=== PATIENT | male | born 1965 | race Caucasian/White ===

== ENCOUNTER → 2019-11-07 08:58 | Outpatient (BNVA) | payer BC, SELFPAY | PROVIDERS: Family Provider Registered Nurse; PCP Registered Nurse; Visit Provider Registered Nurse | DX: E11.22 Type 2 diabetes mellitus with diabetic chronic kidney disease (principal); A52.16 Charcot's arthropathy (tabetic); N28.9 Disorder of kidney and ureter, unspecified; N18.3 Chronic kidney disease, stage 3 (moderate); M17.11 Unilateral primary osteoarthritis, right knee | CPT/HCPCS: 80053 ==

== ENCOUNTER 2020-03-02 17:19 | Inpatient (IN) | payer BC, SELFPAY ==
[2020-03-02 17:54] VITALS: BP 152/96; PULSE 72; RESP 18; TEMP 36.6; O2SAT 97; BMI 40.6
--- NOTE | 2020-03-02 20:11 | W.ED.ABDPA2 ---
HPI - Abdominal Pain General: Chief Complaint: Abdominal Pain Stated Complaint: abd pain Time Seen by Provider: 03/02/20 20:11 Source: patient Mode of arrival: ambulatory Limitations: no limitations History of Present Illness: HPI narrative: Patient comes in today for complaints of generalized abdominal pain going through to his back. Patient reports that he does have some congestive heart failure but overall that is controlled. 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 Patient states that he had a similar episode about 2 weeks ago that resolved with baking soda water. Patient does report some mild relief in pain after belching. Patient appears well. Patient appears in no severe pain at this time. Review of Systems General: Reports: 10 or more systems reviewed and unremarkable except in HPI and below GI: Reports: abdominal pain PFSH ED PFSH: Medical History (Updated 03/02/20 @ 22:43 by Gumaro Henderson DO) Anxiety Bilateral bunions Charcot's arthropathy CKD (chronic kidney disease) Coronary artery disease involving [place] heart without angina pectoris Last coronary angiogram 2017, possible small myocardial bridge mid LAD, luminal irregularities of LAD and circumflex, LVEF 35-40%. Diabetes mellitus Hammer toes of both feet History of atrial flutter Acute episode in 2017, required cardioversion Hypertension Non-pressure chronic ulcer of other part of right foot with unspecified severity Onychomycosis Type 2 diabetes mellitus with diabetic chronic kidney disease Surgical History Status post incision and drainage Left foot abscess 2016 Family History Brother CAD (coronary artery disease) Diabetes Hypertension Father Diabetes Hypertension Mother Hypertension Denies family history of Clotting disorder Dementia Hyperlipidemia Psychiatric illness Chronic kidney disease (CKD) Suicide Anesthesia complication Bleeding disorder Family history of premature coronary artery disease Lung disease Cancer Stroke Social History Smoking and tobacco status: never smoked Second hand smoke exposure: No Alcohol intake: former Physical Exam Const: COMMON NORMALS: no acute distress and patient oriented x3 GENERAL APPEARANCE: cooperative HENMT: COMMON NORMALS: normocephalic, TM's normal bilaterally and Normal external nose present HEAD & SCALP: normal to inspection and normocephalic NOSE: Normal external nose present TYMPANIC MEMBRANE: TM's normal bilaterally MOUTH: Normal oral and palatal mucosa present THROAT: posterior oropharynx normal Eye: GENERAL EYE: appearance normal, both eyes and all related structures Neck/C-Spine: COMMON NORMALS: full ROM Lymph: LYMPHATIC: no lymphadenopathy noted Chest: COMMONS NORMALS: normal inspection of the chest Resp: COMMON NORMALS: normal respiratory effort EFFORT & INSPECTION: Yes able to speak in complete sentences Cardio: COMMON NORMALS: regular rate and regular rhythm RATE: regular rate RHYTHM: regular rhythm GI: PALPATION: Yes Tenderness to palpation present (GI) (epigastric) : COMMON NORMALS: Yes no CVA tenderness BLADDER/KIDNEY EXAM: Yes no CVA tenderness Back/Pelvis: COMMON NORMALS: no CVA tenderness and thoracic and lumbar spine normal to inspection Extremity: COMMON NORMALS: normal to inspection Neuro: COMMON NORMALS: patient oriented x3 and moves all extremities Psych: COMMON NORMALS: mental status grossly normal and cooperative Skin: COMMON NORMALS: no rashes or lesions noted GENERAL SKIN EXAM: no rashes or lesions noted Course Vital Signs: Vital signs: Vital Signs Temperature 97.9 F 03/02/20 17:54 Pulse Rate 77 03/02/20 20:19 Respiratory Rate 18 03/02/20 22:18 Blood Pressure 148/89 03/02/20 20:19 Pulse Oximetry 96 03/02/20 22:18 MDM - Abdominal Pain MDM Narrative: Medical decision making narrative: Patient comes in for complaints of abdominal pain going through to his back. Patient reports a short episode about 2 weeks ago with similar discomfort. Patient reports that the pain returned this afternoon has persisted until this evening. Exam notes abdominal tenderness. Bowel sounds are present. Vital signs were normal. Differential diagnosis includes pancreatitis, cholecystitis, cholelithiasis, bowel obstruction, ACS. Laboratory values noted a lipase of 4900, mild elevation AST and ALT, and a bilirubin of 0.3. CT scan of the abdomen and pelvis noted a prominent gallbladder. Ultrasound of the abdomen limited noted gallstones and open ducts. Patient was medicated with morphine with good results. Patient needs admission for MRCP for further evaluation of the elevated pancreatic enzymes with repeat labs and possible surgical consult. Dr. Henderson was consulted and agreed with plan. Lab Data: Labs: Lab Results 03/02/20 03/02/20 03/02/20 Range/Units 18:10 20:14 20:14 WBC 8.9 (4.0-10.0) 10^3/ uL RBC 4.21 (4.1-5.3) 10^6/u L Hgb 12.1 (11.7-16.6) g/dL Hct 37.2 L (42.0-52.0) % MCV 88.4 (80-94) fL MCH 28.7 (28.0-34.0) pg MCHC 32.5 (30.0-36.0) g/dL RDW 12.0 L (12.1-15.1) % Plt Count 262 (130-400) 10^3/c mm MPV 11.9 H (7.4-10.4) fL Neut % (Auto) 74.2 % Lymph % (Auto) 16.7 % [place] % (Auto) 7.6 % Eos % (Auto) 1.0 % Baso % (Auto) 0.3 % Neut # (Auto) 6.6 (1.8-7.7) 10^3/u L Lymph # (Auto) 1.5 (0.8-4.8) 10^3/u L [place] # (Auto) 0.7 (0.2-0.9) 10^3/u L Eos # (Auto) 0.1 (0.0-0.8) 10^3/u L Baso # (Auto) 0.0 (0.0-0.1) 10^3/u L Nucleated RBC % (a uto) 0 % Nucleated RBCs # 0.0 /100WBC Sodium 141 (136-145) mmol/L Potassium 4.7 (3.5-5.1) mmol/L Chloride 102 (98-107) mmol/L Carbon Dioxide 22 (22-29) mmol/L Anion Gap 21.7 H (5-19) BUN 64 H (6-20) mg/dL Creatinine 2.1 H (0.7-1.2) mg/dL GFR Calculation 33.3 L (90-130) mL/min Glucose 149 H (65-115) mg/dL Calculated Osmolal ity 294 (285-295) mOsm/k g Calcium 10.4 (8.5-10.5) mg/dL Total Bilirubin 0.3 (0.15-1.2) mg/dL AST 78 H (0-40) U/L ALT 53 H (0-41) U/L Alkaline Phosphata se 116 (40-130) IU/L Troponin T Gen 5 n g/L (0-15) ng/mL Total Protein 7.1 (6.6-8.7) g/dL Albumin 4.4 (3.5-5.2) g/dL Globulin 2.7 (1.3-4.6) g/dL Lipase 4960 H (13-60) U/L Urine Color Yellow (Yellow) Urine Appearance Clear (CLEAR) Urine pH 5 (5-7) Ur Specific Gravit y 1.010 (1.005-1.030) Urine Protein 1+ H (Negative) Urine Glucose (UA) Norm (Normal) Urine Ketones Negative (Negative) Urine Blood 2+ H (Negative) Urine Nitrate Negative (Negative) Urine Bilirubin Neg (NEGATIVE) Urine Urobilinogen Norm (Negative) mg/dL Ur Leukocyte Claudia ase Negative (Negative) Urine RBC 5-10 H (0-2) /hpf Urine WBC Rare (0-5) /hpf Ur Squamous Epith Cells Rare (0-5) Urine Bacteria Trace (NONE) 03/02/20 Range/Units 20:14 WBC (4.0-10.0) 10^3/ uL RBC (4.1-5.3) 10^6/u L Hgb (11.7-16.6) g/dL Hct (42.0-52.0) % MCV (80-94) fL MCH (28.0-34.0) pg MCHC (30.0-36.0) g/dL RDW (12.1-15.1) % Plt Count (130-400) 10^3/c mm MPV (7.4-10.4) fL Neut % (Auto) % Lymph % (Auto) % [place] % (Auto) % Eos % (Auto) % Baso % (Auto) % Neut # (Auto) (1.8-7.7) 10^3/u L Lymph # (Auto) (0.8-4.8) 10^3/u L [place] # (Auto) (0.2-0.9) 10^3/u L Eos # (Auto) (0.0-0.8) 10^3/u L Baso # (Auto) (0.0-0.1) 10^3/u L Nucleated RBC % (a uto) % Nucleated RBCs # /100WBC Sodium (136-145) mmol/L Potassium (3.5-5.1) mmol/L Chloride (98-107) mmol/L Carbon Dioxide (22-29) mmol/L Anion Gap (5-19) BUN (6-20) mg/dL Creatinine (0.7-1.2) mg/dL GFR Calculation (90-130) mL/min Glucose (65-115) mg/dL Calculated Osmolal ity (285-295) mOsm/k g Calcium (8.5-10.5) mg/dL Total Bilirubin (0.15-1.2) mg/dL AST (0-40) U/L ALT (0-41) U/L Alkaline Phosphata se (40-130) IU/L Troponin T Gen 5 n g/L 67 H (0-15) ng/mL Total Protein (6.6-8.7) g/dL Albumin (3.5-5.2) g/dL Globulin (1.3-4.6) g/dL Lipase (13-60) U/L Urine Color (Yellow) Urine Appearance (CLEAR) Urine pH (5-7) Ur Specific Gravit y (1.005-1.030) Urine Protein (Negative) Urine Glucose (UA) (Normal) Urine Ketones (Negative) Urine Blood (Negative) Urine Nitrate (Negative) Urine Bilirubin (NEGATIVE) Urine Urobilinogen (Negative) mg/dL Ur Leukocyte Claudia ase (Negative) Urine RBC (0-2) /hpf Urine WBC (0-5) /hpf Ur Squamous Epith Cells (0-5) Urine Bacteria (NONE) EKG Data ^: EKG 1: Attestation: I personally reviewed and interpreted this EKG as follows: (2035, sinus rhythm, no ectopy, no ST elevation, regular rate 72 bpm) Discharge Plan Discharge Patient Disposition: Admitted As Inpatient Clinical Impression: Pancreatitis Qualifiers: Chronicity: acute Pancreatitis type: idiopathic Acute pancreatitis complication: unspecified Qualified Code(s): K85.00 - Idiopathic acute pancreatitis without necrosis or infection Condition: Stable Referrals: Sergio Godfrey FNP [Primary Care Provider] - Coding Level of Care Code ED Wildlife Policy Professional for g Fwd Exam Comprehensive
--- NOTE | 2020-03-02 20:17 | ECG_ITS ---
Measurements Intervals [place] Rate: 73 P: 49 MI: 173 QRS: -36 QRSD: 92 T: 48 QT: 381 QTc: 421 SINUS RHYTHM LEFT AXIS DEVIATION [QRS AXIS < -30] Compared to ECG 10/17/2016 09:05:04 Sinus tachycardia no longer present Electronically Signed On 03-03-2020 11:04:43 CDT by Riaz Trejo MD [id number]
[2020-03-02 20:19] VITALS: BP 148/89; PULSE 77; RESP 17; O2SAT 94
[2020-03-02 20:26] LABS: Basophils % 0.3 %; Eosinophils # 0.1 10^3/uL (0.0-0.8); Hematocrit 37.2 % (42.0-52.0); Hemoglobin 12.1 g/dL (11.7-16.6); Lymphocytes # 1.5 10^3/uL (0.8-4.8); Lymphocytes % 16.7 %; Mean Corpuscular HGB Conc 32.5 g/dL (30.0-36.0); Mean Corpuscular Hemoglobin 28.7 pg (28.0-34.0); Mean Corpuscular Volume 88.4 fL (80-94); Mean Platelet Volume 11.9 fL (7.4-10.4); Monocytes # 0.7 10^3/uL (0.2-0.9); Monocytes % 7.6 %; Neutrophils # 6.6 10^3/uL (1.8-7.7); Neutrophils % 74.2 %; Nucleated Red Blood Cells % 0 %; Platelet Count 262 10^3/cmm (130-400); Red Blood Count 4.21 10^6/uL (4.1-5.3); White Blood Count 8.9 10^3/uL (4.0-10.0)
[2020-03-02 20:41] LABS: Alanine Aminotransferase 53 U/L (0-41); Albumin Level 4.4 g/dL (3.5-5.2); Alkaline Phosphatase 116 IU/L (40-130); Anion Gap 21.7 (5-19); Aspartate Amino Transferase 78 U/L (0-40); Blood Urea Nitrogen 64 mg/dL (6-20); Calcium 10.4 mg/dL (8.5-10.5); Carbon Dioxide 22 mmol/L (22-29); Chloride 102 mmol/L (98-107); Globulin 2.7 g/dL (1.3-4.6); Glomerular Filtration Rate 33.3 mL/min (90-130); Glucose 149 mg/dL (65-115); Osmolality Calculated 294 mOsm/kg (285-295); Potassium 4.7 mmol/L (3.5-5.1); Sodium 141 mmol/L (136-145); Total Bilirubin 0.3 mg/dL (0.15-1.2); Total Protein 7.1 g/dL (6.6-8.7)
[2020-03-02 20:42] LABS: Troponin T (5th) Once 67 ng/mL (0-15)
--- NOTE | 2020-03-02 20:52 | CTR_ITS ---
PROCEDURE INFORMATION: Exam: CT Abdomen And Pelvis Without Contrast Exam date and time: 03/02/2020 9:05 PM Age: 54 years old Clinical indication: Abdominal pain; Localized; Patient HX: C/O upper abd and flank pain; Additional info: Gastric pain, renal dysfuction TECHNIQUE: Imaging protocol: Computed tomography of the abdomen and pelvis without contrast. Radiation optimization: All CT scans at this facility use at least one of these dose optimization techniques: automated exposure control; mA and/or kV adjustment per patient size (includes targeted exams where dose is matched to clinical indication); or iterative reconstruction. COMPARISON: No relevant prior studies available. RADIATION DOSE METRICS: Total DLP: 2085.48 mGy-cm FINDINGS: Liver: Normal. No mass. Gallbladder and bile ducts: Gallbladder appears prominent, ultrasound could further characterize this. Pancreas: Normal. No ductal dilation. Spleen: Normal. No splenomegaly. Adrenals: Normal. No mass. Kidneys and ureters: Normal. No hydronephrosis. Stomach and bowel: Constipation. Appendix: No evidence of appendicitis. Intraperitoneal space: Unremarkable. No free air. No significant fluid collection. Vasculature: Unremarkable. No abdominal aortic aneurysm. Lymph nodes: Unremarkable. No enlarged lymph nodes. Bladder: Unremarkable as visualized. Reproductive: Unremarkable as visualized. Bones/joints: Unremarkable. No acute fracture. Soft tissues: Unremarkable. CT/CT kidney stone [id number] IMPRESSION: 1. Negative for acute inflammatory process. 2. Gallbladder appears prominent, ultrasound could further characterize this. 3. Constipation. Radiation Dose CTDIVOL = (mGy): DLP = 2085.48 (mGy-cm)
[2020-03-02 20:58] LABS: Add Urine Microscopic? YES; Bilirubin Urine Neg (NEGATIVE); Blood Urine 2+ (Negative); Glucose Urine UA Norm (Normal); Ketones Urine Negative (Negative); Leukocyte Esterase Urine Negative (Negative); Nitrate Urine Negative (Negative); Protein Urine 1+ (Negative); Urine Appearance Clear (CLEAR); Urine Color Yellow (Yellow); Urobilinogen Urine Norm (Negative); pH Urine 5 (5-7)
[2020-03-02 21:00] LABS: Bacteria Urine TRACE; Squamous Epithelial Cell Urine RARE (0-5); WBC Urine RARE /hpf (0-5)
[2020-03-02 21:01] LABS: Add Urine Culture? No
[2020-03-02 21:20] LABS: Lipase 4960 U/L (13-60)
--- NOTE | 2020-03-02 21:28 | USR_ITS ---
PROCEDURE INFORMATION: Exam: US Abdomen Limited, Right Upper Quadrant Exam date and time: 03/02/2020 10:03 PM Age: 54 years old Clinical indication: Abdominal pain; Acute; Additional info: Right upper quad, elevated lipase TECHNIQUE: Imaging protocol: Real-time ultrasound of the abdomen with image documentation. Examination was focused on the right upper quadrant. COMPARISON: CT kidney stone [id number] 03/02/2020 9:02 PM FINDINGS: Liver: Hepatic steatosis. Gallbladder: Cholelithiasis without cholecystitis. Common bile duct: Normal. No stones. No dilation. Pancreas: Visualized pancreas is unremarkable. Right kidney: Normal. No mass. No hydronephrosis. US/US abdomen limited [id number] IMPRESSION: 1. Cholelithiasis without cholecystitis. 2. Hepatic steatosis.
[2020-03-02 22:18] VITALS: RESP 18; O2SAT 96
[2020-03-02] MEDS: ondansetron 2 mg/ML SDV 2 mL 4 MG IVP (22:18)
[2020-03-02] MEDS: morphine 4 mg/mL SDV 1 mL IVP (22:18)
[2020-03-02 23:08] LABS: Troponin 5 2HR 74.09 ng/mL (0-15)
[2020-03-02 23:13] VITALS: BP 123/77; PULSE 77; RESP 19; O2SAT 94
[2020-03-02 23:19] LABS: Troponin 5 2HR Delta 7.09 ABS# (0-10)
--- NOTE | 2020-03-02 23:28 | P.HP_ITS ---
Providers/Chief Complaint Admitting Physician: Xuan Sainz MD Primary Care Provider: ANH Olivares Chief Complaint: upper abd and back pain History of Present Illness Ortiz Keene is a 54 year old male with PMH CAD, DM, Aflutter s/p cardiversion 2017, on Xarelto, HTN, CKD, charcot's arthropathy presented to ER with complaints of abdominal lois that started suddenly in the epigatsric area which was radiating in a band like manner to his back. he had nausea but no vomi ting. No bowel disturbances. H/o similar episode 2 weeks ago which resolved within 4-5 hours after eating food. No h/o alcohol intake. h/0 recent intentional weight loss + 50 pounds with improved glyemic control. Diagnostics in Er show elevated AST/ALT, normal ALP, elevated lipase >4900. Troponins are elevated at 67 annd 74, however without significant delta. Review of Systems General: Reports: 10 or more systems reviewed and unremarkable except in HPI and below Const: Denies: fever(s), chills or body aches Eyes: Denies: change in vision, blurry vision or photophobia ENMT: Denies: throat pain, enlarged tonsils, odynophagia, hoarseness or nasal congestion Card: Denies: chest pain, palpitations, irregular heart rhythm, edema, swelling of feet/ankles, lightheadedness, pre-syncope, dyspnea on exertion or orthopnea Resp: Denies: dyspnea, productive cough, non-productive cough, wheezing, stridor, pain on inspiration, change in phlegm color, hemoptysis or chest congestion GI: Denies: abdominal pain, nausea, vomiting, hematemesis, coffee ground emesis, dysphagia, heartburn, diarrhea, constipation, GI cramping, change in stool character, hematochezia or melena : Denies: flank pain, dysuria, urinary frequency, urinary urgency, urinary hesitancy or hematuria Musc: Denies: neck pain, back pain, extremity pain, joint swelling, joint warmth or deformity Neuro: Denies: headache(s), numbness in extremities, weakness in extremities, sensory changes, difficulty walking, frequent falls, dizziness, vertigo, behavioral changes, Slurred speech present or seizure-like activity Psych: Denies: anxiety, depression, suicidal ideation or homicidal ideation Endo: Denies: polyuria, polydipsia, tired all the time, cold intolerance or hot flashes Sami/Lymph: Denies: easy bruising or easy bleeding Medications/Allergies Home Medications Medication Instructions Recorded Confirmed Last Taken Type acetaminophen 300 mg-codeine 30 mg 1 tab PO Q6H PRN 11/16/19 03/03/20 Unknown History tablet prednisone 20 mg tablet 20 mg PO DAILY #30 tab 12/08/19 02/20/20 Unknown Rx blood sugar diagnostic #50 each 01/04/20 02/20/20 Unknown Rx blood sugar diagnostic #100 each 01/08/20 02/20/20 Unknown Rx rivaroxaban 20 mg tablet 20 mg PO QDAY 90 Days #90 tab 01/08/20 02/20/20 Unknown Rx metoprolol tartrate 100 mg tablet 100 mg PO BID #60 tab 01/12/20 03/03/20 Un known Rx potassium chloride 10 mEq 10 meq PO QDAY #90 cap 01/12/20 03/03/20 Unknown Rx capsule,extended release furosemide 40 mg tablet 40 mg PO QAM #90 tab 01/15/20 03/03/20 Unknown Rx losartan 100 0.5 tab PO BID 90 Days #90 tab 02/05/20 03/03/20 Unknown Rx mg-hydrochlorothiazide 25 mg tablet cephalexin 500 mg capsule 500 mg PO BID 7 Days #14 cap 02/09/20 02/20/20 Unknown Rx erythromycin 5 mg/gram (0.5 %) eye 1 applic OPHTHALMIC (EYE) TID #1 gm 02/09/20 03/03/20 Unknown Rx ointment (3.5 gram tube) fluticasone propionate 50 2 spray INTRANASAL DAILY #9.9 ml 02/09/20 03/03/20 Unknown Rx mcg/actuation nasal spray,suspension gemfibrozil 600 mg tablet See Rx Instructions .ROUTE 02/16/20 03/03/20 Unknown Rx .COMPLEX #60 unknown measurement unit code: tablet meloxicam 15 mg tablet 15 mg PO DAILY #30 tab 02/19/20 03/03/20 Unknown Rx gabapentin 300 mg capsule 600 mg PO BID #60 cap 02/22/20 03/03/20 Unknown Rx buspirone 30 mg tablet See Rx Instructions .ROUTE 03/01/20 03/03/20 Unknown Rx .COMPLEX #180 tab metformin 500 mg tablet See Rx Instructions .ROUTE 03/01/20 03/03/20 Unknown Rx .COMPLEX #60 tab Allergies Allergy/AdvReac Type Severity Reaction Status Date / Time No Known Allergies Allergy Verified 02/20/20 08:44 PFSH Acute PFSH: Medical History Anxiety Bilateral bunions Charcot's arthropathy CKD (chronic kidney disease) Coronary artery disease involving [place] heart without angina pectoris Last coronary angiogram 2017, possible small myocardial bridge mid LAD, luminal irregularities of LAD and circumflex, LVEF 35-40%. Diabetes mellitus Hammer toes of both feet History of atrial flutter Acute episode in 2017, required cardioversion Hypertension Non-pressure chronic ulcer of other part of right foot with unspecified severity Onychomycosis Type 2 diabetes mellitus with diabetic chronic kidney disease Surgical History Status post incision and drainage Left foot abscess 2016 Family History Brother CAD (coronary artery disease) Diabetes Hypertension Father Diabetes Hypertension Mother Hypertension Denies family history of Clotting disorder Dementia Hyperlipidemia Psychiatric illness Chronic kidney disease (CKD) Suicide Anesthesia complication Bleeding disorder Family history of premature coronary artery disease Lung disease Cancer Stroke Social History Smoking and tobacco status: never smoked Second hand smoke exposure: No Alcohol intake: former Vitals/I&O/Wt Last Vital Signs Temp 97.9 F 03/02/20 17:54 Pulse 77 03/02/20 23:13 Resp 19 H 03/02/20 23:13 BP 123/77 03/02/20 23:13 Pulse Ox 94 03/02/20 23:13 Weight last 48 hrs Weight 136.078 kg Physical Exam Narrative: EXAM NARRATIVE: GEN: Awake, alert and oriented, no acute distress CVS: S1S2 N RS: CTA B/L Abd: Soft, non distended , bs+ , discomfort to palpation around epigatsric area ELECTROMECHANICAL TECHNOLOGIST: no focal neuro deficits Data : 03/03/20 02:22 03/03/20 02:22 CT Abd/Pel: Radiologist's impression: CT/CT kidney stone [id number] IMPRESSION: 1. Negative for acute inflammatory process. 2. Gallbladder appears prominent, ultrasound could further characterize this. 3. Constipation. U/s abdomen : US/US abdomen limited [id number] IMPRESSION: 1. Cholelithiasis without cholecystitis. 2. Hepatic steatosis. A&P Additional A&P Information Admit to med/surg for acute pancreatitis 1. Acute pancreatitis - patients complaint of typical epigatsric pain with radiation to back asociated with nausea together with elevated lipase appears clinically consistent with pancreatitis. However, of note no gross pancreatic inflammation is seen on Ct abdomen Liver enzymes show mild elevation but ALP and T.bili are normal, making cholangitis unlikely Alternate possibility of that of symptomatic cholelithiasis +/- passing of GB sludge, however ALP being normal makes this less likely IVF NS @ 125cc/hr Pain control with morphine prn Zofran for nausea Trend LFTs with morning labs Check TG level Calcium level within range No h.o alcohol consumption No offending medications noted on drug list 2. DM: insulin sliding scale 3. HTN: Continue metorpolol. Hold ARB-HCTZ combination given increasing cr over the past few months 4. CKD, unclear cause but may be diabetic nephropathy. Patient was previously on chronic meloxicam which has since been discontinued. Hold ARB for now 5. A fib : currently sinus rhythm, rate controlled. Continue Xarelto other medical issues as in HPI Full code DVT ppx: xarelto Attestations Medical Necessity Statement*: >2 midnight anticipated for management of acute pancreatitis, iv hydration , pain control Coding Level of Care Code Acute Lining Vamper for Elizabeth Díaz
--- NOTE | 2020-03-02 23:41 | XRR_ITS ---
PROCEDURE INFORMATION: Exam: XR Chest, 1 View Exam date and time: 03/03/2020 2:35 AM Age: 54 years old Clinical indication: Dyspnea; Additional info: Evalute for effusion TECHNIQUE: Imaging protocol: XR of the chest Views: 1 view. COMPARISON: CR Chest 1 [place] [id number] 03/08/2019 2:57 AM FINDINGS: Lungs: Unremarkable. No consolidation. Pleural space: Unremarkable. No pleural effusion. No pneumothorax. Heart/Mediastinum: Unremarkable. No cardiomegaly. Bones/joints: Unremarkable. XR/XR chest 1V portable [id number] IMPRESSION: No acute findings.
[2020-03-03] VITALS (10 sets, daily range): BP systolic 117–139; BP diastolic 73–85; PULSE 61–76; RESP 16–20; TEMP 36.6–37.2; O2SAT 94–97
[2020-03-03 00:16] LABS: Chol HDL Ratio 4.78 mg/dL (1.0-5.00); Cholesterol 191 mg/dL (0-200); HDL Cholesterol 40 mg/dL (60-100); LDL Cholesterol Calculated 123 mg/dL (50-129); LDL HDL Ratio 3.08 RATIO (0.00-3.22); Triglycerides 142 mg/dL (0-150)
[2020-03-03] MEDS: sodium chloride 0.9% 1,000 ML 125 ML IV ×3 (00:48→17:10)
[2020-03-03] MEDS: morphine 4 mg/mL SDV 1 mL IVP (00:49)
[2020-03-03 02:30] LABS: Basophils % 0.1 %; Eosinophils # 0.1 10^3/uL (0.0-0.8); Eosinophils % 1.4 %; Hematocrit 34.2 % (42.0-52.0); Hemoglobin 11.2 g/dL (11.7-16.6); Lymphocytes # 1.4 10^3/uL (0.8-4.8); Mean Corpuscular HGB Conc 32.7 g/dL (30.0-36.0); Mean Corpuscular Hemoglobin 29.5 pg (28.0-34.0); Mean Platelet Volume 11.5 fL (7.4-10.4); Monocytes # 0.7 10^3/uL (0.2-0.9); Monocytes % 9.3 %; Neutrophils # 5.4 10^3/uL (1.8-7.7); Neutrophils % 70.9 %; Nucleated Red Blood Cells % 0 %; Platelet Count 225 10^3/cmm (130-400); Red Cell Distribution Width 12.1 % (12.1-15.1); White Blood Count 7.7 10^3/uL (4.0-10.0)
[2020-03-03 02:46] LABS: Estmated Average Glucose 160; Hemoglobin A1C 7.2 % (4.0-6.0)
[2020-03-03 02:47] LABS: Alanine Aminotransferase 39 U/L (0-41); Alkaline Phosphatase 100 IU/L (40-130); Anion Gap 14.2 (5-19); Aspartate Amino Transferase 47 U/L (0-40); Blood Urea Nitrogen 56 mg/dL (6-20); Calcium 8.6 mg/dL (8.5-10.5); Carbon Dioxide 27 mmol/L (22-29); Chloride 103 mmol/L (98-107); Globulin 2.4 g/dL (1.3-4.6); Glomerular Filtration Rate 39.8 mL/min (90-130); Glucose 136 mg/dL (65-115); Osmolality Calculated 291 mOsm/kg (285-295); Potassium 4.2 mmol/L (3.5-5.1); Sodium 140 mmol/L (136-145); Total Bilirubin 0.3 mg/dL (0.15-1.2); Total Protein 6.4 g/dL (6.6-8.7)
[2020-03-03 02:48] LABS: Lactate (Lactic Acid level) 0.6 mmol/L (0.5-2.2); Troponin 5 6HR 77.33 ng/mL (0-15)
[2020-03-03 02:50] LABS: Troponin 5 6HR Delta 10.3 ng/L (0-12)
--- NOTE | 2020-03-03 02:53 | ECG_ITS ---
Measurements Intervals [place] Rate: 71 P: 32 IN: 133 QRS: -47 QRSD: 105 T: 48 QT: 395 QTc: 431 SINUS RHYTHM INCOMPLETE RIGHT BUNDLE BRANCH BLOCK [90+ ms QRS DURATION, TERMINAL R IN V1/V2, 40+ ms S IN I/aVL/V4/V5/V6] LEFT ANTERIOR FASCICULAR BLOCK [QRS AXIS <= -45, QR IN I, RS IN II] Compared to ECG 10/17/2016 09:05:04 Incomplete right bundle-branch block now present Left anterior fascicular block now present Sinus tachycardia no longer present Left-axis deviation no longer present Electronically Signed On 03-03-2020 11:08:44 CDT by Riaz Trejo MD [id number]
[2020-03-03] MEDS: morphine 4 mg/mL SDV 1 mL 2 MG IVP ×3 (06:21→21:07)
[2020-03-03] MEDS: FUROsemide 40 mg Tablet PO (06:22)
[2020-03-03 06:49] LABS: Glucose Point of Care 123 mg/dL (70-110)
[2020-03-03] MEDS: gemfibrozil 600 mg Tablet PO ×2 (08:37→17:10)
[2020-03-03] MEDS: rivaroxaban 10 mg Tablet 20 MG PO (08:37)
[2020-03-03] MEDS: metoprolol tartrate 50 mg Tablet 100 MG PO ×2 (08:37→17:10)
[2020-03-03] MEDS: gabapentin 300 mg Capsule 600 MG PO ×2 (08:40→17:10)
[2020-03-03 11:40] LABS: Glucose Point of Care 134 mg/dL (70-110)
--- NOTE | 2020-03-03 14:34 | P.PN_ITS ---
Subjective Subjective: Interval history: Chart reviewed, improved renal function. Resting quietly in bed, has had some improvement in abdominal discomfort and seems to be tolerating clear liquid diet. Location and quality of pain is unchanged. Discussed need to continue bowel rest, IV fluid hydration and pain control at this time which he is agreeable to. Has been voiding well. Medications: Reviewed: Yes Medication Review Details: Active Medications Generic Name Dose Route Start Last Admin Trade Name Freq PRN Reason Stop Dose Admin Al Hydrox/Mg [place] x/Simethicone 15 ml 03/02/20 23:41 Maalox PO Q6H PRN INDIGESTION Buspirone HCl 30 mg 03/03/20 10:00 03/03/20 08:42 Buspar PO 30 mg Q12H RANDALL Administration Dextrose 25 ml 03/02/20 23:40 D50w IVP ONCE PRN hypoglycemia prot ocol Protocol Dextrose 50 ml 03/02/20 23:40 D50w IVP PRN PRN hypoglycemia prot ocol Protocol Furosemide 40 mg 03/03/20 06:00 03/03/20 06:22 Lasix PO 40 mg QAM RANDALL Administration Gabapentin 600 mg 03/03/20 09:00 03/03/20 08:40 Neurontin PO 600 mg BID RANDALL Administration Gemfibrozil 600 mg 03/03/20 09:00 03/03/20 08:37 Lopid PO 600 mg BID RANDALL Administration Glucagon 1 mg 03/02/20 23:40 Glucagen IM ONCE PRN Adult Acute Hypog lycemia Prot. Protocol Dextrose 500 mls @ 100 mls /hr 03/02/20 23:40 D5w IV ONCE PRN Adult Acute Hypog lycemia Prot Protocol Sodium Chloride 1,000 mls @ 125 m ls/hr 03/02/20 23:45 03/03/20 08:36 Sodium Chloride 0.9% IV 125 mls/hr .Q8H RANDALL Administration Insulin Aspart 0 unit 03/03/20 08:00 03/03/20 11:44 Novolog SUBCUT Not Given WM&BEDTIME RANDALL Protocol Metoprolol Tartrat e 100 mg 03/03/20 09:00 03/03/20 08:37 Lopressor PO 100 mg BID RANDALL Administration Morphine Sulfate 2 mg 03/02/20 23:41 03/03/20 13:30 Morphine IVP 2 mg Q4H PRN Administration SEVERE PAIN Naloxone HCl 0.1 mg 03/02/20 23:41 Narcan IVP Q2M PRN OPIATERV Ondansetron HCl 4 mg 03/02/20 23:41 Zofran IVP Q8H PRN vomiting, or N/V if npo Rivaroxaban 20 mg 03/03/20 09:00 03/03/20 08:37 Xarelto PO 20 mg DAILY RANDALL Administration No Known Allergies Allergy (Verified 02/20/20 08:44) Vitals/I&O/Wt Last Vital Signs Temp 98.1 F 03/03/20 11:36 Pulse 63 03/03/20 11:36 Resp 18 03/03/20 13:30 BP 139/73 03/03/20 11:36 Pulse Ox 97 03/03/20 11:36 03/02/20 03/03/20 03/03/20 22:59 06:59 14:59 Intake Total 2175 / 2175 Output Total 410 / 410 600 / 600 Balance -410 / -410 1575 / 1575 Weight last 48 hrs Weight 136.078 kg Physical Exam Const: COMMON NORMALS: no acute distress, patient oriented x3 and alert GENERAL APPEARANCE: cooperative and comfortable NUTRITIONAL APPEARANCE: obese morbidly obese ORIENTATION/CONSCIOUSNESS: Yes awake HENMT: COMMON NORMALS: normocephalic, atraumatic, hearing grossly normal bilaterally and moist oral mucous membranes HEAD & SCALP: normocephalic and atraumatic Eye: COMMON NORMALS: Equal, round and reactive pupils present, EOMs intact bilaterally and conjunctivae normal CONJUNCTIVA: Yes conjunctivae normal PUPIL: Yes Equal, round and reactive pupils present Neck/C-Spine: COMMON NORMALS: full ROM GENERAL: Yes normal visual inspection and Yes trachea midline Chest: CHEST: Yes Symmetrical chest wall rise Resp: COMMON NORMALS: normal respiratory effort, No retractions, No use of accessory muscles and clear to auscultation bilaterally EFFORT & INSPECTION: Yes able to speak in complete sentences, Yes symmetric chest movement and No tachypneic AUSCULTATION: clear to auscultation bilaterally Cardio: COMMON NORMALS: regular rate, regular rhythm, S1 normal heart sound present, S2 normal heart sound present and No murmurs present (Cardio) RATE: regular rate RHYTHM: regular rhythm HEART SOUNDS: S1 normal heart sound present and S2 normal heart sound present GI: COMMON NORMALS: Normal to inspection, nondistended, normoactive bowel amy nds present and Soft to palpation INSPECTION: Yes central obesity PALPATION: Yes Soft to palpation, Yes Tenderness to palpation present (GI) (generalized with radiation to back) and No Rebound tenderness present Extremity: COMMON NORMALS: normal to inspection, full ROM, no clubbing, cyanosis or edema and no pedal edema Neuro: COMMON NORMALS: patient oriented x3, moves all extremities, no focal motor deficits and no sensory deficits noted SENSORIUM/ORIENTATION: Yes alert Psych: COMMON NORMALS: mental status grossly normal, Normal thought process present, cooperative, normal affect and speech normal SPEECH: Yes normal speech THOUGHT PROCESS: Normal thought process present Skin: COMMON NORMALS: no jaundice, no petechiae and no mottling NARRATIVE SKIN EXAM: -healing scab on anterior R leg Data : 03/03/20 02:22 03/03/20 02:22 Micro: Microbiology 03/03/20 02:22 Blood Culture - Preliminary Blood SPECIMEN COLLECTED 03/03/20 02:14 Blood Culture - Preliminary Blood SPECIMEN COLLECTED A&P Assessment and plan (1) Pancreatitis: -Presented with epigastric pain with radiation to the back, noted significant lipase elevation at 4960 -No noted inflammation or abnormality involving the pancreas on imaging -Unclear etiology as no history of EtOH abuse, diabetes appears to be controlled, no underlying liver disease, unlikely to be medication induced per review of med rec -Continue pain control, antiemetics as needed, IV fluid hydration, currently on clear liquid diet. Can advance diet as tolerated -Imaging reviewed showing constipation, cholelithiasis without cholecystitis and hepatic steatosis Status: Acute Qualifiers: Acute pancreatitis complication: unspecified Chronicity: acute Pancreatitis type: idiopathic Qualified Code(s): K85.00 - Idiopathic acute p ancreatitis without necrosis or infection (2) Type 2 diabetes mellitus with diabetic chronic kidney disease: -hx of NIDDM type II, on metformin -controlled based on A1c-7.2 -Accucheks, ISS, hypoglycemia precautions -consistent carb diet once PO appropriate Status: Chronic Qualifiers: Chronic kidney disease stage: stage 3 (moderate) Diabetes mellitus long term care social worker insulin use: without long term care social worker use Qualified Code(s): E11.22 - Type 2 diabetes mellitus with diabetic chronic kidney disease; N18.3 - Chronic kidney disease, stage 3 (moderate) (3) Hypertension: -Normotensive, continue to monitor vital signs -Continue oral antihypertensives Status: Chronic Qualifiers: Hypertension type: essential hypertension Qualified Code(s): I10 - Essential (primary) hypertension (4) History of atrial flutter: -Rate controlled, continue to monitor heart rate -Continue beta-maria isabel, anticoagulation with Xarelto Status: Chronic (5) Charcot's arthropathy: -Follows up with Dr. 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 -Baseline creatinine appears to be around 1-1.5 -Has superimposed MARTIN likely secondary to dehydration -On IVF hydration -Continue to monitor renal function, avoid nephrotoxins, renally dose meds Status: Chronic Qualifiers: Chronic kidney disease stage: stage 3 (moderate) Qualified Code(s): N18.3 - Chronic kidney disease, stage 3 (moderate) (7) Anxiety: Status: Chronic Additional A&P Information -Morbid obesity: BMI-41 kg/m2 -GI ppx with famotidine -DVT ppx not needed as on Xarelto -Dispo: home -Code status: FULL code Attestations Medical Necessity Statement*: Patient requires hospitalization for continued management of acute pancreatitis, requiring continued IV fluid hydration, pain control in addition to management of MARTIN on CKD stage 3 with need for continued monitoring of renal function. Time Spent in Patient Care: Greater than 35 minutes (>than 50% of time spent in counselling and/or direct pt care on unit) . 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 [facility] Fwd Exam Comprehensive Diagnoses Pancreatitis K85.00 Acute pancreatitis complication: unspecified Chronicity: acute Pancreatitis type: idiopathic Type 2 diabetes mellitus with diabetic chronic kidney disease E11.22; N18.3 Chronic kidney disease stage: stage 3 (moderate) Diabetes mellitus long term care social worker insulin use: without long term care social worker use Hypertension I10 Hypertension type: essential hypertension History of atrial flutter Z86.79 Charcot's arthropathy M14.60 CKD (chronic kidney disease) N18.3 Chronic kidney disease stage: stage 3 (moderate) Anxiety F41.9
[2020-03-03] MEDS: famotidine 20 mg/2 mL INJ IVP (15:18)
[2020-03-03 16:15] LABS: Glucose Point of Care 113 mg/dL (70-110)
[2020-03-03 20:08] LABS: Glucose Point of Care 147 mg/dL (70-110)
[2020-03-04] VITALS: BP 134/88; PULSE 67; RESP 20; TEMP 36.9; O2SAT 95
[2020-03-04] MEDS: sodium chloride 0.9% 1,000 ML 125 ML IV ×3 (00:37→15:21)
[2020-03-04 04:00] VITALS: BP 126/78; PULSE 65; RESP 16; TEMP 37.1; O2SAT 94
[2020-03-04] MEDS: ondansetron 2 mg/ML SDV 2 mL 4 MG IVP (05:24)
[2020-03-04] MEDS: FUROsemide 40 mg Tablet PO (05:24)
[2020-03-04] MEDS: famotidine 20 mg/2 mL INJ IVP (05:24)
[2020-03-04 06:21] LABS: Glucose Point of Care 184 mg/dL (70-110)
[2020-03-04 06:29] LABS: Basophils % 0.2 %; Eosinophils # 0.2 10^3/uL (0.0-0.8); Eosinophils % 1.6 %; Hematocrit 34.3 % (42.0-52.0); Hemoglobin 11.1 g/dL (11.7-16.6); Lymphocytes # 1.3 10^3/uL (0.8-4.8); Lymphocytes % 13.6 %; Mean Corpuscular HGB Conc 32.4 g/dL (30.0-36.0); Mean Corpuscular Volume 89.6 fL (80-94); Mean Platelet Volume 11.9 fL (7.4-10.4); Monocytes # 0.8 10^3/uL (0.2-0.9); Monocytes % 8.4 %; Nucleated Red Blood Cells % 0 %; Platelet Count 224 10^3/cmm (130-400); Red Blood Count 3.83 10^6/uL (4.1-5.3); Red Cell Distribution Width 11.9 % (12.1-15.1); White Blood Count 9.3 10^3/uL (4.0-10.0)
[2020-03-04 06:42] LABS: Anion Gap 14.4 (5-19); Blood Urea Nitrogen 35 mg/dL (6-20); Calcium 8.3 mg/dL (8.5-10.5); Carbon Dioxide 26 mmol/L (22-29); Chloride 102 mmol/L (98-107); Glomerular Filtration Rate 45.6 mL/min (90-130); Glucose 159 mg/dL (65-115); Lipase 164 U/L (13-60); Osmolality Calculated 287 mOsm/kg (285-295); Potassium 4.4 mmol/L (3.5-5.1); Sodium 138 mmol/L (136-145)
[2020-03-04 07:45] VITALS: BP 120/65; PULSE 69; RESP 18; TEMP 36.8; O2SAT 96
[2020-03-04] MEDS: gabapentin 300 mg Capsule 600 MG PO ×2 (08:20→17:56)
[2020-03-04] MEDS: metoprolol tartrate 50 mg Tablet 100 MG PO ×2 (08:21→17:54)
[2020-03-04] MEDS: rivaroxaban 10 mg Tablet 20 MG PO (08:21)
[2020-03-04] MEDS: gemfibrozil 600 mg Tablet PO ×2 (08:21→17:54)
[2020-03-04 11:05] LABS: Glucose Point of Care 124 mg/dL (70-110)
[2020-03-04 11:22] VITALS: BP 114/79; PULSE 59; RESP 18; TEMP 37; O2SAT 97
[2020-03-04 15:18] VITALS: BP 128/76; PULSE 64; RESP 18; TEMP 36.9; O2SAT 99
--- NOTE | 2020-03-04 15:43 | P.PN_ITS ---
Subjective Subjective: Interval history: Chart reviewed, renal function continues to improve. Has been ambulating in hallway intermittently throughout the day, feels much better today, advanced to consistent carb diet this AM which he is tolerating well. Minimal abdominal discomfort. Required 2 mg of IV morphine overnight, had 950 mL urine output overnight. Would like to see how he feels with more oral intake before considering d/c home. Medications: Reviewed: Yes Medication Review Details: Active Medications Generic Name Dose Route Start Last Admin Trade Name Freq PRN Reason Stop Dose Admin Hydrocodone Bitart /Acetaminophen 1 tab 03/04/20 15:35 [place] 5-325 Mg PO Q4H PRN MODERATE PAIN Al Hydrox/Mg [place] x/Simethicone 15 ml 03/02/20 23:41 Maalox PO Q6H PRN INDIGESTION Buspirone HCl 30 mg 03/03/20 10:00 03/04/20 10:56 Buspar PO 30 mg Q12H RANDALL Administration Dextrose 25 ml 03/02/20 23:40 D50w IVP ONCE PRN hypoglycemia prot ocol Protocol Dextrose 50 ml 03/02/20 23:40 D50w IVP PRN PRN hypoglycemia prot ocol Protocol Famotidine 20 mg 03/04/20 18:00 Pepcid Tab PO BID RANDALL Furosemide 40 mg 03/03/20 06:00 03/04/20 05:24 Lasix PO 40 mg QAM RANDALL Administration Gabapentin 600 mg 03/03/20 09:00 03/04/20 08:20 Neurontin PO 600 mg BID RANDALL Administration Gemfibrozil 600 mg 03/03/20 09:00 03/04/20 08:21 Lopid PO 600 mg BID RANDALL Administration Glucagon 1 mg 03/02/20 23:40 Glucagen IM ONCE PRN Adult Acute Hypog lycemia Prot. Protocol Dextrose 500 mls @ 100 mls /hr 03/02/20 23:40 D5w IV ONCE PRN Adult Acute Hypog lycemia Prot Protocol Sodium Chloride 1,000 mls @ 75 ml s/hr 03/02/20 23:45 03/04/20 15:21 Sodium Chloride 0.9% IV 125 mls/hr .[id number] RANDALL Administration Insulin Aspart 0 unit 03/03/20 08:00 03/04/20 11:20 Novolog SUBCUT Not Given WM&BEDTIME RANDALL Protocol Metoprolol Tartrat e 100 mg 03/03/20 09:00 03/04/20 08:21 Lopressor PO 100 mg BID RANDALL Administration Morphine Sulfate 2 mg 03/02/20 23:41 03/03/20 21:07 Morphine IVP 2 mg Q4H PRN Administration SEVERE PAIN Naloxone HCl 0.1 mg 03/02/20 23:41 Narcan IVP Q2M PRN OPIATERV Ondansetron HCl 4 mg 03/02/20 23:41 03/04/20 05:24 Zofran IVP 4 mg Q8H PRN Administration vomiting, or N/V if npo Rivaroxaban 20 mg 03/03/20 09:00 03/04/20 08:21 Xarelto PO 20 mg DAILY RANDALL Administration No Known Allergies Allergy (Verified 02/20/20 08:44) Vitals/I&O/Wt Last Vital Signs Temp 98.4 F 03/04/20 15:18 Pulse 64 03/04/20 15:18 Resp 18 03/04/20 15:18 BP 128/76 03/04/20 15:18 Pulse Ox 99 03/04/20 15:18 03/04/20 03/04/20 03/04/20 06:59 14:59 22:59 Intake Total 931.25 / 4826.25 1688.75 / 1688.75 872.917 / 2561.667 Output Total 500 / 2225 900 / 900 Balance 431.25 / 2601.25 788.75 / 788.75 872.917 / 1661.667 Weight last 48 hrs Weight 136.078 kg Physical Exam Const: COMMON NORMALS: no acute distress, patient oriented x3 and alert GENERAL APPEARANCE: cooperative and comfortable NUTRITIONAL APPEARANCE: obese morbidly obese ORIENTATION/CONSCIOUSNESS: Yes awake HENMT: COMMON NORMALS: normocephalic, atraumatic, hearing grossly normal bilaterally and moist oral mucous membranes HEAD & SCALP: normocephalic and atraumatic Eye: COMMON NORMALS: Equal, round and reactive pupils present, EOMs intact bilaterally and conjunctivae normal CONJUNCTIVA: Yes conjunctivae normal PUPIL: Yes Equal, round and reactive pupils present Neck/C-Spine: COMMON NORMALS: full ROM GENERAL: Yes normal visual inspection and Yes trachea midline Chest: CHEST: Yes Symmetrical chest wall rise Resp: COMMON NORMALS: normal respiratory effort, No retractions, No use of accessory muscles and clear to auscultation bilaterally EFFORT & INSPECTION: Yes able to speak in complete sentences, Yes symmetric chest movement and No tachypneic AUSCULTATION: clear to auscultation bilaterally Cardio: COMMON NORMALS: regular rate, regular rhythm, S1 normal heart sound present, S2 normal heart sound present and No murmurs present (Cardio) RATE: regular rate RHYTHM: regular rhythm HEART SOUNDS: S1 normal heart sound present and S2 normal heart sound present GI: COMMON NORMALS: Normal to inspection, nondistended, normoactive bowel sounds present, Soft to palpation and non-tender INSPECTION: Yes central obesity PALPATION: Yes Soft to palpation and No Rebound tenderness present Extremity: COMMON NORMALS: normal to inspection, full ROM, no clubbing, cyanosis or edema and no pedal edema Neuro: COMMON NORMALS: patient oriented x3, moves all extremities, no focal motor deficits, no sensory deficits noted and gait normal SENSORIUM/ORIENTATION: Yes alert Psych: COMMON NORMALS: mental status grossly normal, Normal thought process present, cooperative, normal affect and speech normal SPEECH: Yes normal speech THOUGHT PROCESS: Normal thought process present Skin: COMMON NORMALS: no jaundice, no petechiae and no mottling NARRATIVE SKIN EXAM: -healing scab on anterior R leg Data : 03/04/20 05:45 03/04/20 05:45 Micro: Microbiology 03/03/20 02:22 Blood Culture - Preliminary Blood NEGATIVE TO DATE 03/03/20 02:14 Blood Culture - Preliminary Blood NEGATIVE TO DATE A&P Assessment and plan (1) Pancreatitis: -Presented with epigastric pain with radiation to the back, noted significant lipase elevation at 4960; lipase significantly decreased today (164) -No noted inflammation or abnormality involving the pancreas on imaging -Unclear etiology as no history of EtOH abuse, diabetes appears to be controlled, no underlying liver disease, unlikely to be medication induced per review of med rec -Continue pain control, antiemetics as needed, IV fluid hydration, advanced to consistent carb diet. -Imaging reviewed showing constipation, cholelithiasis without cholecystitis and hepatic steatosis Status: Acute Qualifiers: Acute pancreatitis complication: unspecified Chronicity: acute Pancreatitis type: idiopathic Qualified Code(s): K85.00 - Idiopathic acute pancreatitis without necrosis or infection (2) Type 2 diabetes mellitus with diabetic chronic kidney disease: -hx of NIDDM type II, on metformin -controlled based on A1c-7.2 -Accucheks, ISS, hypoglycemia precautions -consistent carb diet once PO appropriate Status: Chronic Qualifiers: Chronic kidney disease stage: stage 3 (moderate) Diabetes mellitus joint terminal attack controller insulin use: without jail use Qualified Code(s): E11.22 - Type 2 diabetes mellitus with diabetic chronic kidney disease; N18.3 - Chronic kidney disease, stage 3 (moderate) (3) Hypertension: -Normotensive, continue to monitor vital signs -Continue oral antihypertensives Status: Chronic Qualifiers: Hypertension type: essential hypertension Qualified Code(s): I10 - Essential (primary) hypertension (4) History of atrial flutter: -Rate controlled, continue to monitor heart rate -Continue beta-maria isabel, anticoagulation with Xarelto Status: Chronic (5) Charcot's arthropathy: -Follows up with Dr. 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 Courtney l function continues to improve Status: Chronic Qualifiers: Chronic kidney disease stage: stage 3 (moderate) Qualified Code(s): N18.3 - Chronic kidney disease, stage 3 (moderate) (7) Anxiety: Status: Chronic Additional A&P Information -Morbid obesity: BMI-41 kg/m2 -GI ppx with famotidine -DVT ppx not needed as on Xarelto -Dispo: home -Code status: FULL code Attestations Medical Necessity Statement*: Patient requires hospitalization for continued treatment of acute pancreatitis, diet advanced today. Time Spent in Patient Care: 16 - 35 minutes (>than 50% of time spent in counselling and/or direct pt care on unit) . 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 [facility] Fwd Exam Comprehensive Diagnoses Pancreatitis K85.00 Acute pancreatitis complication: unspecified Chronicity: acute Pancreatitis type: idiopathic Type 2 diabetes mellitus with diabetic chronic kidney disease E11.22; N18.3 Chronic kidney disease stage: stage 3 (moderate) Diabetes mellitus joint terminal attack controller insulin use: without joint terminal attack controller use Hypertension I10 Hypertension type: essential hypertension History of atrial flutter Z86.79 Charcot's arthropathy M14.60 CKD (chronic kidney disease) N18.3 Chronic kidney disease stage: stage 3 (moderate) Anxiety F41.9
[2020-03-04 17:15] LABS: Glucose Point of Care 115 mg/dL (70-110)
[2020-03-04] MEDS: famotidine 20 mg Tablet PO (17:54)
[2020-03-04 19:23] VITALS: BP 137/84; PULSE 61; RESP 19; TEMP 36.6; O2SAT 98
[2020-03-04 20:31] LABS: Glucose Point of Care 203 mg/dL (70-110)
[2020-03-05] VITALS: BP 122/81; PULSE 58; RESP 18; TEMP 36.6; O2SAT 94
[2020-03-05] MEDS: sodium chloride 0.9% 1,000 ML 75 ML IV (03:11)
[2020-03-05 03:57] VITALS: BP 109/63; PULSE 64; RESP 18; TEMP 36.6; O2SAT 95
[2020-03-05] MEDS: FUROsemide 40 mg Tablet PO (05:28)
[2020-03-05 05:31] LABS: Chloride 106 mmol/L (98-107); Glucose 128 mg/dL (65-115); Potassium 4.5 mmol/L (3.5-5.1); Sodium 142 mmol/L (136-145)
[2020-03-05 05:47] LABS: Anion Gap 15.5 (5-19); Blood Urea Nitrogen 29 mg/dL (6-20); Calcium 8.9 mg/dL (8.5-10.5); Carbon Dioxide 25 mmol/L (22-29); Glomerular Filtration Rate 49.1 mL/min (90-130); Osmolality Calculated 293 mOsm/kg (285-295)
[2020-03-05 06:27] LABS: Glucose Point of Care 179 mg/dL (70-110)
[2020-03-05] MEDS: famotidine 20 mg Tablet PO (07:27)
[2020-03-05] MEDS: rivaroxaban 10 mg Tablet 20 MG PO (07:27)
[2020-03-05] MEDS: gemfibrozil 600 mg Tablet PO (07:27)
[2020-03-05] MEDS: gabapentin 300 mg Capsule 600 MG PO (07:27)
[2020-03-05] MEDS: metoprolol tartrate 50 mg Tablet 100 MG PO (07:28)
[2020-03-05] MEDS: HYDROcodone-acetaminophen 5-325 mg Tablet 1 TAB PO (07:28)
[2020-03-05 07:35] VITALS: BP 139/78; PULSE 68; RESP 18; TEMP 36.7; O2SAT 93
--- NOTE | 2020-03-05 08:58 | P.DS_ITS ---
Discharge Providers Date of Admission: 03/02/20 22:44 Date of Discharge: March 05, 2020 Attending Provider at Admission: Xuan Sainz MD Attending Provider at Discharge: Briana Galicia MD Primary Care Provider: ANH Olivares Diagnoses at Discharge Discharge Diagnosis (1) Pancreatitis: Status: Resolved Problem details: -Presented with epigastric pain with radiation to the back, noted significant lipase elevation at 4960; lipase significantly decreased today (164) -No noted inflammation or abnormality involving the pancreas on imaging -Unclear etiology as no history of EtOH abuse, diabetes appears to be controlled, no underlying liver disease, unlikely to be medication induced per review of med rec -Continue pain control, antiemetics as needed, IV fluid hydration, advanced to consistent carb diet. -Imaging reviewed showing constipation, cholelithiasis without cholecystitis and hepatic steatosis Qualifiers: Acute pancreatitis complication: unspecified Chronicity: acute Pancreatitis type: idiopathic Qualified Code(s): K85.00 - Idiopathic acute pancreatitis without necrosis or infection (2) Type 2 diabetes mellitus with diabetic chronic kidney disease: Status: Chronic Problem details: -hx of NIDDM type II, on metformin -controlled based on A1c-7.2 -Accucheks, ISS, hypoglycemia precautions -consistent carb diet once PO appropriate Qualifiers: Diabetes mellitus manager terminal insulin use: without long-term use Chronic kidney disease stage: stage 3 (moderate) Qualified Code(s): E11.22 - Type 2 diabetes mellitus with diabetic chronic kidney disease; N18.3 - Chronic kidney disease, stage 3 (moderate) (3) Hypertension: Status: Chronic Problem details: -Normotensive, continue to monitor vital signs -Continue oral antihypertensives Qualifiers: Hypertension type: essential hypertension Qualified Code(s): I10 - Essential (primary) hypertension (4) History of atrial flutter: Status: Chronic Problem details: -Acute episode in 2017, required cardioversion -Rate controlled, continue to monitor heart rate -Continue beta-maria isabel, anticoagulation with Xarelto (5) Charcot's arthropathy: Status: Chronic Problem details: -Follows up with Dr. Srivastava -Arthropathy involves left lower extremity (6) CKD (chronic kidney disease): Status: Chronic Problem details: -Has known CKD stage III secondary to diabetic nephropathy -Baseline creatinine appears to be around 1-1.5 -Has superimposed MARTIN likely secondary to dehydration -On IVF hydration -Continue to monitor renal function, avoid nephrotoxins, renally dose meds. Renal function continues to improve Qualifiers: Chronic kidney disease stage: stage 3 (moderate) Qualified Code(s): N18.3 - Chronic kidney disease, stage 3 (moderate) (7) Anxiety: Status: Chronic Other Information Additional DC diagnoses/information: -Morbid obesity: BMI-41 kg/m2 Reason for Visit Reason for Visit: Reason For Visit: upper abd and back pain Hospital Course Hospital Course: Patient was admitted to the medical surgical floor, started on IV fluid hydration, analgesics and antiemetics as needed for treatment of a cute pancreatitis. There was no noted inflammation or abnormality involving the pancreatic area on imaging the lipase was quite high on admission. He responded well to medical management, has been able to tolerate oral intake without difficulty, has had good urinary output consistently, been hemodynamically stable and afebrile throughout his hospital stay. He was noted to have acute kidney injury superimposed on CKD. Renal function has improved with hydration and is currently at his baseline. Etiology of acute pancreatitis is currently unclear. He will need to continue to follow-up with his primary care provider. He is advised to seek medical attention immediately should his symptoms recur. He is encouraged to continue appropriate hydration. He should continue to monitor his blood glucose at home. Discharge Summary: -Patient to follow-up with primary care provider within 1 week Physical Exam Const: COMMON NORMALS: no acute distress, patient oriented x3 and alert GENERAL APPEARANCE: cooperative and comfortable NUTRITIONAL APPEARANCE: obese morbidly obese ORIENTATION/CONSCIOUSNESS: Yes awake HENMT: COMMON NORMALS: normocephalic, atraumatic, hearing grossly normal bilaterally and moist oral mucous membranes HEAD & SCALP: normocephalic and atraumatic Eye: COMMON NORMALS: Equal, round and reactive pupils present, EOMs intact bilaterally and conjunctivae normal CONJUNCTIVA: Yes conjunctivae normal PUPIL: Yes Equal, round and reactive pupils present Neck/C-Spine: COMMON NORMALS: full ROM GENERAL: Yes normal visual inspection and Yes trachea midline Chest: CHEST: Yes Symmetrical chest wall rise Resp: COMMON NORMALS: normal respiratory effort, No retractions, No use of accessory muscles and clear to auscultation bilaterally EFFORT & INSPECTION: Yes able to speak in complete sentences, Yes symmetric chest movement and No tachypneic AUSCULTATION: clear to auscultation bilaterally Cardio: COMMON NORMALS: regular rate, regular rhythm, S1 normal heart sound present, S2 normal heart sound present and No murmurs present (Cardio) RATE: regular rate RHYTHM: regular rhythm HEART SOUNDS: S1 normal heart sound present and S2 normal heart sound present GI: COMMON NORMALS: Normal to inspection, nondistended, normoactive bowel sounds present, Soft to palpation and non-tender INSPECTION: Yes central obesity PALPATION: Yes Soft to palpation and No Rebound tenderness present Extremity: COMMON NORMALS: normal to inspection, full ROM, no clubbing, cyanosis or edema and no pedal edema Neuro: COMMON NORMALS: patient oriented x3, moves all extremities, no focal motor deficits, no sensory deficits noted and gait normal SENSORIUM/ORIENTATION: Yes alert Psych: COMMON NORMALS: mental status grossly normal, Normal thought process present, cooperative, normal affect and speech normal SPEECH: Yes normal speech THOUGHT PROCESS: Normal thought process present Skin: COMMON NORMALS: no jaundice, no petechiae and no mottling NARRATIVE SKIN EXAM: -healing scab on anterior R leg Discharge Data Data Completed and Pending: Completed Studies During Hospitalization Category Date Time Status CT kidney stone 7 4176 Urgent Cat Scan 03/02/20 20:52 Completed XR chest 1V alis ble [id number] Routine Exams 03/02/20 23:41 Completed US abdomen limite d 45909 Urgent Ultrasound 03/02/20 21:28 Completed Pending at discharge Category Date Time Status Blood Culture AM LABS Lab 03/03/20 02:22 Results Labs from last 24 hours 03/05/20 03/05/20 03/04/20 06:15 04:40 20:22 Sodium 142 Potassium 4.5 Chloride 106 Carbon Dioxide 25 Anion Gap 15.5 BUN 29 H Creatinine 1.5 H GFR Calculation 49.1 L Glucose 128 H POC Glucose 179 203 Calculated Osmolal ity 293 Calcium 8.9 03/04/20 03/04/20 17:01 11:03 Sodium Potassium Chloride Carbon Dioxide Anion Gap BUN Creatinine GFR Calculation Glucose POC Glucose 115 124 Calculated Osmolal ity Calcium Vitals: Last Vital Signs Temp 98.0 F 03/05/20 07:35 Pulse 68 03/05/20 07:35 Resp 18 03/05/20 07:35 BP 139/78 03/05/20 07:35 Pulse Ox 93 03/05/20 07:35 Discharge Plan Discharge Patient Disposition: Home, Self-Care Condition: Stable Prescriptions: Continued fluticasone propionate 50 mcg/actuation spray,suspension 2 spray INTRANASAL DAILY Qty: 9.9 RF: 3 acetaminophen-codeine [Tylenol-Codeine #3] 300-30 mg tablet 1 tab PO Q6H PRN (Reason: Mild Pain (Scale Score 1-4)) RF: 0 Xarelto 20 mg tablet 20 mg PO QDAY 90 Days Qty: 90 RF: 3 (DME) OneTouch Ultra Blue Test Strip Strip See Rx Instructions .ROUTE .MEDSUPPLY Qty: 100 RF: 0 potassium chloride 10 mEq capsule, extended release 10 meq PO QDAY Qty: 90 RF: 3 metoprolol tartrate 100 mg tablet 100 mg PO BID Qty: 60 RF: 1 furosemide [Lasix] 40 mg tablet 40 mg PO QAM Qty: 90 RF: 0 gemfibrozil 600 mg tablet See Rx Instructions .ROUTE .COMPLEX Qty: 60 RF: 0 gabapentin 300 mg capsule 600 mg PO BID Qty: 60 RF: 1 buspirone 30 mg tablet See Rx Instructions .ROUTE .COMPLEX Qty: 180 RF: 0 Changed metformin 500 mg tablet 500 mg PO BID 30 Days Qty: 60 RF: 0 Discontinued cephalexin 500 mg capsule 500 mg PO BID 7 Days Qty: 14 RF: 0 erythromycin 5 mg/gram (0.5 %) ointment 1 applic ophthalmic (eye) TID Qty: 1 RF: 0 losartan-hydrochlorothiazide 100-25 mg tablet 0.5 tab PO BID 90 Days Qty: 90 RF: 3 meloxicam 15 mg tablet 15 mg PO DAILY Qty: 30 RF: 0 Discharge Orders: Discharge Order (Routine); Ordered 03/05/20 Ordered By: Briana Galicia Referrals: Sergio Godfrey FNP [Primary Care Provider] - 4-7 days (Post hospital discharge follow up. Treated for acute pancreatitis and MARTIN. ) Discharge Diet: Diabetic Discharge Activity: Resume usual activity Discharge Attestations Time Spent in Discharge Care*: greater than 30 min Specific Discharge Activities: Specific discharge activities: educating patient, discussing with case investigator/social workers/dc planners, documenting/other paperwork and evaluating patient/reviewing data Status at Discharge: Cognitive status at discharge: cognitively intact , Behavioral status at discharge: cooperative and independent in ADL's , Functional status at discharge: independent ambulation Overall status at discharge: patient is back to baseline Quality Metrics Clinical Quality Measures During this hospital stay, did patient experience: None Coding Level of Care Code Acute Process Environmental Technician for Elizabeth Fwjorge Diagnoses Pancreatitis K85.00 Acute pancreatitis complication: unspecified Chronicity: acute Pancreatitis type: idiopathic Type 2 diabetes mellitus with diabetic chronic kidney disease E11.22; N18.3 Diabetes mellitus manager terminal insulin use: without manager terminal use Chronic kidney disease stage: stage 3 (moderate) Hypertension I10 Hypertension type: essential hypertension History of atrial flutter Z86.79 Charcot's arthropathy M14.60 CKD (chronic kidney disease) N18.3 Chronic kidney disease stage: stage 3 (moderate) Anxiety F41.9
[2020-03-05 09:04] VITALS: BP 139/78; PULSE 68; RESP 18; TEMP 36.7; O2SAT 93
[2020-03-05 11:17] LABS: Glucose Point of Care 132 mg/dL (70-110)
== END 2020-03-05 11:12 | disposition home or self-care (01) | DRG 439 ==
LOC: ER 22:43 → MEDSURG 23:02
PROVIDERS: Nurse Practitioner Family; Admitting Provider Student in an Organized Health Care Education/Training Program; PCP Registered Nurse; Visit Provider Family Medicine
DX: K85.00 Idiopathic acute pancreatitis without necrosis or infection (principal); N17.9 Acute kidney failure, unspecified; Z68.41 Body mass index [BMI] 40.0-44.9, adult; I25.10 Atherosclerotic heart disease of native coronary artery without angina pectoris; E11.22 Type 2 diabetes mellitus with diabetic chronic kidney disease; I12.9 Hypertensive chronic kidney disease with stage 1 through stage 4 chronic kidney disease, or unspecified chronic kidney disease; N18.3 Chronic kidney disease, stage 3 (moderate); Z79.01 Long term (current) use of anticoagulants; E11.610 Type 2 diabetes mellitus with diabetic neuropathic arthropathy; F41.9 Anxiety disorder, unspecified; M21.612 Bunion of left foot; M21.611 Bunion of right foot; M20.42 Other hammer toe(s) (acquired), left foot; M20.41 Other hammer toe(s) (acquired), right foot; B35.1 Tinea unguium; K76.0 Fatty (change of) liver, not elsewhere classified; E11.21 Type 2 diabetes mellitus with diabetic nephropathy; I48.91 Unspecified atrial fibrillation; E86.0 Dehydration; E66.01 Morbid (severe) obesity due to excess calories; K59.00 Constipation, unspecified; K81.9 Cholecystitis, unspecified; Z79.84 Long term (current) use of oral hypoglycemic drugs
CPT/HCPCS: 12345; 36415; 36416; 71045; 74176; 76705; 80048; 80053; 80061; 81001; 82962; 83036; 83605; 83690; 84484; 85025; 87040; 93005; 93010; 96372; 96375; 99283; J1815; J2270; J2405; J3490; J7030

== ENCOUNTER → 2020-04-29 10:53 | Outpatient (BNVA) | payer BC, SELFPAY | PROVIDERS: PCP Registered Nurse; Visit Provider Registered Nurse | DX: R50.9 Fever, unspecified (principal); J01.40 Acute pansinusitis, unspecified | CPT/HCPCS: 87635 ==

== ENCOUNTER → 2020-10-07 08:44 | Outpatient (BNVA) | payer BC, SELFPAY | PROVIDERS: PCP Registered Nurse; Visit Provider Registered Nurse | DX: E11.42 Type 2 diabetes mellitus with diabetic polyneuropathy (principal) | CPT/HCPCS: 80053; 83036 ==

== ENCOUNTER 2020-12-16 07:01 | Outpatient (CLI) | payer OTHER, SELFPAY ==
--- NOTE | 2020-12-16 07:24 | ECG_ITS ---
[facility] Test Date: 2020-12-16 Pat Name: Ortiz Keene Department: Room: Gender: Male Emissions Technician: Teresa Ascencio : 1965 Requested By: Flash Wilson Order Number: [id number] Reading MD: FLASH WILSON Interpretive Statements NAME OF STUDY: LEXISCAN SESTAMIBI STRESS TEST INDICATION: Chest Pain NOTE: Please note that this is the electrocardiogram portion of the Lexiscan/Sestamibi stress test. The perfusion scan will be documented separately. DATA: Baseline heart rate was 66 beats per minute. Baseline blood pressure was 185/107 Millimeters of mercury. Target heart rate was 167. Maximum heart rate achieved was 90. which was 53% of the predicted target heart rate. Maximum blood pressure was 202/113 millimeters of mercury. The reason for ending the test was completion of the protocol. The patient did not experience any symptoms. ELECTROCARDIOGRAM: BASELINE: Sinus rhythm. Normal axis. Otherwise, no ST-T changes suggestive of ischemia noted. No arrhythmia noted. EXERCISE: After Lexiscan injection, no ST-T changes suggestive of ischemic noted. No arrhythmia noted. CONCLUSION: Please note due to baseline abnormality of the EKG specificity and sensitivity of the EKG portion of LexiScan MIBI stress test will be low 1. EKG not suggestive of ischemia 2. Lexiscan injection unremarkable. 3. Perfusion scan will be documented separately. Electronically Signed On 12-19-2020 19:41:[address] LIGHT SERVICER by FLASH WILSON [id number]
--- NOTE | 2020-12-16 07:24 | NMCV_ITS ---
NM keo perf SPECT r/s* [id number] [place]wood, Ortiz Age: 55 Gender: M : 1965 Exam Date: 12/16/2020 08:38 Ordering Phys: Flash Olivares MD ([email or web address]) Technologist: SLY Mcgee Exam Location: [facility] Indications: CARDIOMYOPATHY STRESS TEST Please see separate stress test report in [facility] for full findings IMAGE PROTOCOL Rest/Stress 1 Lexiscan Day Radiopharmaceutical Dose (mCi) Administration Site Administered by Rest: Tc-99m 10.9 IV SLY Foster Sestamibi Stress:Tc-99m 33.0 IV SLY Foster Sestamibi Rest: 16-Dec-2020 60 Discovery 630 Stress: 16-Dec-2020 30 Discovery 630 0.4mg Lexiscan. Images obtained in supine and prone position. SPECT RESULTS Technical Quality: Excellent Raw Data Analysis: Normal Image Corrections: No attenuation or motion correction applied Summed Stress Score: 2 Summed Rest Score: 2 Summed Difference Score: 1 PERFUSION FINDINGS Medium-sized area of patchy decreased tracer uptake noted in the basal to mid inferior inferolateral wall on both rest and stress images' suggestive of artifact FUNCTIONAL RESULTS (calculated via Gated SPECT) Stress Image LV EF (%): 58 Stress EDV (mL):145 TID: 1.01 Stress ESV (mL):61 Rest Image LV EF (%): 58 FUNCTIONAL FINDINGS: There is normal left ventricular systolic function. IMPRESSIONS This study is negative for ischemia. EKG segment will be documented separately. Flash Olivares MD (Electronically Signed) Final Date: 17 December 2020 22:07 S
[2020-12-16 07:25] VITALS: BMI 42.7
[2020-12-16 09:11] VITALS: BP 160/96; PULSE 85
[2020-12-16] MEDS: regadenoson 0.4 Mg/5 ml Syringe IVP (09:11)
--- NOTE | 2020-12-16 11:00 | USCV_ITS ---
Ortiz Keene Age: 55 Gender: M : 1965 Exam Date: 12/16/2020 07:41 Ordering Phys: Flash Olivares MD ([email or web address]) Technologist: Milla Wakefield Exam Location: [facility] [place] Indication: CAD BP: 138 / 90 HR: 60 Rhythm: Sinus Technical Quality: Fair MEASUREMENTS (Male / Female) Normal Values 2D ECHO LV Diastolic Diameter PLAX 4.4 cm 4.2 - 5.9 / 3.9 - 5.3 cm LV Systolic Diameter PLAX 3.1 cm IVS Diastolic Thickness 2.1 cm 0.6 - 1.0 / 0.6 - 0.9 cm IVS Systolic Thickness 2.2 cm LVPW Diastolic Thickness 1.6 cm 0.6 - 1.0 / 0.6 - 0.9 cm LVPW Systolic Thickness 2.0 cm RV Chamber Size 3.6 cm LVOT Diameter 2.0 cm LV Ejection Fraction 2D Teich 55.3 % LV Ejection Fraction MOD 2C 45.2 % LV Ejection Fraction 2C AL 47.3 % LA Diameter 4.6 cm LA Width 4.4 cm LA Height 5.4 cm RA Width 4.0 cm RA Height 5.6 cm Aorta at Sinotubular Diameter 2.9 cm M-MODE LV Diastolic Diameter MM 5.0 cm 4.2 - 5.9 / 3.9 - 5.3 cm LV Systolic Diameter MM 3.5 cm LV Ejection Fraction MM Teich 58.2 % IVS Diastolic Thickness MM 1.8 cm 0.6 - 1.0 / 0.6 - 0.9 cm IVS Systolic Thickness MM 1.8 cm LVPW Diastolic Thickness MM 1.4 cm 0.6 - 1.0 / 0.6 - 0.9 cm LVPW Systolic Thickness MM 1.6 cm Aortic Annulus Diameter 3.5 cm LA Ao Ratio MM 1.3 MV E Point Septal Separation 0.4 cm DOPPLER AV Peak Velocity 128.0 cm/s LVOT Peak Velocity 123.0 cm/s AV Area Cont Eq vti 2.7 cm squared AV Area Cont Eq pk 3.1 cm squared MV Area PHT 4.8 cm squared Mitral E to A Ratio 1.6 MV E' Velocity 50.5 cm/s Mitral E to MV E' Ratio 14.8 Mitral E to LV E' Lateral Ratio 15.3 Mitral E to LV E' Septal Ratio 14.6 TR Peak Velocity 306.7 cm/s TR Peak Gradient 37.6 mmHg Right Atrial Pressure 3.0 mmHg Pulmonary Artery Systolic Pressu 40.6 mmHg PV Peak Velocity 72.0 cm/s RV Acceleration Time 0.1 s RV Ejection Time 0.3 s RV AcT/ET 0.2 FINDINGS Left Ventricle Normal left ventricular cavity size. Normal left ventricular systolic function. No regional wall motion abnormalities. Left ventricular ejection fraction is estimated at 58 %. Normal diastolic function. Right Ventricle The right ventricle is normal in size and function. Mild pulmonary hypertension, RVSP 40.6 mmHg. Right Atrium The right atrium is normal in size. Left Atrium The left atrium is normal in size. Mitral Valve Structurally normal mitral valve without significant stenosis or prolapse. There is no mitral regurgitation. Aortic Valve Structurally normal aortic valve without significant sclerosis or stenosis. There is no aortic regurgitation. Tricuspid Valve Structurally normal tricuspid valve without significant stenosis or regurgitation. Pulmonic Valve Structurally normal pulmonic valve without significant stenosis. There is no pulmonic regurgitation. Pericardium Normal pericardium without effusion. Aorta Normal ascending aorta dimension. CONCLUSIONS 1-Normal left ventricular cavity size. Normal left ventricular systolic function. No regional wall motion abnormalities. Left ventricular ejection fraction is estimated at 58 %. Normal diastolic function. 2-There is no pericardial effusion. 3-No significant valve abnormalities. 4-The right ventricle is normal in size and function. Mild pulmonary hypertension, RVSP 40.6 mmHg. 5-Right atrial pressure is around 5 mm of mercury. 6-When compared to the prior echocardiogram dated 16 October 2016 left ventricular ejection fraction has improved from moderately depressed 40% to normal 58% now. Flash Olivares MD (Electronically Signed) Final Date: 18 December 2020 18:03 S
== END 2020-12-16 07:02 | disposition home or self-care (01) ==
LOC: RAD 07:03
PROVIDERS: PCP Registered Nurse; Visit Provider Internal Medicine Cardiovascular Disease
DX: I25.10 Atherosclerotic heart disease of native coronary artery without angina pectoris (principal); R07.9 Chest pain, unspecified; I27.20 Pulmonary hypertension, unspecified
CPT/HCPCS: 78452; 93017; 93306; A9500; J2785

== ENCOUNTER → 2021-04-15 14:22 | Outpatient (BNVA) | payer OTHER, SELFPAY | PROVIDERS: PCP Registered Nurse; Visit Provider Registered Nurse | DX: E11.42 Type 2 diabetes mellitus with diabetic polyneuropathy (principal); I10 Essential (primary) hypertension; B07.8 Other viral warts | CPT/HCPCS: 83036 ==

== ENCOUNTER → 2021-09-10 11:08 | Outpatient (BNVA) | payer OTHER, SELFPAY | PROVIDERS: PCP Registered Nurse; Visit Provider Registered Nurse | DX: Z11.52 Encounter for screening for COVID-19 (principal) | CPT/HCPCS: 87635 ==

== ENCOUNTER → 2021-11-25 11:18 | Outpatient (BNVA) | payer OTHER, SELFPAY | PROVIDERS: PCP Registered Nurse; Visit Provider Registered Nurse | DX: E11.42 Type 2 diabetes mellitus with diabetic polyneuropathy (principal); I10 Essential (primary) hypertension; E78.5 Hyperlipidemia, unspecified | CPT/HCPCS: 80053; 80061; 83036; 85025 ==

== ENCOUNTER → 2022-10-06 09:53 | Outpatient (BNVA) | payer OTHER, SELFPAY | PROVIDERS: PCP Registered Nurse; Visit Provider Registered Nurse | DX: E11.9 Type 2 diabetes mellitus without complications (principal) | CPT/HCPCS: 80053; 80061; 83036; 85025 ==

== ENCOUNTER 2023-01-24 13:47 | Emergency (ER) | payer OTHER, SELFPAY ==
[2023-01-24 13:50] VITALS: BP 136/78; PULSE 88; RESP 19; TEMP 36.3; O2SAT 100; BMI 39.0
--- NOTE | 2023-01-24 14:09 | ED_ITS ---
HPI - Nausea/Vomiting/Diarrhea General: Chief complaint: Nausea/Vomiting/Diarrhea Stated complaint: N/V, abd pain Time Seen by Provider: 01/24/23 14:08 History of Present Illness: Patient presents to the ER with complaints of nausea vomiting diarrhea x2 days. Patient said it actually started on Wednesday for couple days but then went away and come back on Wednesday. Patient did say he had a fever on Wednesday but has not had fever since then. Patient says belly does not actually hurt but is kind of generically burn diffusely. Patient does not have any history chronically of any of these issues nor has he been around any known sick contacts. MD elicited complaint: nausea, vomiting and diarrhea Onset (ago): day(s) (Approximately 4 days ago but then got better and started back 2 days ago) Description of vomiting: watery Description of diarrhea: watery Associated nausea: Yes Associated abdominal pain: Yes Location of pain: Diffuse Pain consistency: constant Severity: mild Quality: other (Burning) Exacerbating factors: eating Relieving factors: none Associated symtoms: Reports nausea; Denies anxiety, change in vision, chest pain, dysuria, headache(s) or palpitations Treatment prior to arrival: immodium Review of Systems General: Reports: 10 or more systems reviewed and unremarkable except in HPI and below Const: Reports: fever(s); Denies: chills Eyes: Denies: change in vision or photophobia ENMT: Denies: throat pain or odynophagia Card: Denies: chest pain, palpitations or irregular heart rhythm Resp: Denies: dyspnea, productive cough or non-productive cough GI: Reports: abdominal pain, nausea, vomiting and diarrhea : Denies: flank pain, difficulty urinating or dysuria Musc: Denies: neck pain or back pain Skin/Breast: Denies: rash or pruritus Neuro: Denies: headache(s), numbness in extremities or weakness in extremities Psych: Denies: anxiety or depression Endo: Denies: polyuria, polydipsia or tired all the time Sami/Lymph: Denies: easy bruising or easy bleeding PFS ED PFSH: Medical History Anxiety Bilateral bunions Cardiomyopathy Charcot's arthropathy Managed by Dr. Srivastava -Arthropathy involves left lower extremity CHF (congestive heart failure) CKD (chronic kidney disease) Coronary artery disease involving upper [place] heart without angina pectoris Last coronary angiogram 2017, possible small myocardial bridge mid LAD, luminal irregularities of LAD and circumflex, LVEF 35-40%. Diabetes mellitus Hammer toes of both feet History of atrial flutter -Acute episode in 2017, required cardioversion -Rate controlled, continue to monitor heart rate -Continue beta-maria isabel, anticoagulation with Xarelto Hypertension -Normotensive, continue to monitor vital signs -Continue oral antihypertensives Non-pressure chronic ulcer of other part of right foot with unspecified severity Onychomycosis Type 2 diabetes mellitus with diabetic chronic kidney disease -hx of NIDDM type II, on metformin -controlled based on A1c-7.2 -Accucheks, ISS, hypoglycemia precautions -consistent carb diet once PO appropriate Surgical History Status post incision and drainage Left foot abscess 2016 Family History Brother CAD (coronary artery disease) Diabetes Hypertension Father Diabetes Hypertension Mother Hypertension Denies family history of Clotting disorder Dementia Hyperlipidemia Psychiatric illness Chronic kidney disease (CKD) Suicide Anesthesia complication Bleeding disorder Family history of premature coronary artery disease Lung disease Cancer Stroke Social History Smoking and tobacco status: former smoker Second hand smoke exposure: No Alcohol intake: former Physical Exam Const: COMMON NORMALS: no acute distress, average body habitus, patient oriented x3, no limitations, healthy appearing, alert and well nourished HENMT: COMMON NORMALS: normocephalic, atraumatic, hearing grossly normal bilaterally, external ears normal, Normal external nose present and moist oral mucous membranes HEAD & SCALP: normocephalic and atraumatic NOSE: Normal external nose present EXTERNAL EAR: Yes external ears normal Eye: COMMON NORMALS: Equal, round and reactive pupils present, EOMs intact bilaterally, conjunctivae normal and no scleral icterus CONJUNCTIVA: Yes conjunctivae normal PUPIL: Yes Equal, round and reactive pupils present Neck/C-Spine: COMMON NORMALS: full ROM, no lymphadenopathy, supple, no meningeal signs, no JVD and Thyroid normal THYROID: Thyroid normal Lymph: LYMPHATIC: no lymphadenopathy noted Chest: COMMONS NORMALS: normal inspection of the chest and normal palpation of entire chest wall Resp: COMMON NORMALS: normal respiratory effort, No retractions, No use of accessory muscles and clear to auscultation bilaterally AUSCULTATION: clear to auscultation bilaterally Cardio: COMMON NORMALS: no JVD GI: COMMON NORMALS: Normal to inspection, nondistended, normoactive bowel sounds present, Soft to palpation, non-tender, No hepatosplenomegaly present and no masses PALPATION: Yes Soft to palpation and Yes No hepatosplenomegaly present : COMMON NORMALS: Yes no CVA tenderness BLADDER/KIDNEY EXAM: Yes no CVA tenderness Back/Pelvis: COMMON NORMALS: no CVA tenderness Neuro: COMMON NORMALS: patient oriented x3 SENSORIUM/ORIENTATION: Yes alert MENINGEAL SIGNS: Yes no meningeal signs Course Vital Signs: Vital signs: Vital Signs Temperature 97.4 F L 01/24/23 13:50 Pulse Rate 81 01/24/23 14:42 Respiratory Rate 18 01/24/23 14:42 Blood Pressure 132/79 01/24/23 14:42 Pulse Oximetry 97 01/24/23 14:42 Oxygen Delivery Me thod Room Air 01/24/23 14:42 MDM - Nausea/Vomiting/Diarrhea Medical Decision Making Patient presents to the ER with complaints of nausea vomiting diarrhea. Patient was examined history was taken. Lab work was obtained which was essentially benign other than increase in the patient's chronic elevated creatinine to 2.4. Patient was given Zofran and fluid in his IV patient said he is felt much better. Labs were discussed with the patient as well. Patient will be given a prescription for Zofran to go home on and instructions on gastroenteritis and told to push fluids. Patient should follow-up with his family doctor within 1 week if needed. Differential Diagnosis Likely gastroenteritis and dehydration; Unlikely traveler's diarrhea, food poisoning, clostridium difficile infection or drug-induced nausea and vomiting Lab Data 01/24/23 14:20 01/24/23 14:20 Laboratory Results WBC 7.8 10^3/uL (4.0-10.0) 01/24/23 14:20 RBC 4.72 10^6/uL (4.1-5.3) 01/24/23 14:20 Hgb 14.0 g/dL (11.7-16.6) 01/24/23 14:20 Hct 42.1 % (42.0-52.0) 01/24/23 14:20 MCV 89.2 fl (80-94) 01/24/23 14:20 MCH 29.7 pg (28.0-34.0) 01/24/23 14:20 MCHC 33.3 g/dL (30.0-36.0) 01/24/23 14:20 RDW 12.6 % (12.1-15.1) 01/24/23 14:20 Plt Count 277 10^3/cmm (130-400) 01/24/23 14:20 MPV 10.8 fL (7.4-10.4) H 01/24/23 14:20 Neut % (Auto) 66.2 % 01/24/23 14:20 Lymph % (Auto) 20.7 % 01/24/23 14:20 [place] % (Auto) 8.9 % 01/24/23 14:20 Eos % (Auto) 3.6 % 01/24/23 14:20 Baso % (Auto) 0.1 % 01/24/23 14:20 Neut # (Auto) 5.18 10^3/uL (1.8-7.7) 01/24/23 14:20 Lymph # (Auto) 1.6 10^3/uL (0.8-4.8) 01/24/23 14:20 [place] # (Auto) 0.7 10^3/uL (0.2-0.9) 01/24/23 14:20 Eos # (Auto) 0.3 10^3/uL (0.0-0.8) 01/24/23 14:20 Baso # (Auto) 0.0 10^3/uL (0.0-0.1) 01/24/23 14:20 Nucleated RBC % (auto) 0 % 01/24/23 14:20 Nucleated RBCs # 0.0 /100WBC 01/24/23 14:20 Sodium 136 mmol/L (136-145) 01/24/23 14:20 Potassium 4.2 mmol/L (3.5-5.1) 01/24/23 14:20 Chloride 101 mmol/L (98-107) 01/24/23 14:20 Carbon Dioxide 22 mmol/L (22-29) 01/24/23 14:20 Anion Gap 17.2 (5-19) 01/24/23 14:20 BUN 48 mg/dL (6-20) H 01/24/23 14:20 Creatinine 2.4 mg/dL (0.7-1.2) H 01/24/23 14:20 GFR Calculation 28.2 mL/min (90-130) L 01/24/23 14:20 Glucose 114 mg/dL (65-115) 01/24/23 14:20 Calculated Osmolality 295 mOsm/kg (285-295) 01/24/23 14:20 Calcium 9.3 mg/dL (8.5-10.5) 01/24/23 14:20 Magnesium 2.4 mg/dL (1.7-2.3) H 01/24/23 14:20 Total Bilirubin 0.4 mg/dL (0.15-1.2) 01/24/23 14:20 AST 22 U/L (0-40) 01/24/23 14:20 ALT 16 U/L (0-41) 01/24/23 14:20 Alkaline Phosphatase 81 U/L (40-130) 01/24/23 14:20 Total Protein 8.1 g/dL (6.6-8.7) 01/24/23 14:20 Albumin 4.4 g/dL (3.5-5.2) 01/24/23 14:20 Globulin 3.7 g/dL (1.3-4.6) 01/24/23 14:20 Amylase 70 U/L (28-100) 01/24/23 14:20 Lipase 67 U/L (13-60) H 01/24/23 14:20 Urine Color Yellow (Yellow) 01/24/23 14:40 Urine Appearance Clear (CLEAR) 01/24/23 14:40 Urine pH 5 (5-7) 01/24/23 14:40 Ur Specific [place] 1.020 (1.005-1.030) 01/24/23 14:40 Urine Protein 1+ (Negative) H 01/24/23 14:40 Urine Glucose (UA) Norm (Normal) 01/24/23 14:40 Urine Ketones Negative (Negative) 01/24/23 14:40 Urine Blood Neg (Negative) 01/24/23 14:40 Urine Nitrate Negative (Negative) 01/24/23 14:40 Urine Bilirubin Neg (Negative) 01/24/23 14:40 Urine Urobilinogen Norm mg/dL (Negative) 01/24/23 14:40 Ur Leukocyte Esterase Negative (Negative) 01/24/23 14:40 Urine RBC None /hpf (0-2) 01/24/23 14:40 Urine WBC Rare /hpf (0-5) 01/24/23 14:40 Ur Squamous Epith Cells None /hpf (0-5) 01/24/23 14:40 Amorphous Sediment Not Reportable 01/24/23 14:40 Urine Bacteria 1+ /hpf (NONE) H 01/24/23 14:40 Hyaline Casts 0-4 /lpf H 01/24/23 14:40 Discharge Plan Discharge Patient Disposition: Home Clinical Impression: Gastroenteritis, Dehydration Condition: Stable Prescriptions: New ondansetron HCl 4 mg tablet 4 mg PO Q8H PRN (Reason: nausea and vomiting) Qty: 14 0RF No Action (DME) diabetic supplies, miscellan. Misc See Rx Instructions .ROUTE .MEDSUPPLY Qty: 1 0RF Rx Instructions: Pair of Diabetic Shoes acetaminophen-codeine 300-30 mg tablet 1 tab PO TID PRN (DME) [place] boot See Rx Instructions .Route .MEDSUPPLY Qty: 1 0RF Rx Instructions: As directed by [employer] (DME) Diabetic Shoes See Rx Instructions .Route .MEDSUPPLY Qty: 1 0RF Rx Instructions: As directed mupirocin 2 % ointment 1 applic topical BID 14 Days Qty: 22 2RF albuterol sulfate [ProAir HFA] 90 mcg/actuation HFA aerosol inhaler 2 puff inhalation 6XD PRN (Reason: shortness of breath or wheezing) Qty: 8.5 0RF fluocinolone [[place]-Smoothe/FS Body Oil] 0.01 % oil 1 applic topical .biweekly 30 Days Qty: 118.28 1RF Rx Instructions: apply to scalp, set overnight then shower, 2 x weekly PRN losartan 100 mg tablet 100 mg PO DAILY Qty: 90 4RF potassium chloride 10 mEq capsule, extended release 10 meq PO QDAY Qty: 90 4RF metoprolol tartrate 100 mg tablet 100 mg PO BID Qty: 180 4RF furosemide 40 mg tablet See Rx Instructions .ROUTE .COMPLEX Qty: 90 0RF Dose Instruction: TAKE 1 TABLET BY MOUTH DAILY Rx Instructions: TAKE 1 TABLET BY MOUTH DAILY Xarelto 20 mg tablet 20 mg PO QDAY Qty: 90 4RF metformin 500 mg tablet See Rx Instructions .ROUTE .COMPLEX Qty: 180 0RF Dose Instruction: TAKE 1 TABLET BY MOUTH TWICE DAILY Rx Instructions: TAKE 1 TABLET BY MOUTH TWICE DAILY buspirone 30 mg tablet See Rx Instructions .ROUTE .COMPLEX Qty: 180 0RF Dose Instruction: TAKE 1 TABLET BY MOUTH EVERY 12 HOURS Rx Instructions: TAKE 1 TABLET BY MOUTH EVERY 12 HOURS gemfibrozil 600 mg tablet See Rx Instructions .ROUTE .COMPLEX Qty: 180 0RF Dose Instruction: TAKE 1 TABLET BY MOUTH TWICE DAILY Rx Instructions: TAKE 1 TABLET BY MOUTH TWICE DAILY (DME) OneTouch Ultra Test Strip See Rx Instructions .ROUTE .COMPLEX Qty: 100 0RF Dose Instruction: USE 1 STRIP TO TEST BLOOD SUGAR TWICE DAILY DIRECTED Rx Instructions: USE 1 STRIP TO TEST BLOOD SUGAR TWICE DAILY DIRECTED fluticasone propionate 50 mcg/actuation spray,suspension See Rx Instructions .ROUTE .COMPLEX Qty: 16 0RF Dose Instruction: SHAKE LIQUID AND USE 1 SPRAY IN EACH NOSTRIL DAILY NEEDED FOR ALLERGIC RHINITIS Rx Instructions: SHAKE LIQUID AND USE 1 SPRAY IN EACH NOSTRIL DAILY NEEDED FOR ALLERGIC RHINITIS gabapentin 300 mg capsule See Rx Instructions .ROUTE .COMPLEX Qty: 120 0RF Dose Instruction: TAKE 2 CAPSULES BY MOUTH TWICE DAILY Rx Instructions: TAKE 2 CAPSULES BY MOUTH TWICE DAILY Mounjaro 5 mg/0.5 mL pen injector See Rx Instructions .ROUTE .COMPLEX Qty: 4 0RF Dose Instruction: INJECT 5 MG (0.5 ML) SUBCUTANEOUSLY ONCE WEEKLY Rx Instructions: INJECT 5 MG (0.5 ML) SUBCUTANEOUSLY ONCE WEEKLY Discharge Orders: Discharge ED (Routine); Ordered 01/24/23 Ordered By: Valentín Mcneal Referrals: Serigo Godfrey, CODING QUALITY COORDINATOR [Primary Care Provider] - 1 week Patient Instructions: Gastroenteritis (ED) Coding Level of Care Code ED [employer] for Elizabeth Díaz
[2023-01-24 14:30] LABS: Basophils % 0.1 %; Eosinophils # 0.3 10^3/uL (0.0-0.8); Eosinophils % 3.6 %; Hematocrit 42.1 % (42.0-52.0); Lymphocytes # 1.6 10^3/uL (0.8-4.8); Lymphocytes % 20.7 %; Mean Corpuscular HGB Conc 33.3 g/dL (30.0-36.0); Mean Corpuscular Hemoglobin 29.7 pg (28.0-34.0); Mean Corpuscular Volume 89.2 fl (80-94); Mean Platelet Volume 10.8 fL (7.4-10.4); Monocytes # 0.7 10^3/uL (0.2-0.9); Monocytes % 8.9 %; Neutrophils # 5.18 10^3/uL (1.8-7.7); Neutrophils % 66.2 %; Nucleated Red Blood Cells % 0 %; Platelet Count 277 10^3/cmm (130-400); Red Blood Count 4.72 10^6/uL (4.1-5.3); Red Cell Distribution Width 12.6 % (12.1-15.1); White Blood Count 7.8 10^3/uL (4.0-10.0)
[2023-01-24] MEDS: sodium chloride 0.9% 1,000 ML 999 ML IV (14:41)
[2023-01-24] MEDS: ondansetron 2 mg/ML SDV 2 mL 4 MG IVP (14:41)
[2023-01-24 14:42] VITALS: BP 132/79; PULSE 81; RESP 18; O2SAT 97
[2023-01-24 14:54] LABS: Alanine Aminotransferase 16 U/L (0-41); Albumin Level 4.4 g/dL (3.5-5.2); Alkaline Phosphatase 81 U/L (40-130); Amylase 70 U/L (28-100); Anion Gap 17.2 (5-19); Aspartate Amino Transferase 22 U/L (0-40); Blood Urea Nitrogen 48 mg/dL (6-20); Calcium 9.3 mg/dL (8.5-10.5); Carbon Dioxide 22 mmol/L (22-29); Chloride 101 mmol/L (98-107); Globulin 3.7 g/dL (1.3-4.6); Glomerular Filtration Rate 28.2 mL/min (90-130); Glucose 114 mg/dL (65-115); Lipase 67 U/L (13-60); Magnesium 2.4 mg/dL (1.7-2.3); Osmolality Calculated 295 mOsm/kg (285-295); Potassium 4.2 mmol/L (3.5-5.1); Sodium 136 mmol/L (136-145); Total Bilirubin 0.4 mg/dL (0.15-1.2); Total Protein 8.1 g/dL (6.6-8.7)
[2023-01-24 15:10] LABS: Bilirubin Urine Neg (Negative); Blood Urine Neg (Negative); Glucose Urine UA Norm (Normal); Ketones Urine Negative (Negative); Nitrate Urine Negative (Negative); Protein Urine 1+ (Negative); Urine Appearance Clear (CLEAR); Urine Color Yellow (Yellow); pH Urine 5 (5-7)
[2023-01-24 15:11] LABS: Add Urine Culture? No; Add Urine Microscopic? YES; Bacteria Urine 1+ /hpf; Hyaline Casts Urine 0-4 /lpf; Leukocyte Esterase Urine Negative (Negative); Urobilinogen Urine Norm (Negative); WBC Urine RARE /hpf (0-5)
== END 2023-01-24 16:43 | disposition home or self-care (01) ==
PROVIDERS: Emergency Provider Emergency Medicine; PCP Registered Nurse
DX: K52.9 Noninfective gastroenteritis and colitis, unspecified (principal); E86.0 Dehydration; Z79.84 Long term (current) use of oral hypoglycemic drugs; Z87.891 Personal history of nicotine dependence; I13.0 Hypertensive heart and chronic kidney disease with heart failure and stage 1 through stage 4 chronic kidney disease, or unspecified chronic kidney disease; E11.22 Type 2 diabetes mellitus with diabetic chronic kidney disease; N18.9 Chronic kidney disease, unspecified; I50.9 Heart failure, unspecified; I25.10 Atherosclerotic heart disease of native coronary artery without angina pectoris
CPT/HCPCS: 80053; 81001; 82150; 83690; 83735; 85025; 96361; 96374; 99284; J2405; J7030

== ENCOUNTER → 2023-01-29 10:45 | Outpatient (BNVA) | payer OTHER, SELFPAY | PROVIDERS: PCP Registered Nurse; Visit Provider Registered Nurse | DX: E11.9 Type 2 diabetes mellitus without complications (principal) | CPT/HCPCS: 80053; 83036 ==

== ENCOUNTER 2023-02-01 21:10 | Emergency (ER) | payer OTHER, SELFPAY ==
[2023-02-01 21:21] VITALS: BP 143/83; PULSE 79; RESP 17; O2SAT 97
[2023-02-01 21:39] LABS: Basophils % 0.3 %; Eosinophils # 0.8 10^3/uL (0.0-0.8); Hematocrit 41.8 % (42.0-52.0); Hemoglobin 13.8 g/dL (11.7-16.6); Lymphocytes # 1.7 10^3/uL (0.8-4.8); Lymphocytes % 21.4 %; Mean Corpuscular Hemoglobin 29.6 pg (28.0-34.0); Mean Corpuscular Volume 89.5 fl (80-94); Mean Platelet Volume 10.5 fL (7.4-10.4); Monocytes # 0.9 10^3/uL (0.2-0.9); Monocytes % 11.4 %; Neutrophils # 4.35 10^3/uL (1.8-7.7); Neutrophils % 56.5 %; Nucleated Red Blood Cells % 0 %; Platelet Count 288 10^3/cmm (130-400); Red Blood Count 4.67 10^6/uL (4.1-5.3); Red Cell Distribution Width 12.8 % (12.1-15.1); White Blood Count 7.7 10^3/uL (4.0-10.0)
[2023-02-01 21:56] LABS: Alanine Aminotransferase 15 U/L (0-41); Albumin Level 4.6 g/dL (3.5-5.2); Alkaline Phosphatase 93 U/L (40-130); Anion Gap 15.4 (5-19); Aspartate Amino Transferase 18 U/L (0-40); Blood Urea Nitrogen 46 mg/dL (6-20); Calcium 8.7 mg/dL (8.5-10.5); Carbon Dioxide 27 mmol/L (22-29); Chloride 95 mmol/L (98-107); Globulin 3.3 g/dL (1.3-4.6); Glomerular Filtration Rate 25.8 mL/min (90-130); Glucose 111 mg/dL (65-115); Lipase 136 U/L (13-60); Osmolality Calculated 289 mOsm/kg (285-295); Potassium 4.4 mmol/L (3.5-5.1); Sodium 133 mmol/L (136-145); Total Bilirubin 0.5 mg/dL (0.15-1.2); Total Protein 7.9 g/dL (6.6-8.7)
[2023-02-01 22:00] VITALS: BP 112/73; PULSE 80; RESP 18; O2SAT 96
--- NOTE | 2023-02-01 22:03 | CTR_ITS ---
PROCEDURE INFORMATION: Exam: CT Abdomen And Pelvis Without Contrast Exam date and time: 02/01/2023 10:29 PM Age: 57 years old Clinical indication: Abdominal pain; Patient HX: Epigastric pain with diarrhea. ; Additional info: Abd pain TECHNIQUE: Imaging protocol: Computed tomography of the abdomen and pelvis without contrast. Radiation optimization: All CT scans at this facility use at least one of these dose optimization techniques: automated exposure control; mA and/or kV adjustment per patient size (includes targeted exams where dose is matched to clinical indication); or iterative reconstruction. REPORTING DATA: Count of CT and Cardiac NM exams in prior 12 months: This patient has received 0 known CTs and 0 known cardiac nuclear medicine studies in the 12 months prior to the current study. COMPARISON: CT kidney stone [id number] 03/02/2020 9:02 PM RADIATION DOSE METRICS: Total DLP (mGy-cm): 1240.18 FINDINGS: Liver: Normal. No mass. Gallbladder and bile ducts: Normal. No calcified stones. No ductal dilation. Pancreas: Normal. No ductal dilation. Spleen: Normal. No splenomegaly. Adrenal glands: Normal. No mass. Kidneys and ureters: No renal calcification or hydronephrosis. Stomach and bowel: The stomach is moderately distended with an air-fluid level. No small bowel or colon dilation. Appendix: The appendix is visualized and appears normal. Intraperitoneal space: Unremarkable. No free air. No significant fluid collection. Vasculature: Unremarkable. No abdominal aortic aneurysm. Lymph nodes: Unremarkable. No enlarged lymph nodes. Urinary bladder: Unremarkable as visualized. Reproductive: Unremarkable as visualized. Bones/joints: Degenerative change is identified in the spine. There is no evidence for acute fracture or malalignment. Soft tissues: There are bilateral fat containing inguinal hernias. CT/CT abdomen pelvis wo con [id number] IMPRESSION: There are no acute concerning abnormalities.
--- NOTE | 2023-02-01 22:05 | ED_ITS ---
HPI - Abdominal Pain General: Chief Complaint: Abdominal Pain Stated Complaint: abd pain Time Seen by Provider: 02/01/23 21:51 Source: patient Mode of arrival: ambulatory Limitations: no limitations History of Present Illness: 57-year-old male states over the last 2 weeks been having abdominal pain. S tatjennifer pain is been a burning type pain mainly in his epigastric region. States the pain is currently a 5 out of 10 he was told by his PCP to come appear to get a CT scan. He was seen here last week states had no improvement. He denies any fever he has had some diarrhea. Associated Symptoms: Reports diarrhea; Denies chills, dysuria, fever(s), nausea and vomiting Review of Systems Const: Denies: fever(s), chills, body aches or change in appetite Eyes: Denies: eye discomfort ENMT: Denies: throat pain or dental pain Card: Denies: chest pain Resp: Denies: dyspnea GI: Reports: abdominal pain and diarrhea; Denies: nausea or vomiting : Denies: dysuria Musc: Denies: neck pain or back pain Skin/Breast: Denies: rash Neuro: Denies: headache(s) PFSH ED PFSH: Medical History Anxiety Bilateral bunions Cardiomyopathy Charcot's arthropathy Managed by Dr. Srivastava -Arthropathy involves left lower extremity CHF (congestive heart failure) CKD (chronic kidney disease) Coronary artery disease involving [place] heart without angina pectoris Last coronary angiogram 2017, possible small myocardial bridge mid LAD, luminal irregularities of LAD and circumflex, LVEF 35-40%. Diabetes mellitus Hammer toes of both feet History of atrial flutter -Acute episode in 2017, required cardioversion -Rate controlled, continue to monitor heart rate -Continue beta-maria isabel, anticoagulation with Xarelto Hypertension Non-pressure chronic ulcer of other part of right foot with unspecified severity Onychomycosis Type 2 diabetes mellitus with diabetic chronic kidney disease -hx of NIDDM type II, on metformin -controlled based on A1c-7.2 -Accucheks, ISS, hypoglycemia precautions -consistent carb diet once PO appropriate Surgical History Status post incision and drainage Left foot abscess 2017 Family History Brother CAD (coronary artery disease) Diabetes Hypertension Father Diabetes Hypertension Mother Hypertension Denies family history of Clotting disorder Dementia Hyperlipidemia Psychiatric illness Chronic kidney disease (CKD) Suicide Anesthesia complication Bleeding disorder Family history of premature coronary artery disease Lung disease Cancer Stroke Social History Smoking and tobacco status: former smoker Second hand smoke exposure: No Alcohol intake: former Substance/Drug Use: never Physical Exam Const: COMMON NORMALS: no acute distress, patient oriented x3 and healthy appearing HENMT: COMMON NORMALS: normocephalic and atraumatic HEAD & SCALP: normo cephalic and atraumatic Eye: COMMON NORMALS: conjunctivae normal CONJUNCTIVA: Yes conjunctivae normal Neck/C-Spine: COMMON NORMALS: full ROM and supple Chest: COMMONS NORMALS: normal inspection of the chest and normal palpation of entire chest wall Resp: COMMON NORMALS: normal respiratory effort, No retractions, No use of accessory muscles and clear to auscultation bilaterally AUSCULTATION: clear to auscultation bilaterally Cardio: COMMON NORMALS: regular rate, regular rhythm and No murmurs present (Cardio) RATE: regular rate RHYTHM: regular rhythm GI: COMMON NORMALS: Normal to inspection, nondistended, normoactive bowel sounds present, Soft to palpation, non-tender and no masses PALPATION: Yes Soft to palpation Extremity: COMMON NORMALS: normal to inspection and full ROM Neuro: COMMON NORMALS: patient oriented x3, moves all extremities and no focal motor deficits Psych: COMMON NORMALS: mental status grossly normal, Normal thought process present and cooperative THOUGHT PROCESS: Normal thought process present Skin: COMMON NORMALS: no rashes or lesions noted and no wounds GENERAL SKIN EXAM: no rashes or lesions noted Course Vital Signs: Vital signs: Vital Signs Pulse Rate 79 02/01/23 21:21 Respiratory Rate 17 02/01/23 21:21 Blood Pressure 143/83 02/01/23 21:21 Pulse Oximetry 97 02/01/23 21:21 Oxygen Delivery Me thod Room Air 02/01/23 21:21 MDM - Abdominal Pain Medical Decision Making Patient presents here with abdominal pain is likely gastritis versus reflux a CT here is normal blood works normal we will place him on Protonix his abdominal exam at discharge is benign he is follow-up with PCP and return if worsening he understands agrees to plan. Lab Data 02/01/23 21:02/01/23 21: Labs/Radiology: Radiology Impressions Abdomen/Pelvis CT 02/01/23 22:03 IMPRESSION: There are no acute concerning abnormalities. Laboratory Results WBC 7.7 10^3/uL (4.0-10.0) 02/01/23: RBC 4.67 10^6/uL (4.1-5.3) 02/01/23: Hgb 13.8 g/dL (11.7-16.6) 02/01/23: Hct 41.8 % (42.0-52.0) L 02/01/23: MCV 89.5 fl (80-94) 02/01/23: MCH 29.6 pg (28.0-34.0) 02/01/23: MCHC 33.0 g/dL (30.0-36.0) 02/01/23: RDW 12.8 % (12.1-15.1) 02/01/23: Plt Count 288 10^3/cmm (130-400) 02/01/23: MPV 10.5 fL (7.4-10.4) H 02/01/23: Neut % (Auto) 56.5 % 02/01/23: Lymph % (Auto) 21.4 % 02/01/23: [place] % (Auto) 11.4 % 02/01/23: Eos % (Auto) 10.0 % 02/01/23: Baso % (Auto) 0.3 % 02/01/23: Neut # (Auto) 4.35 10^3/uL (1.8-7.7) 02/01/23: Lymph # (Auto) 1.7 10^3/uL (0.8-4.8) 02/01/23: [place] # (Auto) 0.9 10^3/uL (0.2-0.9) 02/01/23: Eos # (Auto) 0.8 10^3/uL (0.0-0.8) 04/24/23 21:27 Baso # (Auto) 0.0 10^3/uL (0.0-0.1) 02/01/23 21: Nucleated RBC % (auto) 0 % 02/01/23 21: Nucleated RBCs # 0.0 /100WBC 02/01/23 21: Sodium 133 mmol/L (136-145) L 02/01/23 21: Potassium 4.4 mmol/L (3.5-5.1) 02/01/23: Chloride 95 mmol/L (98-107) L 02/01/23 21: Carbon Dioxide 27 mmol/L (22-29) 02/01/23: Anion Gap 15.4 (5-19) 02/01/23: BUN 46 mg/dL (6-20) H 02/01/23 21: Creatinine 2.6 mg/dL (0.7-1.2) H 02/01/23: GFR Calculation 25.8 mL/min (90-130) L 02/01/23: Glucose 111 mg/dL (65-115) 02/01/23: Calculated Osmolality 289 mOsm/kg (285-295) 02/01/23: Calcium 8.7 mg/dL (8.5-10.5) 02/01/23: Total Bilirubin 0.5 mg/dL (0.15-1.2) 02/01/23: AST 18 U/L (0-40) 02/01/23: ALT 15 U/L (0-41) 02/01/23: Alkaline Phosphatase 93 U/L (40-130) 02/01/23 21: Total Protein 7.9 g/dL (6.6-8.7) 02/01/23: Albumin 4.6 g/dL (3.5-5.2) 02/01/23: Globulin 3.3 g/dL (1.3-4.6) 02/01/23 21: Lipase 136 U/L (13-60) H 02/01/23 21: Urine Color Yellow (Yellow) 02/01/23 22: Urine Appearance Clear (CLEAR) 02/01/23 22: Urine pH 5 (5-7) 02/01/23 22:26 Ur Specific [place] 1.025 (1.005-1.030) 02/01/23 22:26 Urine Protein 1+ (Negative) H 02/01/23 22:26 Urine Glucose (UA) Norm (Normal) 02/01/23 22:26 Urine Ketones Negative (Negative) 02/01/23 22:26 Urine Blood 2+ (Negative) H 02/01/23 22:26 Urine Nitrate Negative (Negative) 02/01/23 22:26 Urine Bilirubin Neg (Negative) 02/01/23 22:26 Urine Urobilinogen Norm mg/dL (Negative) 02/01/23 22:26 Ur Leukocyte Esterase Negative (Negative) 02/01/23 22:26 Urine RBC 0-4 /hpf (0-2) H 02/01/23 22:26 Urine WBC None /hpf (0-5) 02/01/23 22:26 Ur Squamous Epith Cells None /hpf (0-5) 02/01/23 22:26 Calcium Oxalate Crystal Rare /hpf 02/01/23 22:26 Amorphous Sediment Trace /hpf 02/01/23 22:26 Urine Bacteria Trace /hpf (NONE) 02/01/23 22:26 Hyaline Casts 0-4 /lpf H 02/01/23 22:26 Discharge Plan Discharge Patient Disposition: Home Clinical Impression: Abdominal pain Condition: Stable Prescriptions: New Protonix 40 mg tablet,delayed release (DR/EC) 40 mg PO DAILY Qty: 60 0RF ondansetron 4 mg tablet,disintegrating 4 mg PO Q6H PRN (Reason: nausea and vomiting) Qty: 14 0RF No Action (DME) diabetic supplies, miscellan. Misc See Rx Instructions .ROUTE .MEDSUPPLY Qty: 1 0RF Rx Instructions: Pair of Diabetic Shoes acetaminophen-codeine 300-30 mg tablet 1 tab PO TID PRN (DME) [place] boot See Rx Instructions .Route .MEDSUPPLY Qty: 1 0RF Rx Instructions: As directed by [employer] (DME) Diabetic Shoes See Rx Instructions .Route .MEDSUPPLY Qty: 1 0RF Rx Instructions: As directed mupirocin 2 % ointment 1 applic topical BID 14 Days Qty: 22 2RF albuterol sulfate [ProAir HFA] 90 mcg/actuation HFA aerosol inhaler 2 puff inhalation 6XD PRN (Reason: shortness of breath or wheezing) Qty: 8.5 0RF fluocinolone [[place]oothe/FS Body Oil] 0.01 % oil 1 applic topical .biweekly 30 Days Qty: 118.28 1RF Rx Instructions: apply to scalp, set overnight then shower, 2 x weekly PRN losartan 100 mg tablet 100 mg PO DAILY Qty: 90 4RF potassium chloride 10 mEq capsule, extended release 10 meq PO QDAY Qty: 90 4RF metoprolol tartrate 100 mg tablet 100 mg PO BID Qty: 180 4RF furosemide 40 mg tablet See Rx Instructions .ROUTE .COMPLEX Qty: 90 0RF Dose Instruction: TAKE 1 TABLET BY MOUTH DAILY Rx Instructions: TAKE 1 TABLET BY MOUTH DAILY Xarelto 20 mg tablet 20 mg PO QDAY Qty: 90 4RF buspirone 30 mg tablet See Rx Instructions .ROUTE .COMPLEX Qty: 180 0RF Dose Instruction: TAKE 1 TABLET BY MOUTH EVERY 12 HOURS Rx Instructions: TAKE 1 TABLET BY MOUTH EVERY 12 HOURS gemfibrozil 600 mg tablet See Rx Instructions .ROUTE .COMPLEX Qty: 180 0RF Dose Instruction: TAKE 1 TABLET BY MOUTH TWICE DAILY Rx Instructions: TAKE 1 TABLET BY MOUTH TWICE DAILY (DME) OneTouch Ultra Test Strip See Rx Instructions .ROUTE .COMPLEX Qty: 100 0RF Dose Instruction: USE 1 STRIP TO TEST BLOOD SUGAR TWICE DAILY DIRECTED Rx Instructions: USE 1 STRIP TO TEST BLOOD SUGAR TWICE DAILY DIRECTED fluticasone propionate 50 mcg/actuation spray,suspension See Rx Instructions .ROUTE .COMPLEX Qty: 16 0RF Dose Instruction: SHAKE LIQUID AND USE 1 SPRAY IN EACH NOSTRIL DAILY NEEDED FOR ALLERGIC RHINITIS Rx Instructions: SHAKE LIQUID AND USE 1 SPRAY IN EACH NOSTRIL DAILY NEEDED FOR ALLERGIC RHINITIS gabapentin 300 mg capsule See Rx Instructions .ROUTE .COMPLEX Qty: 120 0RF Dose Instruction: TAKE 2 CAPSULES BY MOUTH TWICE DAILY Rx Instructions: TAKE 2 CAPSULES BY MOUTH TWICE DAILY Mounjaro 5 mg/0.5 mL pen injector See Rx Instructions .ROUTE .COMPLEX Qty: 4 0RF Dose Instruction: INJECT 5 MG (0.5 ML) SUBCUTANEOUSLY ONCE WEEKLY Rx Instructions: INJECT 5 MG (0.5 ML) SUBCUTANEOUSLY ONCE WEEKLY ondansetron HCl 4 mg tablet 4 mg PO Q8H PRN (Reason: nausea and vomiting) Qty: 14 0RF Discharge Orders: Discharge ED (Routine); Ordered 02/01/23 Ordered By: Lolis Ochoa Referrals: Sergio Godfrey FNP [Primary Care Provider] - 1-3 days Discharge Diet: Advance as tolerated Discharge Activity: Resume usual activity Patient Instructions: Abdominal Pain (ED) Coding Level of Care Code ED Triage Nurse for Elizabeth Díaz
[2023-02-01] MEDS: lidocaine 2% viscous 15 ML, aluminum-mag hydrox-simethicon 30 ML, sucralfate oral liq 1 GM PO (22:20)
[2023-02-01] MEDS: ondansetron 2 mg/ML SDV 2 mL 4 MG IVP (22:21)
[2023-02-01] MEDS: diphenoxylate/atropine Tablet 1 TAB PO ×2 (22:22→23:51)
[2023-02-01 22:45] LABS: Add Urine Microscopic? YES; Bilirubin Urine Neg (Negative); Blood Urine 2+ (Negative); Glucose Urine UA Norm (Normal); Ketones Urine Negative (Negative); Leukocyte Esterase Urine Negative (Negative); Nitrate Urine Negative (Negative); Protein Urine 1+ (Negative); Specific Gravity, Urine 1.025 (1.005-1.030); Urine Appearance Clear (CLEAR); Urine Color Yellow (Yellow); Urobilinogen Urine Norm (Negative); pH Urine 5 (5-7)
[2023-02-01 22:46] VITALS: BP 117/78; PULSE 84
[2023-02-01 22:46] LABS: Add Urine Culture? No; Amorphous Sediment Urine TRACE /hpf; Bacteria Urine TRACE /hpf; Calcium Oxalate Crystals Urine RARE /hpf; Hyaline Casts Urine 0-4 /lpf; RBC Urine 0-4 /hpf (0-2)
[2023-02-01 23:00] VITALS: BP 102/78; PULSE 85; O2SAT 93
[2023-02-01 23:15] VITALS: BP 106/70; PULSE 86; RESP 20; O2SAT 92
== END 2023-02-02 00:24 | disposition home or self-care (01) ==
PROVIDERS: Emergency Provider Emergency Medicine; PCP Registered Nurse
DX: R10.13 Epigastric pain (principal); Z87.891 Personal history of nicotine dependence; E11.22 Type 2 diabetes mellitus with diabetic chronic kidney disease; I13.0 Hypertensive heart and chronic kidney disease with heart failure and stage 1 through stage 4 chronic kidney disease, or unspecified chronic kidney disease; N18.9 Chronic kidney disease, unspecified; I50.9 Heart failure, unspecified; I25.10 Atherosclerotic heart disease of native coronary artery without angina pectoris
CPT/HCPCS: 36415; 74176; 80053; 81001; 83690; 85025; 96374; 99285; J2405

== ENCOUNTER → 2023-04-08 10:38 | Outpatient (BNVA) | payer OTHER, SELFPAY | PROVIDERS: PCP Registered Nurse; Visit Provider Internal Medicine | DX: N18.30 Chronic kidney disease, stage 3 unspecified (principal) | CPT/HCPCS: 80069; 82570; 84156 ==

== ENCOUNTER 2023-04-20 10:47 | Outpatient (CLI) | payer OTHER, SELFPAY | END 2023-04-20 10:48 | disposition home or self-care (01) | LOC: SPT 10:49 | PROVIDERS: PCP Registered Nurse; Visit Provider Podiatrist Foot & Ankle Surgery | DX: Z46.89 Encounter for fitting and adjustment of other specified devices (principal); M21.611 Bunion of right foot; M21.612 Bunion of left foot | CPT/HCPCS: 97760; L3100 ==

== ENCOUNTER 2023-08-15 15:36 | Emergency (ER) | payer OTHER, SELFPAY ==
[2023-08-15 15:52] VITALS: BP 170/86; PULSE 71; RESP 16; TEMP 36.8; O2SAT 99
[2023-08-15 17:06] LABS: Basophils % 0.1 %; Eosinophils # 0.1 10^3/uL (0.0-0.8); Hematocrit 47.1 % (37-53); Lymphocytes # 0.5 10^3/uL (0.8-4.8); Lymphocytes % 6.9 %; Mean Corpuscular HGB Conc 32.7 g/dL (30-55); Mean Corpuscular Volume 88.7 fl (82-101); Mean Platelet Volume 10.8 fL (7.4-10.4); Monocytes # 0.5 10^3/uL (0.2-0.9); Monocytes % 7.5 %; Neutrophils % 83.2 %; Nucleated Red Blood Cells % 0 %; Platelet Count 211 10^3/cmm (157-399); Red Blood Count 5.31 10^6/uL (3.85-5.65); Red Cell Distribution Width 13.2 % (12.1-15.1); White Blood Count 7.09 10^3/uL (3.29-11.43)
[2023-08-15] MEDS: sodium chloride 0.9% 1,000 ML 999 ML IV (17:09)
[2023-08-15] MEDS: ondansetron 2 mg/ML SDV 2 mL 4 MG IVP (17:10)
--- NOTE | 2023-08-15 17:10 | ED_ITS ---
HPI - Nausea/Vomiting/Diarrhea General: Chief complaint: Nausea/Vomiting/Diarrhea Stated complaint: Diarrhea Time Seen by Provider: 08/15/23 16:32 History of Present Illness: Patient presents to the ER with complaints of diarrhea since around 10:00 last night and vomiting x1 this morning. Patient states he had multiple episodes of diarrhea all throughout the day and is unable to tolerate any solid food but cannot keep liquid down. Patient states he has no history of stomach or GI problems and has been around no one that has been had similar symptoms., No recent changes in medicine Review of Systems General: Reports: 10 or more systems reviewed and unremarkable except in HPI and below PFSH ED PFSH: Medical History Anxiety Bilateral bunions Cardiomyopathy Charcot's arthropathy Managed by Dr. Srivastava -Arthropathy involves left lower extremity CHF (congestive heart failure) CKD (chronic kidney disease) Coronary artery disease involving [place] heart without angina pectoris Last coronary angiogram 2017, possible small myocardial bridge mid LAD, luminal irregularities of LAD and circumflex, LVEF 35-40%. Diabetes mellitus Hammer toes of both feet History of atrial flutter -Acute episode in 2017, required cardioversion -Rate controlled, continue to monitor heart rate -Continue beta-maria isabel, anticoagulation with Xarelto Hypertension Non-pressure chronic ulcer of other part of right foot with unspecified severity Onychomycosis Type 2 diabetes mellitus with diabetic chronic kidney disease -hx of NIDDM type II, on metformin -controlled based on A1c-7.2 -Accucheks, ISS, hypoglycemia precautions -consistent carb diet once PO appropriate Surgical History Status post incision and drainage Left foot abscess 2017 Family History Brother CAD (coronary artery disease) Diabetes Hypertension Father Diabetes Hypertension Mother Hypertension Denies family history of Clotting disorder Dementia Hyperlipidemia Psychiatric illness Chronic kidney disease (CKD) Suicide Anesthesia complication Bleeding disorder Family history of premature coronary artery disease Lung disease Cancer Stroke Social History Smoking and tobacco/nicotine status: former use of tobacco/nicotine Second hand smoke exposure: No Alcohol intake: former Substance/Drug Use: never Physical Exam Const: COMMON NORMALS: no acute distress, average body habitus, patient oriented x3, no limitations, healthy appearing, alert and well nourished HENMT: COMMON NORMALS: normocephalic, atraumatic, hearing grossly normal bilaterally, external ears normal, Normal external nose present, moist oral mucous membranes and oropharynx normal HEAD & SCALP: normocephalic and at raumatic NOSE: Normal external nose present EXTERNAL EAR: Yes external ears normal Neck/C-Spine: COMMON NORMALS: full ROM, no lymphadenopathy, supple, no meningeal signs, no JVD and Thyroid normal THYROID: Thyroid normal Chest: COMMONS NORMALS: normal inspection of the chest and normal palpation of entire chest wall Resp: COMMON NORMALS: normal respiratory effort, No retractions, No use of accessory muscles and clear to auscultation bilaterally AUSCULTATION: clear to auscultation bilaterally Cardio: COMMON NORMALS: no JVD, regular rate, regular rhythm, S1 normal heart sound present, S2 normal heart sound present, No gallops present (Cardio), No clicks present (Cardio), No murmurs present (Cardio) and No rub (Cardio) RATE: regular rate RHYTHM: regular rhythm HEART SOUNDS: S1 normal heart sound present and S2 normal heart sound present GI: COMMON NORMALS: Normal to inspection, nondistended, normoactive bowel sounds present, Soft to palpation, non-tender, No hepatosplenomegaly present and no masses PALPATION: Yes Soft to palpation and Yes No hepatosplenomegaly present Neuro: COMMON NORMALS: patient oriented x3 SENSORIUM/ORIENTATION: Yes alert MENINGEAL SIGNS: Yes no meningeal signs Course Vital Signs: Vital signs: Vital Signs Temperature 98.3 F 08/15/23 15:52 Pulse Rate 71 08/15/23 15:52 Respiratory Rate 16 08/15/23 15:52 Blood Pressure 152/92 08/15/23 18:00 Pulse Oximetry 98 08/15/23 18:00 Oxygen Delivery Me thod Room Air 08/15/23 18:00 MDM - Nausea/Vomiting/Diarrhea Medical Decision Making Presents to the ER with complaints of nausea vomiting and diarrhea. Patient's lab work showed patient was little dehydrated with a BUN/creatinine at 36 and 1.7 however patient does have some chronic renal insufficiency. Patient was given 1 L bolus normal saline and while doing that patient produce good urine. Patient will be given Lomotil and a GI cocktail for his stomach burning. Patient be discharged home to follow-up with his PCP on an as-needed basis. Differential Diagnosis Likely gastroenteritis; Unlikely traveler's diarrhea, food poisoning, clostridium difficile infection, drug-induced nausea and vomiting or dehydration Medical Records I reviewed the patient's medical records. Lab Data I reviewed the patient's lab results. 08/15/23 16:53 08/15/23 16:53 Laboratory Results WBC 7.09 10^3/uL (3.29-11.43) 08/15/23 16:53 RBC 5.31 10^6/uL (3.85-5.65) 08/15/23 16:53 Hgb 15.40 g/dL (11.27-16.99) 08/15/23 16:53 Hct 47.1 % (37-53) 08/15/23 16:53 MCV 88.7 fl (82-101) 08/15/23 16:53 MCH 29.0 pg (27-33) 08/15/23 16:53 MCHC 32.7 g/dL (30-55) 08/15/23 16:53 RDW 13.2 % (12.1-15.1) 08/15/23 16:53 Plt Count 211 10^3/cmm (157-399) 08/15/23 16:53 MPV 10.8 fL (7.4-10.4) H 08/15/23 16:53 Neut % (Auto) 83.2 % 08/15/23 16:53 Lymph % (Auto) 6.9 % 08/15/23 16:53 [place] % (Auto) 7.5 % 08/15/23 16:53 Eos % (Auto) 2.0 % 08/15/23 16:53 Baso % (Auto) 0.1 % 08/15/23 16:53 Neut # (Auto) 5.90 10^3/uL (1.8-7.7) 08/15/23 16:53 Lymph # (Auto) 0.5 10^3/uL (0.8-4.8) L 08/15/23 16:53 [place] # (Auto) 0.5 10^3/uL (0.2-0.9) 08/15/23 16:53 Eos # (Auto) 0.1 10^3/uL (0.0-0.8) 08/15/23 16:53 Baso # (Auto) 0.0 10^3/uL (0.0-0.1) 08/15/23 16:53 Nucleated RBC % (auto) 0 % 08/15/23 16:53 Nucleated RBCs # 0.0 /100WBC 08/15/23 16:53 Sodium 137 mmol/L (136-145) 08/15/23 16:53 Potassium 4.5 mmol/L (3.5-5.1) 08/15/23 16:53 Chloride 104 mmol/L (98-107) 08/15/23 16:53 Carbon Dioxide 23 mmol/L (22-29) 08/15/23 16:53 Anion Gap 14.5 (5-19) 08/15/23 16:53 BUN 36 mg/dL (6-20) H 08/15/23 16:53 Creatinine 1.7 mg/dL (0.7-1.2) H 08/15/23 16:53 GFR Calculation 41.9 mL/min (90-130) L 08/15/23 16:53 Glucose 118 mg/dL (65-115) H 08/15/23 16:53 Calculated Osmolality 293 mOsm/kg (285-295) 08/15/23 16:53 Calcium 9.0 mg/dL (8.5-10.5) 08/15/23 16:53 Magnesium 2.2 mg/dL (1.7-2.3) 08/15/23 16:53 Total Bilirubin 0.7 mg/dL (0.15-1.2) 08/15/23 16:53 AST 22 U/L (0-40) 08/15/23 16:53 ALT 19 U/L (0-41) 08/15/23 16:53 Alkaline Phosphatase 73 U/L (40-130) 08/15/23 16:53 Total Protein 7.0 g/dL (6.6-8.7) 08/15/23 16:53 Albumin 4.3 g/dL (3.5-5.2) 08/15/23 16:53 Globulin 2.7 g/dL (1.3-4.6) 08/15/23 16:53 Lipase 52 U/L (13-60) 08/15/23 16:53 No radiology studies performed this visit Discharge Plan Discharge Patient Disposition: Home Clinical Impression: Gastroenteritis Chronic kidney insufficiency Qualifiers: Chronic kidney disease stage: unspecified stage Qualified Code(s): N18.9 - Chronic kidney disease, unspecified Condition: Stable Prescriptions: No Action ([facility]) diabetic supplies, miscellan. [facility] See Rx Instructions .ROUTE .MEDSUPPLY Qty: 1 0RF Rx Instructions: Pair of Diabetic Shoes acetaminophen-codeine 300-30 mg tablet 1 tab PO TID PRN ([facility]) [place] boot See Rx Instructions .Route .MEDSUPPLY Qty: 1 0RF Rx Instructions: As directed by [employer] ([facility]) Diabetic Shoes See Rx Instructions .Route .MEDSUPPLY Qty: 1 0RF Rx Instructions: As directed ([facility]) [place] Toe Splint See Rx Instructions .Route .MEDSUPPLY Qty: 1 0RF Rx Instructions: As directed doxycycline hyclate 100 mg capsule 100 mg PO BID 7 Days Qty: 14 0RF Jardiance 25 mg tablet 25 mg PO DAILY losartan 100 mg tablet 100 mg PO DAILY Qty: 90 4RF potassium chloride 10 mEq capsule, extended release 10 meq PO QDAY Qty: 90 4RF metoprolol tartrate 100 mg tablet 100 mg PO BID Qty: 180 4RF Xarelto 20 mg tablet 20 mg PO QDAY Qty: 90 4RF gemfibrozil 600 mg tablet See Rx Instructions .ROUTE .COMPLEX Qty: 180 0RF Dose Instruction: TAKE 1 TABLET BY MOUTH TWICE DAILY Rx Instructions: TAKE 1 TABLET BY MOUTH TWICE DAILY buspirone 30 mg tablet See Rx Instructions .ROUTE .COMPLEX Qty: 180 0RF Dose Instruction: TAKE 1 TABLET BY MOUTH EVERY 12 HOURS Rx Instructions: TAKE 1 TABLET BY MOUTH EVERY 12 HOURS ([facility]) blood-glucose meter [OneTouch Verio Reflect Meter] [facility] See Rx Instructions .Route Qty: 1 0RF Rx Instructions: As directed ([facility]) OneTouch Verio test strips Strip See Rx Instructions .ROUTE .MEDSUPPLY Qty: 100 11RF Rx Instructions: use one strip to test blood sugar daily fluticasone propionate 50 mcg/actuation spray,suspension See Rx Instructions .ROUTE .COMPLEX Qty: 16 0RF Dose Instruction: SHAKE LIQUID AND USE 1 SPRAY IN EACH NOSTRIL DAILY NEEDED FOR ALLERGIC RHINITIS Rx Instructions: SHAKE LIQUID AND USE 1 SPRAY IN EACH NOSTRIL DAILY NEEDED FOR ALLERGIC RHINITIS gabapentin 300 mg capsule See Rx Instructions .ROUTE .COMPLEX Qty: 120 0RF Dose Instruction: TAKE 2 CAPSULES BY MOUTH TWICE DAILY Rx Instructions: TAKE 2 CAPSULES BY MOUTH TWICE DAILY Discharge Orders: Discharge ED (Routine); Ordered 08/15/23 Ordered By: Valentín Mcneal Referrals: Sergio Godfrey FNP [Primary Care Provider] - 1 week Patient Instructions: Gastroenteritis (ED) Activity Restrictions/Additional Instructions: Please drink plenty of fluids. Please use [id number] Imodium as directed as needed for control of diarrhea. Please follow-up with your family practice physician within the next 7 to 10 days or sooner as needed for further evaluation and treatment. Coding Level of Care Code ED Linoleum Tile Floor Layer for Elizabeth Díaz
[2023-08-15 17:17] LABS: Alanine Aminotransferase 19 U/L (0-41); Albumin Level 4.3 g/dL (3.5-5.2); Alkaline Phosphatase 73 U/L (40-130); Anion Gap 14.5 (5-19); Aspartate Amino Transferase 22 U/L (0-40); Blood Urea Nitrogen 36 mg/dL (6-20); Carbon Dioxide 23 mmol/L (22-29); Chloride 104 mmol/L (98-107); Globulin 2.7 g/dL (1.3-4.6); Glomerular Filtration Rate 41.9 mL/min (90-130); Glucose 118 mg/dL (65-115); Lipase 52 U/L (13-60); Magnesium 2.2 mg/dL (1.7-2.3); Osmolality Calculated 293 mOsm/kg (285-295); Potassium 4.5 mmol/L (3.5-5.1); Sodium 137 mmol/L (136-145); Total Bilirubin 0.7 mg/dL (0.15-1.2)
[2023-08-15 18:00] VITALS: BP 152/92; O2SAT 98
[2023-08-15] MEDS: lidocaine 2% viscous 15 ML, aluminum-mag hydrox-simethicon 30 ML, sucralfate oral liq 1 GM PO (19:11)
[2023-08-15] MEDS: diphenoxylate/atropine Tablet 2 TAB PO (19:11)
[2023-08-15 19:27] VITALS: BP 152/92; O2SAT 98
== END 2023-08-15 19:28 | disposition home or self-care (01) ==
PROVIDERS: Emergency Provider Emergency Medicine; PCP Registered Nurse
DX: K52.9 Noninfective gastroenteritis and colitis, unspecified (principal); E11.22 Type 2 diabetes mellitus with diabetic chronic kidney disease; I13.0 Hypertensive heart and chronic kidney disease with heart failure and stage 1 through stage 4 chronic kidney disease, or unspecified chronic kidney disease; N18.9 Chronic kidney disease, unspecified; I50.9 Heart failure, unspecified; I25.10 Atherosclerotic heart disease of native coronary artery without angina pectoris; Z87.891 Personal history of nicotine dependence
CPT/HCPCS: 80053; 83690; 83735; 85025; 96361; 96374; 99284; J2405; J7030

== ENCOUNTER → 2023-10-18 08:50 | Outpatient (BNVA) | payer OTHER, SELFPAY | PROVIDERS: PCP Registered Nurse; Visit Provider Registered Nurse | DX: E11.9 Type 2 diabetes mellitus without complications (principal) | CPT/HCPCS: 80053; 80061; 83036; 85025 ==

== ENCOUNTER → 2024-04-17 08:48 | Outpatient (BNVA) | payer OTHER, SELFPAY | PROVIDERS: PCP Registered Nurse; Visit Provider Registered Nurse | DX: E11.9 Type 2 diabetes mellitus without complications (principal); E53.8 Deficiency of other specified B group vitamins; E78.5 Hyperlipidemia, unspecified | CPT/HCPCS: 80053; 80061; 82607; 83036 ==

== ENCOUNTER 2024-05-11 05:53 | Outpatient (CLI) | payer OTHER, SELFPAY ==
--- NOTE | 2024-05-11 06:15 | US_ITS ---
WS: [id number] RIGHT UPPER QUADRANT ULTRASOUND HISTORY: bloating COMPARISON: 03/02/2020, 02/01/2023 Liver: 13.7 cm in length. Normal size liver. Hepatic steatosis. No mass identified. The entire liver is not well visualized due to body habitus. Portal Vein: Normal hepatopetal flow with monophasic waveform. Gallbladder: Normally distended gallbladder with cholelithiasis. Numerous small stones are present wi thin the gallbladder. No pericholecystic fluid. No Bright sign. CBD: 0.5 cm Pancreas: Not visualized. Right kidney: 13.9 cm in length. Normal size and echogenicity. No hydronephrosis or mass. Aorta and IVC: Unremarkable abdominal aorta and IVC. No ascites. US/US gall bladder [id number] IMPRESSION: 1. Cholelithiasis without acute cholecystitis. 2. Hepatic steatosis. 3. No renal obstruction.
== END 2024-05-11 05:54 | disposition home or self-care (01) ==
LOC: RAD 05:53
PROVIDERS: PCP Registered Nurse; Visit Provider Surgery
DX: R14.0 Abdominal distension (gaseous) (principal); K80.20 Calculus of gallbladder without cholecystitis without obstruction; K76.0 Fatty (change of) liver, not elsewhere classified
CPT/HCPCS: 76705

== ENCOUNTER 2024-05-24 07:53 | Day surgery (SDC) | payer OTHER, SELFPAY ==
--- OUTSIDE RECORDS SUMMARY | 2024-05-24 07:56 | XMS_ITS ---
Author Name Unknown Organization [facility] Address [address] [place], [place] [id number] Care Team Providers Care Quality Assurance Tester Name Role Phone Sergio Mcintyre Primary Care Provider Unav ailable Ziggy SPENCER, Pernell Unavailable [phone] Nanci Javier Unavailable Unavailabl Pau Matthews Unavailable [phone] ALLERGIES Allergen (clinical drug ingredient) Drug/Non Drug Allergy documented on EMR Reaction Allergy Type Onset Date Status tirzepatide Mounjaro diarrhea Drug Allergy Activ e REASON FOR VISIT Patient states he is here today for my medicine {low back pain} MEDICATIONS Medication SIG (Take, Route, Frequency, Duration) Notes Start Date End Date Status Acetaminophen-Hydrocodo ne Bitartrate 325 mg-5 mg 1 tab orally Q4H prn pain (max 4/day; hold within 4H of planned sleep) for 28 days 12/23/2023 Active albuterol 90 mcg/inh 2 puffs inhaled jojo ry 6 hours 11/14/2020 Active amLODIPine 10 mg 1 tab(s) orally once a day Active busPIRone 30 mg 1 tab orally 2 times a day Active chlorthalidone 25 mg 1 tab(s) orally onc e a day for 30 day(s) Active meloxicam 15 mg 1 tab po orally Q24H prn pain; take with food Active Metoprolol Tartrate 100 mg 1 tab orally 2 times a day Active Xarelto 20 mg 1 tab orally once a day Active Mucinex 600 mg 1 tab(s) orally ever y 12 hours 10/28/2023 Active mupirocin topical 2% 1 yany applied topically 3 times a day for 5 day(s) Active hydrochlorothiazide-los clara 25 mg-100 mg 1/2 tab orally 2 times a day Active Jardiance 25 mg 1 tab(s) orally once a day (in the morning) 05/04/2023 Active acetaminophen-hydrocodo ne 325 mg-5 mg 1 tab orally Q4H prn pain (max 4/day; hold within 4H of planned sleep) for 28 days Do not fill prior to 05/19/24. ICD-10: G89.29 04/20/2024 Active gabapentin 300 mg 1 cap po orally QID Active gemfibrozil 600 mg 1 tab orally 2 times a day Active acetaminophen-hydrocodo ne 325 mg-5 mg 1 tab orally Q4H prn pain (max 4/day; hold within 4H of planned sleep) for 28 days Do not fill prior to 04/21/24. ICD-10: G89.29 04/20/2024 Active fluticasone nasal 50 mcg/inh 1 spray intranasally once a day Active SOCIAL HISTORY Tobacco Use: Social History Observation Description Date Details (start date - stop date) Former Smoker NA - NA Sex Assigned At : Social History Observation Description Sex Assigned At Unknown alcohol Question Answer Notes Did you have a drink containing alcohol in the p ast year? No Points 0 Interpretation Negative Tobacco use: Question Answer Notes Additional Findings: Tobacco User Chews tobacco 1/4 can per day : former smoker When did you stop smoking? 1988 VITAL SIGNS Temperature 97.8 degrees Fahrenheit 04/20/20 24 Blood pressure systolic 153 mm Hg 04/20/20 24 Blood pressure diastolic 93 mm Hg 024 Height 72 in 04/20/2024 Weight 289.8 lbs 04/20/2024 Oximetry 98 % 04/20/2024 BMI 39.30 kg/m2 04/20/2024 Encounters Encounter Location Date Provider Diagnosis [facility] [address] [place], [place] [id number] 04/20/2024 Pau Jiménezs Vertebrogenic low ba ck pain M54.51 ; Other chronic pain G89.29 and Other sleep disorders G47.8 ASSESSMENTS Encounter Date Diagnosis Assessment Notes Treatment Notes Treatment Clinical Notes 04/20/2024 Vertebrogenic low back pain (ICD-10 - M54.51) Chronic lumbar spine pain. 04/20/2024 Other chronic pain (ICD-10 - G89.29) Patient reports that taking his pain medication allows him to continue working. Plan to continue oral opioid medication management. 04/20/2024 Other sleep disorders (ICD-10 - G47.8) Plan to continue to restrict opioid use in relation to sleep. 04/20/2024 Other PLAN OF TREATMENT Medication Medication Name Sig Start Date Stop Date Notes acetaminophen-hydrocodon e 325 mg-5 mg 1 tab orally Q4H prn pain (max 4/day; hold within 4H of planned sleep) for 28 days 04/20/2024 Do not fill prior to 05/19/24. ICD-10: G89.29 acetaminophen-hydrocodon e 325 mg-5 mg 1 tab orally Q4H prn pain (max 4/day; hold within 4H of planned sleep) for 28 days 04/20/2024 Do not fill prior to 04/21/24. ICD-10: G89.29 Treatment Notes Assessment Notes Vertebrogenic low back pain Chronic lumb ar spine pain. Other chronic pain Patient reports that taking his pain medication allows him to continue working. Plan to continue oral opioid medication management. Other sleep disorders Plan to continue t o restrict opioid use in relation to sleep. Next Appt Details Follow Up: 2 month Rx visit. , Reason: Provider Name:Pernell Jimenez son, 06/15/2024 09:20:00 AM, [address], [place], [place], [id number], History and Physical Notes * HPI (History of Present Illness) Category Sub-Category Detail Notes Lumbar Spine injury: tingling/numbness in the BLE up to the mid-holcomb; patient has related these symptoms to his diabetes pain in the bilateral low er back. This pain is described as constant aching with stiffness. 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 This pain is somewhat alleviated with use of a heating pad, a massage pillow, and by sitting in her recliner radiation of pain previous surgery: weakness Medications [place] (hydrocodone / acetaminoph en) 325 mg-5 mg, 1 tab, orally, Q4H prn pain (max 4/day; hold within 4H of planned sleep), 28 days, 112, Refills 0. Notes: Prescriptions given (2) on 02/17/24. Patient reports good benefit, as evidenced by improved ability to work, grocery shop and attend congregation, with quantity 16 and 0 prescription(s) remaining. Last fill date: 03/24/24 Xarelto (rivaroxaban) is managed per Dr. Flash Olivares; will address / send request for anticoagulation cessation recommendations as the need arises Previous Therapy Previous therapy: heat therapy with some quuc9oun; massage therapy with some benefit; topical agent therapy with some benefit; remote chiropractic therapy with history of benefit (2008); home exercises with history of no benefit (2018) Medication history: Mobic 15 mg; Neuront in 300 mg; ibuprofen; OTC Witch Tracey topical applications; Tylenol #3 Previous Imaging/Studies MRI of the L-spine on 01/30/19 X-rays of the L-spine on ; of the left foot on 01/09/19, 02/01/17 and 10/13/16 Ultrasound of the left lower ex tremity on 10/13/16 NM Bone Scan on 02/09/17 Physical Examination Category Sub-Category Detail Notes ENT Hearing: grossly intact Chest Shape and expansion: normal expa nsion, equal bilaterally, respirations even and unlabored Neurological Psychiatric: alert and conver korey Musculoskeletal Lower extremity: Gait: broad-based Outcome Assessment: Findings:: Negative, care pl an not required Dermatology Skin inspection: pink, warm, dry , and intact General General appearence: well groomed , well nourished Build: moderately obese Head: normocephalic Eyes Conjunctiva: without injectio n
--- OUTSIDE RECORDS SUMMARY | 2024-05-24 07:56 | XMS_ITS ---
Author Name Unknown Organization [facility] Address [address] [place], [place] [id number] Care Team Providers Care Mechanic Welder Name Role Phone Sergio Mcintyre Primary Care Provider Unav ailable Ziggy SPENCER, Pernell Unavailable [phone] Kerri KAMARA, Nanci Obregon Unavailable Unavailabl bettina KAMARA, Pau Unavailable [phone] ALLERGIES Allergen (clinical drug ingredient) Drug/Non Drug Allergy documented on EMR Reaction Allergy Type Onset Date Status tirzepatide Mounjaro diarrhea Drug Allergy Activ e REASON FOR VISIT Patient states he is here today for just my medicine {low back pain} MEDICATIONS Medication SIG (Take, Route, Frequency, Duration) Notes Start Date End Date Status fluticasone nasal 50 mcg/inh 1 spray intranasally once a day Active gabapentin 300 mg 1 cap po orally QID Active acetaminophen-hydroco done 325 mg-5 mg 1 tab orally Q4H prn pain (max 4/day; hold within 4H of planned sleep) for 28 days Do not fill prior to 02/24/24. ICD-10: G89.29 02/17/2024 Active gemfibrozil 600 mg 1 tab orally 2 times a day Active acetaminophen-hydroco done 325 mg-5 mg 1 tab orally Q4H prn pain (max 4/day; hold within 4H of planned sleep) for 28 days Do not fill prior to 03/23/24. ICD-10: G89.29 02/17/2024 Active Acetaminophen-Hydroco done Bitartrate 325 mg-5 mg 1 tab orally Q4H prn pain (max 4/day; hold within 4H of planned sleep) for 28 days 12/23/2023 Active albuterol 90 mcg/inh 2 puffs inhaled jojo ry 6 hours 11/14/2020 Active amLODIPine 10 mg 1 tab(s) orally once a day Active Xarelto 20 mg 1 tab orally once a day Active busPIRone 30 mg 1 tab orally 2 times a day Active Mucinex 600 mg 1 tab(s) orally ever y 12 hours 10/28/2023 Active mupirocin topical 2% 1 yany applied topically 3 times a day for 5 day(s) Active Metoprolol Tartrate 100 mg 1 tab orally 2 times a day Active Jardiance 25 mg 1 tab(s) orally once a day (in the morning) 05/04/2023 Active meloxicam 15 mg 1 tab po orally Q24H prn pain; take with food Active hydrochlorothiazide-l osartan 25 mg-100 mg 1/2 tab orally 2 times a day Active SOCIAL HISTORY Tobacco Use: [...] you stop smoking? 1988 VITAL SIGNS Temperature 97.9 degrees Fahrenheit 02/17/20 24 Blood pressure systolic 171 mm Hg 02/17/20 24 Blood pressure diastolic 97 mm Hg 024 Height 72 in 02/17/2024 Weight 291 lbs 02/17/2024 Oximetry 93 % 02/17/2024 BMI 39.46 kg/m2 02/17/2024 Encounters Encounter Location Date Provider Diagnosis [facility] [place], [place] [id number] 02/17/2024 Pau Silva Vertebrogenic low ba ck pain M54.51 ; Other chronic pain G89.29 and Other sleep disorders G47.8 ASSESSMENTS Encounter Date Diagnosis Assessment Notes Treatment Notes Treatment Clinical Notes 02/17/2024 Vertebrogenic low back pain (ICD-10 - M54.51) Chronic lumbar spine pain. 02/17/2024 Other chronic pain (ICD-10 - G89.29) Patient reports that taking his pain medication allows him to be more active. Plan to continue oral opioid medication management. Patient to use up left over Tylenol #3 tablets for lesser pain, substituting one for a corresponding [place] dose. 02/17/2024 Other sleep disorders (ICD-10 - G47.8) Patient has history of a sleep disorder with some hypersomnia. Plan to continue to restrict opioid use in relation to sleep. 02/17/2024 Other PLAN OF TREATMENT Medication Medication Name Sig Start Date Stop Date Notes acetaminophen-hydrocodon e 325 mg-5 mg 1 tab orally Q4H prn pain (max 4/day; hold within 4H of planned sleep) for 28 days 02/17/2024 Do not fill prior to 02/24/24. ICD-10: G89.29 acetaminophen-hydrocodon e 325 mg-5 mg 1 tab orally Q4H prn pain (max 4/day; hold within 4H of planned sleep) for 28 days 02/17/2024 Do not fill prior to 03/23/24. ICD-10: G89.29 Treatment Notes Assessment Notes Vertebrogenic low back pain Chronic lumb ar spine pain. Other chronic pain Patient reports that taking his pain medication allows him to be more active. Plan to continue oral opioid medication management. Patient to use up left over Tylenol #3 tablets for lesser pain, substituting one for a corresponding [place] dose. Other sleep disorders Patient has histor y of a sleep disorder with some hypersomnia. Plan to continue to restrict opioid use in relation to sleep. Next Appt Details Follow Up: 2 month Rx visit. , Reason: Provider Name:Pernell Jimenez son, 06/15/2024 09:20:00 AM, [address] [facility], [place], [place], [id number], History and Physical Notes * HPI (History of Present Illness) Category Sub-Category Detail Notes Lumbar Spine injury: tingling/numbness in the BLE up to the mid-holcomb; patient has related these symptoms to his diabetes pain in the bilateral low er back. This pain is described as constant aching with burning. This pain extends into the hips, groin, and lower abdomen. The back pain is aggravated with bending over, all lifting, and climbing stairs. This pain is somewhat alleviated with use of Witch Tracey and by sitting in his recliner with his feet elevated radiation of pain previous surgery: weakness Medications [place] (hydrocodone / acetaminoph en) 325 mg-5 mg, 1 tab, orally, Q4H prn pain (max 4/day; hold within 4H of planned sleep), 28 days, 112, Refills 0. Notes: Prescriptions given (2) on 12/23/23. Patient reports good benefit, as evidenced by improved ability to sit, stand up straight and walk, with quantity 36 and 0 prescription(s) remaining. Last fill date: 01/27/24 Tylenol #3 (codeine / acetaminophen) 300 mg-30 mg, 1 tab, orally, Q4H prn pain (max 4/day; hold within 4H of planned sleep), 28 days, 112, Refills 1 (last prescribed 10/28/23); discontinued 12/23/23 - qty 15 remaining Xarelto (rivaroxaban) is managed per Dr. Flash Olivares; will address / send request for anticoagulation cessation recommendations as the need arises Previous Therapy Previous therapy: topical agent therapy with some benefit; remote chiropractic therapy with history of benefit (2008); home exercises with history of no benefit (2018); ice/heat therapy with history of no benefit (2018) Medication history: Mobic 15 mg; Neuront in 300 mg; ibuprofen; OTC Witch Tracey topical applications Previous Imaging/Studies MRI of the L-spine on [...]
--- OUTSIDE RECORDS SUMMARY | 2024-05-24 07:57 | XMS_ITS | Patient Health Record ---
Author Name Unknown Organization [facility] [employer] Address [address] [place], [place] [id number] Care Team Providers Care Network Consultant Name Role Phone Sergio Mcintyre Primary Care Provider Jose Trinh MD, Pernell Unavailable [phone] Nanci Javier Unavailable Unavailabl Pau Matthews Unavailable [phone] ALLERGIES Allergen (clinical drug ingredient) Drug/Non Drug Allergy documented on EMR Reaction Allergy Type Onset Date Status tirzepatide Mounjaro diarrhea Drug Allergy Activ e RESULTS Component Value Reference Range Notes Urine tox screen / MS if ind icated Reviewed date:10/28/2023 12:01:35 PM Interpretation:Consistent Performing Lab: Notes/Report: Consistent REASON FOR REFERRAL No Information MEDICATIONS Medication SIG (Take, Route, Frequency, Duration) Notes Start Date End Date Status amLODIPine 10 mg 1 tab(s) orally once a day Active busPIRone 30 mg 1 tab orally 2 times a day Active gabapentin 300 mg 1 cap po orally QID Active gemfibrozil 600 mg 1 tab orally 2 times a day Active chlorthalidone 25 mg 1 tab(s) orally onc e a day for 30 day(s) Active fluticasone nasal 50 mcg/inh 1 spray intranasally once a day Active meloxicam 15 mg 1 tab po orally Q24H prn pain; take with food Active Acetaminophen-Hydrocodo ne Bitartrate 325 mg-5 mg 1 tab orally Q4H prn pain (max 4/day; hold within 4H of planned sleep) for 28 days 12/23/2023 Active Metoprolol Tartrate 100 mg 1 tab orally 2 times a day Active hydrochlorothiazide-los clara 25 mg-100 mg 1/2 tab orally 2 times a day Active Jardiance 25 mg 1 tab(s) orally once a day (in the morning) 05/04/2023 Active Xarelto 20 mg 1 tab orally once a day Active acetaminophen-hydrocodo ne 325 mg-5 mg 1 tab orally Q4H prn pain (max 4/day; hold within 4H of planned sleep) for 28 days Do not fill prior to 05/19/24. ICD-10: G89.29 04/20/2024 Active albuterol 90 mcg/inh 2 puffs inhaled jojo ry 6 hours 11/14/2020 Active Mucinex 600 mg 1 tab(s) orally ever y 12 hours 10/28/2023 Active mupirocin topical 2% 1 yany applied topically 3 times a day for 5 day(s) Active acetaminophen-hydrocodo ne 325 mg-5 mg 1 tab orally Q4H prn pain (max 4/day; hold within 4H of planned sleep) for 28 days Do not fill prior to 04/21/24. ICD-10: G89.29 04/20/2024 Active SOCIAL HISTORY Tobacco Use: Social History [...] former smoker When did you stop smoking? 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 (Z79.891) Active confirmed High risk drug monitoring status (027827162) Problem Diabetes mellitus due to underlying condition with diabetic neuropathy, unspecified (E08.40) Active confirmed Diabetic neurop athy (338287903) Problem Other sleep disorders (G47.8) Active confirmed Sleep disorder (09069083) Problem Other chronic pain (G89.29) Active confirmed Chronic pain (63214404) Problem Spondylolisthesi s, lumbar region (M43.16) Active confirmed Acquired spondylolisthesis (146170249) Problem Pain in left foot (M79.672) Active confirmed Pain in left foot (617566993254189) Problem Other chcf (current) drug therapy (Z79.899) Active confirmed Long-term curre nt use of drug therapy (228948885) Problem Spinal stenosis, lumbar region without neurogenic claudication (M48.061) Active confirmed Spinal stenosis of lumbar region (28189965) Problem Vertebrogenic low back pain (M54.51) Active confirmed Pain in lumbar spine (328481250) VITAL SIGNS Temperature 97.8 degrees Fahrenheit 04/20/2024 Blood pressure diastolic 93 mm Hg 04/20/2024 Oximetry 98 % 04/20/2024 Height 72 in 04/20/2024 Blood pressure systolic 153 mm Hg 04/20/2024 Weight 289.8 lbs 04/20/2024 BMI 39.30 kg/m2 04/20/2024 Encounters Encounter Location Date Provider Diagnosis [facility] [place] [address] [place], [place] [id number] 10/28/2023 Pau Silva Vertebrogenic low ba ck pain M54.51 ; Other chronic pain G89.29 and terminal supervisor (current) use of opiate analgesic Z79.891 [facility], [address] [id number] 12/23/2023 Pau Silva Vertebrogenic low ba ck pain M54.51 ; Other chronic pain G89.29 and Other sleep disorders G47.8 [facility], [address] [id number] 02/17/2024 Pau Silva Vertebrogenic low ba ck pain M54.51 ; Other chronic pain G89.29 and Other sleep disorders G47.8 [facility], [address] [id number] 04/20/2024 Pau Silva Vertebrogenic low ba ck pain M54.51 ; Other chronic pain G89.29 and Other sleep disorders G47.8 ASSESSMENTS Encounter Date Diagnosis Assessment Notes Treatment Notes Treatment Clinical Notes 10/28/2023 Vertebrogenic low back pain (ICD-10 - M54.51) Chronic lumbar spine pain. 12/23/2023 Vertebrogenic low back pain (ICD-10 - M54.51) Chronic lumbar spine pain. 02/17/2024 Vertebrogenic low back pain (ICD-10 - M54.51) Chronic lumbar spine pain. 04/20/2024 Vertebrogenic low back pain (ICD-10 - M54.51) Chronic lumbar spine pain. 04/20/2024 Other sleep disorders (ICD-10 - G47.8) Plan to continue to restrict opioid use in relation to sleep. 04/20/2024 Other chronic pain (ICD-10 - G89.29) Patient reports that taking his pain medication allows him to continue working. Plan to continue oral opioid medication management. 02/17/2024 Other sleep disorders (ICD-10 - G47.8) Patient has history of a sleep disorder with some hypersomnia. Plan to continue to restrict opioid use in relation to sleep. 02/17/2024 Other chronic pain (ICD-10 - G89.29) Patient reports that taking his pain medication allows him to be more active. Plan to continue oral opioid medication management. Patient to use up left over Tylenol #3 tablets for lesser pain, substituting one for a corresponding [place] dose. 12/23/2023 Other sleep disorders (ICD-10 - G47.8) Patient has history of a sleep disorder with some hypersomnia. Plan to continue to restrict opioid use in relation to sleep. 12/23/2023 Other chronic pain (ICD-10 - G89.29) Patient reports that taking his current pain medication is not adequately managing his symptoms. He is requesting a different medication. Plan to continue oral opioid medication management with opioid rotation to [place] 5 mg/325 mg tablets. He confirms he has taken this in the past with no difficulties following surgery. 10/28/2023 [facility] (current) use of opiate analgesic (ICD-10 - Z79.891) 2022 opioid (OUD) risk tool score = 0. This places the patient in the low risk category. Plan urine toxicology screen today to monitor compliance regarding use of prescribed codeine and for the presence of any unprescribed or illicit drugs. 10/28/2023 Other chronic pain (ICD-10 - G89.29) Patient reports that taking his pain medication allows him to be more active. Plan to continue oral opioid medication management. Patient with history of some hypersomnia. Plan to continue to restrict opioid use in relation to sleep for sfety concerns. 10/28/2023 Other 12/23/2023 Other 02/17/2024 Other 04/20/2024 Other PLAN OF TREATMENT Next Appt Details Provider Name:Pernell Jimenez son, 06/15/2024 09:20:00 AM, [address], [place], [place], [id number], Insurance Providers Payer Name Payer Address Payer Phone Subscriber Number Group Number Insured Name Patient Relationship to Insured Coverage Start Date Coverage End Date [employer] [facility] [address] [place] [address] [id number] Ortiz Keene Self - patient is the insured MEDICAL (GENERAL) HISTORY Medical History History ICD Code Low back pain Foot pain, left, Charcot's arthropathy Right knee pain Left shoulder pain A-fib Diabetes mellitus type II Possible COPD (history of tobacco use an d albuterol medication Rx) Sleep disorder with some hypersomnia Obesity, moderate (history of morbid obe sity) Surgical History Surgery Date(Month/Year) Debridement of foot abscess, left, perfo rmed at [facility], 2016 Angiogram, performed at [facility] by Dr. Olivares, 2016 Right foot surgery, tendon repair (x 2) and hammer toe repair 2018 Left foot surgery, performed at [facility] by Feli Srivastava, 02/24/19 Right foot surgery, tendon c lipped right 4th toe performed at [facility] by Dr. Srivastava, 05/2022 Hospitalization History Reason Date(Month/Year) Pancreatitis, treated at [facility], 03/02/20 - 03/05/20
--- OUTSIDE RECORDS SUMMARY | 2024-05-24 07:57 | XMS_ITS ---
Author Name Unknown Organization [facility] Address [address] [place], [place] [id number] Care Team Providers Care Plant Tech Name Role Phone Sergio Mcintyre Primary Care Provider Unav jarvisable Ziggy SPENCER, Pernell Unavailable [phone] Nanci Javier Unavailable Unavailabl btetina KAMARA, Pau Unavailable [phone] ALLERGIES Allergen (clinical drug ingredient) Drug/Non Drug Allergy documented on EMR Reaction Allergy Type Onset Date Status tirzepatide Mounjaro diarrhea Drug Allergy Activ e REASON FOR VISIT Patient states he is here today for my back {low back pain} MEDICATIONS Medication SIG (Take, Route, Frequency, Duration) Notes Start Date End Date Status Metoprolol Tartrate 100 mg 1 tab orally 2 times a day Active Mucinex 600 mg 1 tab(s) orally ever y 12 hours 10/28/2023 Active mupirocin topical 2% 1 yany applied topically 3 times a day for 5 day(s) Active Xarelto 20 mg 1 tab orally once a day Active meloxicam 15 mg 1 tab po orally Q24H prn pain; take with food Active hydrochlorothiazide-l osartan 25 mg-100 mg 1/2 tab orally 2 times a day Active Jardiance 25 mg 1 tab(s) orally once a day (in the morning) 05/04/2023 Active gabapentin 300 mg 1 cap po orally QID Active gemfibrozil 600 mg 1 tab orally 2 times a day Active busPIRone 30 mg 1 tab orally 2 times a day Active fluticasone nasal 50 mcg/inh 1 spray intranasally once a day Active albuterol 90 mcg/inh 2 puffs inhaled jojo ry 6 hours 11/14/2020 Active Acetaminophen-Hydroco done Bitartrate 325 mg-5 mg 1 tab orally Q4H prn pain (max 4/day; hold within 4H of planned sleep) for 28 days Do not fill prior to 01/26/24. ICD-10: G89.29 12/23/2023 Active amLODIPine 5 mg 1 tab(s) orally once a day for 30 day(s) Active Acetaminophen-Hydroco done Bitartrate 325 mg-5 mg 1 tab orally Q4H prn pain (max 4/day; hold within 4H of planned sleep) for 7 days Do not fill prior to 12/29/23. ICD-10: G89.29 12/23/2023 Active Acetaminophen-Hydroco done Bitartrate 325 mg-5 mg 1 tab orally Q4H prn pain (max 4/day; hold within 4H of planned sleep) for 21 days Do not fill prior to 01/05/24. ICD-10: G89.29 12/23/2023 Active SOCIAL HISTORY Tobacco Use: Social History [...] you stop smoking? 1988 VITAL SIGNS Temperature 98.2 degrees Fahrenheit 12/23/19 24 Blood pressure systolic 173 mm Hg 12/23/19 24 Blood pressure diastolic 92 mm Hg 024 Height 72 in 12/23/2023 Weight 292 lbs 12/23/2023 Oximetry 98 % 12/23/2023 BMI 39.60 kg/m2 12/23/2023 Encounters Encounter Location Date Provider Diagnosis [facility] [id number] [place], [place] [id number] 12/23/2023 Pau Silva Vertebrogenic low ba ck pain M54.51 ; Other chronic pain G89.29 and Other sleep disorders G47.8 ASSESSMENTS Encounter Date Diagnosis Assessment Notes Treatment Notes Treatment Clinical Notes 12/23/2023 Vertebrogenic low back pain (ICD-10 - M54.51) Chronic lumbar spine pain. 12/23/2023 Other chronic pain (ICD-10 - G89.29) Patient reports that taking his current pain medication is not adequately managing his symptoms. He is requesting a different medication. Plan to continue oral opioid medication management with opioid rotation to Met[place] 5 mg/325 mg tablets. He confirms he has taken this in the past with no difficulties following surgery. 12/23/2023 Other sleep disorders (ICD-10 - G47.8) Patient has history of a sleep disorder with some hypersomnia. Plan to continue to restrict opioid use in relation to sleep. 12/23/2023 Other PLAN OF TREATMENT Medication Medication Name Sig Start Date Stop Date Notes Acetaminophen-Hydrocodon e Bitartrate 325 mg-5 mg 1 tab orally Q4H prn pain (max 4/day; hold within 4H of planned sleep) for 28 days 12/23/2023 Do not fill prior to 01/26/24. ICD-10: G89.29 acetaminophen-codeine 300 mg-30 mg 1 tab orally Q4H prn pain (max 4/day; hold within 4H of planned sleep) Acetaminophen-Hydrocodon e Bitartrate 325 mg-5 mg 1 tab orally Q4H prn pain (max 4/day; hold within 4H of planned sleep) for 7 days 12/23/2023 Do not fill prior to 12/29/23. ICD-10: G89.29 Acetaminophen-Hydrocodon e Bitartrate 325 mg-5 mg 1 tab orally Q4H prn pain (max 4/day; hold within 4H of planned sleep) for 21 days 12/23/2023 Do not fill prior to 01/05/24. ICD-10: G89.29 Treatment Notes Assessment Notes Vertebrogenic low back pain Chronic lumb ar spine pain. Other chronic pain Patient reports that taking his current pain medication is not adequately managing his symptoms. He is requesting a different medication. Plan to continue oral opioid medication management with opioid rotation to Metz 5 mg/325 mg tablets. He confirms he has taken this in the past with no difficulties following surgery. Other sleep disorders Patient has histor y of a sleep disorder with some hypersomnia. Plan to continue to restrict opioid use in relation to sleep. Next Appt Details Follow Up: 2 month Rx visit. , Reason: Provider Name:Pernell Jimenez son, 06/15/2024 09:20:00 AM, [address] [facility] [employer] [facility], [place], [place], [id number], History and Physical Notes * HPI (History of Present Illness) Category Sub-Category Detail Notes Lumbar Spine injury: tingling/numbness in the BLE up to the mid-holcomb; patient has related these symptoms to his diabetes pain in the bilateral low er back. This pain is described as constant aching with burning. This pain extends into the hips. The back pain is aggravated with bending over, all lifting, and climbing stairs. This pain is somewhat alleviated with use of witch shara and by sitting in his recliner with his feet elevated radiation of pain previous surgery: weakness Medications Tylenol #3 (codeine / acetaminop hen) 300 mg-30 mg, 1 tab, orally, Q4H prn pain (max 4/day; hold within 4H of planned sleep), 28 days, 112, Refills 1 (last prescribed 10/28/23). Patient reports minimal benefit, although, improved ability to stand and walk noted - with quantity 34 remaining and 0 refills; quantity 70 dispensed. Last fill date: 12/13/23 Xarelto (rivaroxaban) is managed per Dr. Flash Olivares; will address / send request for anticoagulation cessation recommendations as the need arises Previous Therapy Previous therapy: remote chirop ractic care with history of benefit (2008); home exercises with history of no benefit (2018); ice/heat therapy with history of no benefit (2018) Medication history: Mobic 15 mg; Neuront in 300 mg; ibuprofen Previous Imaging/Studies MRI of the L-spine on [...]
[2024-05-24 08:44] VITALS: BP 145/95; PULSE 59; RESP 18; TEMP 36.3; O2SAT 98
[2024-05-24 08:57] LABS: Glucose Point of Care 116 mg/dL (70-110)
[2024-05-24] MEDS: sodium chloride 0.9% 1,000 ML 30 ML IV (08:58)
--- NOTE | 2024-05-24 09:15 | ANES.PREANE2 ---
Pre-Anesthetic Assessment Height/Weight: Height 1.83 m Weight 130.635 kg Temp Pulse Resp BP Pulse Ox O2 Del Method 97.4 F L 59 L 18 145/95 98 Room Air 05/24/24 08:44 05/24/24 08:44 05/24/24 08:44 05/24/24 08:44 05/24/24 08:44 05/24/24 08:44 Preop Diagnosis: ABD Pain Operation Date: 05/24/24 10:00 Proposed Procedures p Colonoscopy 23660, G0121, Z12.11 72361, R14.0(Not Applicable) - Darek Santos DO s EGD(Not Applicable) - Darek Santos DO Familial anesthetic complications: none Was Beta Evette taken within 24 hours: Yes Was Clonidine taken within 24 hours: N/A Last intake: Intake Last Liquid Date 05/24/24 Last Liquid Time 05:00 Last Solid Date 05/22/24 Last Solid Time 19:00 Social Tobacco chews Exam alert, oriented x 3, clear to auscultation bilaterally and regular rate & rhythm Airway Submandibular: within normal limits Cervical ROM: within normal limits Mallampati: Class III Dentition: other Comments: Comments: missing several History/ROS No significant history except as noted and No significant complaints Pulmonary None reported CV/HEM Congestive Heart Failure, Hypertension and None reported Chronic Renal Insufficiency Hepatic None reported GI None reported Metabolic Diabetes Mellitus and Morbid Obesity Anesthetic Plan ASA status: 3 Anesthesia: MAC Risk of > 500 ml blood loss (7ml/kg in children): No Medications/Allergies Home Medications Medication Instructions Recorded Confirmed Last Taken Type diabetic supplies, miscellan. #1 ea 09/16/20 04/25/24 Unknown Rx [place] boot #1 ea 07/15/21 04/25/24 Unknown Rx Diabetic Shoes #1 ea 12/15/21 04/25/24 Unknown Rx empagliflozin 25 mg tablet 25 mg PO DAILY 03/24/23 05/22/24 05/20/24 History (Jardiance) Darco Toe Splint #1 ea 04/20/23 04/25/24 Unknown Rx blood-glucose meter (OneTouch #1 ea 07/16/23 04/25/24 Unknown Rx Verio Reflect Meter) metoprolol tartrate 100 mg tablet 100 mg PO BID #180 tabs 11/19/23 05/22/24 05/24/24 Rx blood sugar diagnostic (OneTouch #100 strips 01/14/24 04/25/24 Unknown Rx Verio test strips) losartan 100 mg tablet 100 mg PO DAILY #90 tabs 01/14/24 05/22/24 05/22/24 Rx rivaroxaban 20 mg tablet (Xarelto) 20 mg PO QDAY #90 tabs 02/04/24 05/22/24 05/21/24 Rx chlorthalidone 25 mg tablet 25 mg PO DAILY 04/17/24 05/22/24 05/22/24 History hydrocodone 5 mg-acetaminophen 325 1 tab PO Q4H PRN Pain 04/17/24 05/22/24 05/24/24 History mg tablet buspirone 30 mg tablet 30 mg PO BID 05/22/24 05/22/24 05/24/24 History fluticasone propionate 50 1 spray intranasal DAILY PRN 05/22/24 05/22/24 Unknown History mcg/actuation nasal Allergy Symptoms spray,suspension gabapentin 300 mg capsule 600 mg PO BID 05/22/24 05/22/24 05/24/24 History gemfibrozil 600 mg tablet 600 mg PO BID 05/22/24 05/22/24 05/22/24 History Allergies Allergy/AdvReac Type Severity Reaction Status Date / Time tirzepatide [From Roselyn] Allergy Severe ADR-Abdominal Verified 05/22/24 10:18 Pain Current Medications Generic Name Dose Route Start Last Admin Trade Name Freq PRN Reason Stop Dose Admin Sodium Chloride 1,000 mls @ 30 mls/hr 05/24/24 08:45 05/24/24 08:58 Sodium Chloride 0.9% IV 05/25/24 08:44 30 mls/hr .Q24H RANDALL Administration PFSH Anesthesia Medical History CHF (congestive heart failure) Cardiomyopathy Onychomycosis Hammer toes of both feet Bilateral bunions Anxiety History of atrial flutter -Acute episode in 2017, required cardioversion -Rate controlled, continue to monitor heart rate -Continue beta-evette, anticoagulation with Xarelto Hypertension Charcot's arthropathy Managed by Dr. Srivastava -Arthropathy involves left lower extremity Non-pressure chronic ulcer of other part of right foot with unspecified severity Coronary artery disease involving [place] heart without angina pectoris Diabetes mellitus CKD (chronic kidney disease) Type 2 diabetes mellitus with diabetic chronic kidney disease -hx of NIDDM type II, on metformin -controlled based on A1c-7.2 -Accucheks, ISS, hypoglycemia precautions -consistent carb diet once PO appropriate Surgical History Hx of foot surgery left foot /sharko surgery with DR Srivastava Status post incision and drainage Left foot abscess 2016 Family History Brother CAD (coronary artery disease) Diabetes Hypertension Father Diabetes Hypertension Mother Hypertension Denies family history of Clotting disorder Dementia Hyperlipidemia Psychiatric illness Chronic kidney disease (CKD) Suicide Anesthesia complication Bleeding disorder Family history of premature coronary artery disease Lung disease Cancer Stroke Social History Smoking and tobacco/nicotine status: former use of tobacco/nicotine Second hand smoke exposure: No Alcohol intake: former Substance/Drug Use: never Data Anesthesia Cardiac Studies: Echocardiogram Ultrasound 12/16/20 Sestamibi Stress Test (Cardiology) 12/16/20
--- NOTE | 2024-05-24 09:19 | P.HP_ITS ---
Providers/Chief Complaint Primary Care Provider: ANH Olivares Chief Complaint: Z12.11 History of Present Illness Ortiz Keene is a 58 year old male Review of Systems General: Reports: 10 or more systems reviewed and unremarkable except in HPI and below Medications/Allergies Home Medications Medication Instructions Recorded Confirmed Last Taken Type diabetic supplies, miscellan. #1 ea 09/16/20 04/25/24 Unknown Rx [place] boot #1 ea 07/15/21 04/25/24 Unknown Rx Diabetic Shoes #1 ea 12/15/21 04/25/24 Unknown Rx empagliflozin 25 mg tablet 25 mg PO DAILY 03/24/23 05/22/24 05/20/24 History (Jardiance) Darco Toe Splint #1 ea 04/20/23 04/25/24 Unknown Rx blood-glucose meter (OneTouch #1 ea 07/16/23 04/25/24 Unknown Rx Verio Reflect Meter) metoprolol tartrate 100 mg tablet 100 mg PO BID #180 tabs 11/19/23 05/22/24 05/24/24 Rx blood sugar diagnostic (OneTouch #100 strips 01/14/24 04/25/24 Unknown Rx Verio test strips) losartan 100 mg tablet 100 mg PO DAILY #90 tabs 01/14/24 05/22/24 05/22/24 Rx rivaroxaban 20 mg tablet (Xarelto) 20 mg PO QDAY #90 tabs 02/04/24 05/22/24 05/21/24 Rx chlorthalidone 25 mg tablet 25 mg PO DAILY 04/17/24 05/22/24 05/22/24 History hydrocodone 5 mg-acetaminophen 325 1 tab PO Q4H PRN Pain 04/17/24 05/22/24 05/24/24 History mg tablet buspirone 30 mg tablet 30 mg PO BID 05/22/24 05/22/24 05/24/24 History fluticasone propionate 50 1 spray intranasal DAILY PRN 05/22/24 05/22/24 Unknown History mcg/actuation nasal Allergy Symptoms spray,suspension gabapentin 300 mg capsule 600 mg PO BID 05/22/24 05/22/24 05/24/24 History gemfibrozil 600 mg tablet 600 mg PO BID 05/22/24 05/22/24 05/22/24 History Allergies Allergy/AdvReac Type Severity Reaction Status Date / Time tirzepatide [From Mounjaro] Allergy Severe ADR-Abdominal Verified 05/22/24 10:18 Pain PFSH Acute PFSH: Medical History CHF (congestive heart failure) Cardiomyopathy Onychomycosis Hammer toes of both feet Bilateral bunions Anxiety History of atrial flutter -Acute episode in 2017, required cardioversion -Rate controlled, continue to monitor heart rate -Continue beta-maria isabel, anticoagulation with Xarelto Hypertension Charcot's arthropathy Managed by Dr. Srivastava -Arthropathy involves left lower extremity Non-pressure chronic ulcer of other part of right foot with unspecified severity Coronary artery disease involving [place] heart without angina pectoris Diabetes mellitus CKD (chronic kidney disease) Type 2 diabetes mellitus with diabetic chronic kidney disease -hx of NIDDM type II, on metformin -controlled based on A1c-7.2 -Accucheks, ISS, hypoglycemia precautions -consistent carb diet once PO appropriate Surgical History Hx of foot surgery left foot /sharko surgery with DR Srivastava Status post incision and drainage Left foot abscess 2016 Family History Brother CAD (coronary artery disease) Diabetes Hypertension Father Diabetes Hypertension Mother Hypertension Denies family history of Clotting disorder Dementia Hyperlipidemia Psychiatric illness Chronic kidney disease (CKD) Suicide Anesthesia complication Bleeding disorder Family history of premature coronary artery disease Lung disease Cancer Stroke Social History Smoking and tobacco/nicotine status: former use of tobacco/nicotine Second hand smoke exposure: No Alcohol intake: former Substance/Drug Use: never Vitals/I&O/Wt Last Vital Signs Temp 97.4 F L 05/24/24 08:44 Pulse 59 L 05/24/24 08:44 Resp 18 05/24/24 08:44 BP 145/95 05/24/24 08:44 Pulse Ox 98 05/24/24 08:44 O2 Del Method Room Air 05/24/24 08:44 Weight last 48 hrs Weight 288 lb A&P Assessment and plan (1) Bloating: (2) Screening for colon cancer: Plan EGD and colonoscopy Attestations Medical Necessity Statement*: Home Coding Level of Care Code Acute Code for Chg Fwd Diagnoses Bloating R14.0 Screening for colon cancer Z12.11
[2024-05-24] MEDS: EPINEPHrine 1 mg/mL INJ XX (09:43)
[2024-05-24 10:08] VITALS: BP 125/79; PULSE 75; RESP 16; TEMP 36.3; O2SAT 95
[2024-05-24 10:25] VITALS: BP 131/81; PULSE 73; RESP 16; O2SAT 98
--- NOTE | 2024-05-24 11:33 | ANE.PACU2 ---
Inpatient post-anesthesia follow up: Airway intact: Yes Vital signs: Temperature 97.4 F Pulse Rate 73 Respiratory Rate 16 Blood Pressure 131/81 Pulse Oximetry 98 Oxygen Delivery Me thod Room Air Oxygen Flow Rate Fraction of Inspir ed Oxygen Hydration adequate: Yes Nausea and vomiting: No Pain level: 1 Mental status: Baseline
== END 2024-05-24 10:50 | disposition home or self-care (01) ==
PROVIDERS: PCP Registered Nurse; Visit Provider Surgery
PROC: 0DJD8ZZ Inspection of Lower Intestinal Tract, Via Natural or Artificial Opening Endoscopic (ICD-10-PCS; CPT 45378; principal; 2024-05-24 10:00)
PROC: 0DJ08ZZ Inspection of Upper Intestinal Tract, Via Natural or Artificial Opening Endoscopic (ICD-10-PCS; CPT 43235; 2024-05-24 10:00)
DX: Z12.11 Encounter for screening for malignant neoplasm of colon (principal); D12.5 Benign neoplasm of sigmoid colon; D12.3 Benign neoplasm of transverse colon; R14.0 Abdominal distension (gaseous); K29.50 Unspecified chronic gastritis without bleeding; K21.00 Gastro-esophageal reflux disease with esophagitis, without bleeding; K29.80 Duodenitis without bleeding; K57.30 Diverticulosis of large intestine without perforation or abscess without bleeding; E11.22 Type 2 diabetes mellitus with diabetic chronic kidney disease; I13.0 Hypertensive heart and chronic kidney disease with heart failure and stage 1 through stage 4 chronic kidney disease, or unspecified chronic kidney disease; N18.9 Chronic kidney disease, unspecified; I50.9 Heart failure, unspecified; F41.9 Anxiety disorder, unspecified; Z79.01 Long term (current) use of anticoagulants; I25.10 Atherosclerotic heart disease of native coronary artery without angina pectoris; Z87.891 Personal history of nicotine dependence
CPT/HCPCS: 36416; 43239; 45385; 82962; 88305; 88342; J0171; J2704; J7030

== ENCOUNTER → 2024-11-08 14:26 | Outpatient (BNVA) | payer OTHER, SELFPAY | PROVIDERS: PCP Registered Nurse; Visit Provider Podiatrist Foot & Ankle Surgery | DX: L97.523 Non-pressure chronic ulcer of other part of left foot with necrosis of muscle (principal); E11.42 Type 2 diabetes mellitus with diabetic polyneuropathy; M21.6X2 Other acquired deformities of left foot; L60.3 Nail dystrophy; L84 Corns and callosities; L97.524 Non-pressure chronic ulcer of other part of left foot with necrosis of bone; E11.621 Type 2 diabetes mellitus with foot ulcer | CPT/HCPCS: 87070; 87075; 87205 ==

== ENCOUNTER → 2024-12-07 09:52 | Outpatient (BNVA) | payer OTHER, SELFPAY | PROVIDERS: PCP Registered Nurse; Visit Provider Podiatrist Foot & Ankle Surgery | DX: E11.621 Type 2 diabetes mellitus with foot ulcer (principal); L97.524 Non-pressure chronic ulcer of other part of left foot with necrosis of bone; E11.42 Type 2 diabetes mellitus with diabetic polyneuropathy; M21.6X2 Other acquired deformities of left foot; L60.3 Nail dystrophy | CPT/HCPCS: 73630 ==

== ENCOUNTER 2024-12-15 08:40 | Day surgery (SDC) | payer OTHER, SELFPAY ==
[2024-12-15] VITALS (12 sets, daily range): BP systolic 107–154; BP diastolic 59–98; PULSE 59–74; RESP 14–20; TEMP 36.2–36.5; O2SAT 94–98; BMI 38.6
--- NOTE | 2024-12-15 | XR_ITS ---
WS: [id number] C-ARM RADIOGRAPHS LEFT CALCANEUS; 2 IMAGES HISTORY: FRANCES PICS COMPARISON: None available. Intraoperative imaging during intraoperative procedure. XR/XR foot LT 2V 00097 IMPRESSION: Intraoperative imaging during intraoperative procedure.
--- NOTE | 2024-12-15 09:02 | W.PM.OPSUD ---
Surgery/Procedure H&P Update DATE OF PROCEDURE: December 15, 2024 DATE H&P PERFORMED: 12/12/24 H&P UPDATE INFORMATION: I have reviewed H&P completed within last 30 days, I have examined patient prior to procedure, No changes to prior documentation and H&P is in [facility] EMR on date indicated PREOP DIAGNOSIS: Diabetic foot infection left foot PLANNED PROCEDURE: Operation Date: 12/15/24 11:00 Proposed Procedures p Incision of Bone Cortex(Left) - Placido Srivastava DPM s Exostectomy(Left) - Placido Srivastava DPM
[2024-12-15] MEDS: sodium chloride 0.9% 1,000 ML 30 ML IV (09:10)
--- NOTE | 2024-12-15 09:50 | ANES.PREANE2 ---
Pre-Anesthetic Assessment Height/Weight: Height 1.83 m Weight 129.274 kg Temp Pulse Resp BP Pulse Ox O2 Del Method 97.6 F 66 18 149/94 98 Room Air 12/15/24 08:54 12/15/24 08:54 12/15/24 08:54 12/15/24 08:54 12/15/24 08:54 12/15/24 08:54 Preop Diagnosis: Diabetic foot infection left foot Operation Date: 12/15/24 11:00 Proposed Procedures p Incision of Bone Cortex(Left) - Placido Srivastava DPM s Exostectomy(Left) - Placido Srivastava DPM Familial anesthetic complications: NOne Was Beta Evetet taken within 24 hours: Yes Was Clonidine taken within 24 hours: N/A Last intake: Intake Last Liquid Date 12/14/24 Last Liquid Time 19:00 Last Solid Date 12/14/24 Last Solid Time 19:00 Social Tobacco and No alcohol Exam alert, oriented x 3, clear to auscultation bilaterally and regular rate & rhythm Airway Mallampati: Class IV Dentition: chipped CV/HEM Atrial Fibrillation, Coronary Artery Disease, Congestive Heart Failure and Hypertension Chronic Renal Insufficiency Metabolic Diabetes Mellitus and Morbid Obesity Anesthetic Plan ASA status: 3 Anesthesia: MAC Risk of > 500 ml blood loss (7ml/kg in children): No Medications/Allergies Home Medications ?Medication ?Instructions ?Recorded ?Confirmed ?Last Taken ?Type diabetic supplies, miscellan. #1 ea 09/16/20 12/15/24 Unknown Rx [place] boot #1 ea 07/15/21 12/15/24 Unknown Rx Diabetic Shoes #1 ea 12/15/21 12/15/24 Unknown Rx empagliflozin 25 mg tablet 25 mg PO DAILY 03/24/23 12/15/24 12/13/24 History (Jardiance) Darco Toe Splint #1 ea 04/20/23 12/15/24 Unknown Rx blood-glucose meter (OneTouch #1 ea 07/16/23 12/15/24 Unknown Rx Verio Reflect Meter) blood sugar diagnostic (OneTouch #100 strips 01/14/24 12/12/24 Unknown Rx Verio test strips) losartan 100 mg tablet 100 mg PO DAILY #90 tabs 01/14/24 12/15/24 12/14/24 Rx chlorthalidone 25 mg tablet 25 mg PO DAILY 04/17/24 12/15/24 12/14/24 History Diabetic shoes #1 ea 08/08/24 12/15/24 Unknown Rx metoprolol tartrate 100 mg tablet 100 mg PO BID #180 tabs 11/06/24 12/15/24 12/15/24 Rx rivaroxaban 20 mg tablet (Xarelto) 20 mg PO QDAY #90 tabs 11/06/24 12/15/24 12/09/24 Rx doxycycline hyclate 100 mg capsule 100 mg PO BID 14 days #28 caps 11/30/24 12/15/24 12/14/24 Rx buspirone 30 mg tablet 30 mg PO BID 12/14/24 12/15/24 12/15/24 History fluticasone propionate 50 1 spray intranasal DAILY 12/14/24 12/15/24 12/14/24 History mcg/actuation nasal spray,suspension gabapentin 300 mg capsule 600 mg PO BID 12/14/24 12/15/24 12/14/24 History gemfibrozil 600 mg tablet 600 mg PO BID 12/14/24 12/15/24 12/14/24 History pantoprazole 40 mg tablet,delayed 40 mg PO DAILY 12/14/24 12/15/24 12/15/24 History release hydrocodone 10 mg-acetaminophen 1 tab PO Q6H PRN pain 7 days #28 12/15/24 Unknown Rx 325 mg tablet tabs Allergies Allergy/AdvReac Type Severity Reaction Status Date / Time tirzepatide (From [facility]) Allergy Severe ADR-Abdominal Verified 12/12/24 12:48 Pain Current Medications Generic Name Dose Route Start Last Admin Trade Name Freq PRN Reason Stop Dose Admin Sodium Chloride 1,000 mls @ 30 mls/hr 12/15/24 08:45 12/15/24 09:10 Sodium Chloride 0.9% IV 12/16/24 08:44 30 mls/hr .Q24H RANDALL Administration PFSH Anesthesia Medical History (Updated 12/15/24 @ 08:54 by Placido Srivastava DPM) Charcot's arthropathy Managed by Dr. Srivastava -Arthropathy involves left lower extremity CHF (congestive heart failure) Cardiomyopathy Onychomycosis Hammer toes of both feet Bilateral bunions Anxiety History of atrial flutter -Acute episode in 2017, required cardioversion -Rate controlled, continue to monitor heart rate -Continue beta-evette, anticoagulation with Xarelto Hypertension Non-pressure chronic ulcer of other part of right foot with unspecified severity Coronary artery disease involving [place] heart without angina pectoris Diabetes mellitus CKD (chronic kidney disease) Type 2 diabetes mellitus with diabetic chronic kidney disease -hx of NIDDM type II, on metformin -controlled based on A1c-7.2 -Accucheks, ISS, hypoglycemia precautions -consistent carb diet once PO appropriate Surgical History (Updated 12/15/24 @ 08:54 by Placido Srivastava DPM) Hx of foot surgery left foot /sharko surgery with DR Srivastava Status post incision and drainage Left foot abscess 2016 Family History Brother CAD (coronary artery disease) Diabetes Hypertension Father Diabetes Hypertension Mother Hypertension Denies family history of Clotting disorder Dementia Hyperlipidemia Psychiatric illness Chronic kidney disease (CKD) Suicide Anesthesia complication Bleeding disorder Family history of premature coronary artery disease Lung disease Cancer Stroke Social History Smoking and tobacco/nicotine status: never used tobacco/nicotine Second hand smoke exposure: No Alcohol intake: former Substance/Drug Use: never Data Anesthesia Cardiac Studies: Echocardiogram Ultrasound 12/16/20 Sestamibi Stress Test (Cardiology) 12/16/20
[2024-12-15] MEDS: ceFAZolin 3,000 MG in sodium chloride 0.9% (100 ml) 100 ML 200 MG IV (10:15)
[2024-12-15] MEDS: VANCOMYCIN ADD-Vantage 1,000 MG VIAL 1000 MG XX (10:39)
[2024-12-15] MEDS: BUPivacaine 0.5% INJ 10 mL 15 ML INJECTION (10:41)
[2024-12-15] MEDS: lidocaine 1% 10 ML INJ 15 ML INJECTION (10:41)
--- NOTE | 2024-12-15 11:24 | P.OP_ITS ---
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 CPT code 27048 Incision of bone cortex left second toe. CPT code 77351 Implants: 0.45 K wire, vancomycin, 2-0 Vicryl, 4-0 nylon, 3-0 Prolene Specimens removed/disposition: None Pathology: None Surgeon: Placido Srivastava DPM Information Analyst: Sabi Matt Estimated blood loss: 20 45 IV fluids: See intraoperative documentation Urine output: 0 Complications: No complications Brief History: X-ray left foot 3 view shows impressive plantar osseous prominence consistent with exostosis sequela from Charcot event measures approximately 2 cm protruding plantarly and approximate 3 cm in diameter. Patient would benefit from bony exostectomy as a means of surgical offloading to prevent ulceration. Also has a wound with exposed bone with acute osteomyelitis left second toe requires incision of bone cortex. I reviewed at length with the patient, the risks, potential complications, benefits, alternatives, expectations, and typical outcomes associated with the surgery. The risks and potential complications were explained in detail, including but not limited to infection, wound dehiscence or soft tissue complications, bleeding and hematoma, chronic edema, neuritis or nerve damage producing numbness or chronic pain, CRPS, failure to relieve pain or worsening pain, thick / painful / unsightly scar, limited motion / stiffness, malposition, delayed union, malunion, or nonunion, fracture, reaction to implants, anesthetic complications, venous thromboembolism, and deformity recurrence. I discussed the notion of no regrets with the patient as it pertains to complications and outcomes. The patient seemed to understand the nature of the proposed care and required convalescence. They asked appropriate questions, answered to their satisfaction. They are aware no guarantees can be made as to a satisfactory outcome and they understand there may be other possible unforeseen complications or outcomes not listed here that will be treated accordingly if they arise. There were no written or implied guarantees given to the patient. They gave informed consent to proceed. Procedure: Under mild sedation the patient was brought to the operating room and remained on the gurney in supine position. Timeout was performed. Anesthesia was then administered by the anesthesia service. Local esthesia was injected by myself consisting of one-to-one mixture 1% lidocaine and 0.5% to Marcaine plain total of 30 cc in a local field block left plantar midfoot and at left second ray. Well-padded pneumatic tourniquet applied to the left ankle. The left lower extremity was scrubbed, prepped and draped utilizing normal aseptic technique. Left foot was then elevated and tourniquet inflated to 250 mmHg. Attention was directed to the left second toe where a full-thickness wound with exposed head of the proximal phalanx of the second toe was visualized incision was performed to the wound sharply with a #15 blade and incised epidermis, dermis and subcutaneous tissue, tendinous structures and down to including bone of devitalized bone and this was incised down to healthy bleeding bone sharply with 15 blade pickups as well as bone nippers. The incision was irrigated with copious amounts of sterile saline solution. Due to the instability at the left second toe after bone debridement a K wire was placed intramedullary at the left second toe not crossing the metatarsal phalangeal joint confirmed with intraoperative C arm on AP oblique and lateral view, distal end was trimmed and covered with a Madyson ball. The incision was irrigated with saline solution and closed with 4-0 nylon. Attention was directed to the plantar rocker-bottom exostosis of the left foot with accompanying wound, adjacent to the wound incision was performed with dissection carried down to bone through subcutaneous tissue utilizing a combination of sharp and blunt technique. Care was taken to retract and preserve neurovascular and tendinous structures. All bleeders were ligated and cauterized as necessary. Bony exostosis was resected with osteotome and mallet and all rough edges smoothed. The incision was irrigated with copious amounts of sterile skin solution and closed with 2-0 Vicryl and 3-0 Prolene. Incisions were dressed with Xeroform, sterile 4 x 4's, Kerlix and Be wrap. Cam boot was applied to the left lower extremity. Left lower extremity tourniquet was then deflated and a prompt hyperemic response is noted to the distal digits of the left foot. Patient tolerated the procedure and anesthesia well and was transferred to the PACU with vital signs stable and vascular status intact. Following a period of postoperative monitoring he will be discharged home without home care instructions and scheduled follow-up.
--- NOTE | 2024-12-15 11:25 | W.PM.BPON ---
Date of Procedure: 12/24/23 Surgeon: Placido Srivastava DPM Laser/Electro Optics Technician(s): Delonte Procedure(s) performed: Incision of bone cortex left second toe, exostectomy left midfoot plantarly. Findings of the procedure(s): Devitalized bone at the head of the proximal phalanx left second toe, impressive bony exostosis left plantar foot. Estimated blood loss: 20 mL Specimen(s) removed: Bone from left second toe sent to microbiology for Gram stain culture and sensitivity Post-operative diagnosis: Osteomyelitis left second toe exostosis left foot
--- NOTE | 2024-12-15 12:40 | ANE.PACU2 ---
Inpatient post-anesthesia follow up: Airway intact: Yes Vital signs: Temperature 97.7 F Pulse Rate 74 Respiratory Rate 16 Blood Pressure 154/98 Pulse Oximetry 95 Oxygen Delivery Me thod Room Air Oxygen Flow Rate Fraction of Inspir ed Oxygen Hydration adequate: Yes Nausea and vomiting: No Pain level: 1 Mental status: Baseline
== END 2024-12-15 12:40 | disposition home or self-care (01) ==
PROVIDERS: PCP Registered Nurse; Visit Provider Podiatrist Foot & Ankle Surgery
PROC: (CPT 28005; principal; 2024-12-15 10:50)
PROC: (CPT 28288; 2024-12-15 10:50)
DX: E11.69 Type 2 diabetes mellitus with other specified complication (principal); E11.621 Type 2 diabetes mellitus with foot ulcer; E11.42 Type 2 diabetes mellitus with diabetic polyneuropathy; M21.6X2 Other acquired deformities of left foot; L60.3 Nail dystrophy; L97.524 Non-pressure chronic ulcer of other part of left foot with necrosis of bone; M89.8X7 Other specified disorders of bone, ankle and foot; E11.610 Type 2 diabetes mellitus with diabetic neuropathic arthropathy; E11.22 Type 2 diabetes mellitus with diabetic chronic kidney disease; I25.10 Atherosclerotic heart disease of native coronary artery without angina pectoris; I48.91 Unspecified atrial fibrillation; N18.9 Chronic kidney disease, unspecified; E66.01 Morbid (severe) obesity due to excess calories; Z68.38 Body mass index [BMI] 38.0-38.9, adult; K08.89 Other specified disorders of teeth and supporting structures; Z88.8 Allergy status to other drugs, medicaments and biological substances; I50.9 Heart failure, unspecified; I13.0 Hypertensive heart and chronic kidney disease with heart failure and stage 1 through stage 4 chronic kidney disease, or unspecified chronic kidney disease; Z79.84 Long term (current) use of oral hypoglycemic drugs; Z79.01 Long term (current) use of anticoagulants; Z79.899 Other long term (current) drug therapy
CPT/HCPCS: 28005; 28122; 73620; 76000; 87070; 87075; 87176; 87205; C1713; J0690; J1100; J2405; J2704; J3010; J3370; J3490; J7030; J9999

== ENCOUNTER 2025-01-05 08:23 | Outpatient (CLI) | payer OTHER, SELFPAY ==
--- NOTE | 2025-01-05 | ECG_ITS ---
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 The perfusion scan will be documented separately. DATA: Baseline heart rate was 58 beats per minute. Baseline blood pressure was 146/82 millimeters of mercury. Target heart rate was 163. Maximum heart rate achieved was 86. which was 52 % of the predicted target heart rate. Maximum blood pressure was 146/82 millimeters of mercury. The reason for ending the test was completion of the protocol. The patient did not experience any symptoms. ELECTROCARDIOGRAM: BASELINE: Sinus rhythm. Normal axis. Otherwise, no ST-T changes suggestive of ischemia noted. No arrhythmia noted. EXERCISE: After Lexiscan injection, no ST-T changes suggestive of ischemic noted. No arrhythmia noted. CONCLUSION: Please note due to baseline abnormality of the EKG specificity and sensitivity of the EKG portion of LexiScan MIBI stress test will be low 1. EKG not suggestive of ischemia 2. Lexiscan injection unremarkable. 3. Perfusion scan will be documented separately. Electronically Signed On 01-22-2025 20:13:17 CDT by GABE WILSON [email or web address]
[2025-01-05 09:30] VITALS: BMI 39.3
--- NOTE | 2025-01-05 09:31 | NMCV_ITS ---
NM keo perf SPECT r/s* [id number] Ortiz Keene Age: 59 Gender: M : 1965 Exam Date: 01/05/2025 09:31 Ordering Phys: Dione Lopez NP Technologist: SLY Rosales Exam Location: [facility] Indications: cp STRESS TEST Please see separate stress test report in [facility] for full findings IMAGE PROTOCOL Rest/Stress 1 Lexiscan Day Radiopharmaceutical Dose (mCi) Administration Site Administered by Rest: Tc-99m 10.4 IV Virginia Huerta, SOLUTION COORDINATOR Sestamibi Stress:Tc-99m 33 IV Virginia Deanna, SOLUTION COORDINATOR Sestamibi Rest: 05-Jan-2025 Discovery 630 Stress: 05-Jan-2025 Discovery 630 0.4mg Lexiscan. Images obtained in supine and prone position. SPECT RESULTS Technical Quality: Good Raw Data Analysis: Normal Image Corrections: No attenuation or motion correction applied Summed Stress Score: 1 Summed Rest Score: 2 Summed Difference Score: 1 PERFUSION FINDINGS There is a small area of mostly fixed perfusion defect seen in the apical inferior, apical lateral and inferolateral negron. This is consistent with small area of prior infarct with very minimal mini-infarct ischemia seen in these territories. FUNCTIONAL RESULTS (calculated via Gated SPECT) Stress Image LV EF (%): 70 Stress EDV (mL):108 TID: 1.07 Stress ESV (mL):32 FUNCTIONAL FINDINGS: There is normal left ventricular systolic function. IMPRESSIONS 1. Small areas of prior infarct with very small areas of mini-infarct ischemia seen in the apical inferior, apical lateral and inferolateral negron. 2. LV systolic function is normal Nicolas Lindquist MD (Electronically Signed) Final Date: 07 January 2025 17:05 S
[2025-01-05] MEDS: regadenoson 0.4 Mg/5 ml Syringe IVP (10:35)
[2025-01-05 10:47] VITALS: BP 122/74; PULSE 80
== END 2025-01-05 08:24 | disposition home or self-care (01) ==
LOC: CDL 08:27
PROVIDERS: PCP Registered Nurse; Visit Provider Nurse Practitioner Family
DX: Z02.89 Encounter for other administrative examinations (principal); R93.1 Abnormal findings on diagnostic imaging of heart and coronary circulation
CPT/HCPCS: 36415; 78452; 93017; 96374; A9500; J2785

== ENCOUNTER 2025-02-05 06:23 | Outpatient (CLI) | payer OTHER, SELFPAY ==
--- NOTE | 2025-02-05 06:38 | USCV_ITS ---
Ortiz Keene Age: 59 Gender: M : 1965 Exam Date: 02/05/2025 06:52 Ordering Phys: Dione Lopez NP Technologist: Exam Location: [facility] [place] Indication: chest pain BP: 130 / 85 HR: 56 Rhythm: Sinus Technical Quality: Adequate MEASUREMENTS (Male / Female) Normal Values 2D ECHO LV Diastolic Diameter PLAX 4.6 cm 4.2 - 5.9 / 3.9 - 5.3 cm IVS Diastolic Thickness 1.2 cm 0.6 - 1.0 / 0.6 - 0.9 cm IVS Systolic Thickness 1.4 cm LVPW Diastolic Thickness 1.2 cm 0.6 - 1.0 / 0.6 - 0.9 cm LVPW Systolic Thickness 1.6 cm LV Ejection Fraction 2D Teich 66.0 % LV Ejection Fraction MOD 4C 63.2 % LV Ejection Fraction MOD 2C 74.5 % LV Ejection Fraction 2C AL 74.7 % LA Diameter 2.1 cm RA Systolic Volume 4C AL 32.5 ml RA Systolic Volume 4C MOD 28.7 ml IVC Diameter 2.6 cm M-MODE LA Ao Ratio MM 1.2 AV Cusp Separation MM 3.1 cm DOPPLER AV Peak Velocity 131.0 cm/s LVOT Peak Velocity 109.0 cm/s MV Peak Velocity 82.0 cm/s MV Area PHT 3.2 cm squared Mitral E to A Ratio 1.1 TV Peak Velocity 174.0 cm/s TR Peak Velocity 182.0 cm/s TR Peak Gradient 13.2 mmHg TV Peak E Velocity 58.0 cm/s PV Peak Velocity 101.0 cm/s FINDINGS Left Ventricle Normal left ventricular size, systolic function and wall thickness, with no regional wall motion abnormalities. Left ventricular ejection fraction is estimated at 60 %. Grade I/IV diastolic dysfunction (abnormal relaxation filling pattern), normal to mildly elevated filling pressures. Right Ventricle The right ventricle is normal in size and function. Right Atrium The right atrium is normal in size. Left Atrium The left atrium is normal in size. Mitral Valve Structurally normal mitral valve without significant stenosis or prolapse. There is no mitral regurgitation. Aortic Valve Moderate aortic valve calcification. No aortic valve stenosis. Trace aortic valve regurgitation. Tricuspid Valve Trace tricuspid valve regurgitation. Pulmonic Valve Structurally normal pulmonic valve without significant stenosis. There is no pulmonic regurgitation. Pericardium Normal pericardium without effusion. Aorta Normal ascending aorta dimension. IVC The inferior vena cava appears normal. CONCLUSIONS Normal left ventricular size, systolic function and wall thickness, with no regional wall motion abnormalities. Left ventricular ejection fraction is estimated at 60 %. Grade I/IV diastolic dysfunction (abnormal relaxation filling pattern), normal to mildly elevated filling pressures. No significant valve abnormalities. There is no pericardial effusion. Right atrial pressure is around 5 mm of mercury. Flash Olivares MD (Electronically Signed) Final Date: 25 Feb 2025 17:23 S
== END 2025-02-05 06:24 | disposition home or self-care (01) ==
PROVIDERS: PCP Registered Nurse; Visit Provider Nurse Practitioner Family
DX: I50.32 Chronic diastolic (congestive) heart failure (principal); R93.1 Abnormal findings on diagnostic imaging of heart and coronary circulation; I35.8 Other nonrheumatic aortic valve disorders
CPT/HCPCS: 93306

== ENCOUNTER → 2025-02-23 11:08 | Outpatient (BNVA) | payer OTHER, SELFPAY | PROVIDERS: PCP Registered Nurse; Visit Provider Registered Nurse | DX: E11.9 Type 2 diabetes mellitus without complications (principal) | CPT/HCPCS: 83036 ==